=== PATIENT | male | born 1950 | race Caucasian/White ===

== ENCOUNTER 2017-12-22 18:50 | Inpatient (IN) | payer MEDICARE ==
[~2017-12-22] VITALS: Ht 172.7 cm; Wt 85.8 kg
[~2017-12-22 18:50] MED LIST: ACETAMINOPHEN650 MG PO; ASPIR 8181 MG PO; BACLOFEN10 MG PO; BUSPIRONE HCL5 MG PO; CARBAMAZEPINE200 MG PO; DICYCLOMINE HCL10 MG PO; FERROUS SULFATE PO; LASIX40 MG PO; LIDOCAINE; LORAZEPAM1 MG PO; MELOXICAM7.5 MG PO; METOPROLOL TART25 MG PO; METOPROLOL TART50 MG PO; NITROSTAT0.4 MG SL; NORCO 10-325 T1 EACH PO; POTASSIUM CHLO10 ME1 PO; SIMVASTATIN40 MG PO; WARFARIN SODIUM1 MG PO; WARFARIN SODIUM2 MG PO
[2017-12-22] MEDS ORDERED: METOPROLOL TART25 MG PO (19:13)
[2017-12-22] MEDS ORDERED: ASPIRIN325 MG PO (19:13)
[2017-12-22] MEDS ORDERED: ROPINIROLE HCL1 MG PO (19:13)
[2017-12-22] MEDS ORDERED: CARBAMAZEPINE200 MG PO (19:13)
[2017-12-22 19:15] LABS: BASOPHILS % 0.1 % (0.0-1.0); EOSINOPHILS # (AUTO) 0.2 (0.0-0.4); EOSINOPHILS % 1.3 % (0.0-6.0); HEMATOCRIT 37.3 % (38.2-49.6); HEMOGLOBIN 12.6 g/dL (14.0-18.0); LYMPHOCYTES # (AUTO) 0.4 (1.0-3.2); LYMPHOCYTES % 3.2 % (18.0-39.1); MEAN CORPUSCULAR HEMOGLOBIN 31.3 pg (28-32); MEAN CORPUSCULAR HGB CONC 33.8 g/dL (31-35); MEAN CORPUSCULAR VOLUME 92.8 fL (81-99); MONOCYTES # (AUTO) 1.3 (0.2-0.8); NEUTROPHILS # (AUTO) 11.2 (2.1-6.9); NEUTROPHILS % 84.9 % (38.7-80.0); PLATELET COUNT 218 x10e3/uL (140-360); RED BLOOD COUNT 4.02 x10e6/uL (4.3-5.7); RED CELL DISTRIBUTION WIDTH 13.6 % (11.7-14.4)
[2017-12-22 19:22] LABS: INR 1.16; PROTHROMBIN TIME 13.9 seconds (11.9-14.5)
[2017-12-22 19:23] LABS: PARTIAL THROMBOPLASTIN TIME 42.6 seconds (23.8-35.5)
[2017-12-22 19:29] LABS: ALANINE AMINOTRANSFERASE 19 IU/L (0-55); ALBUMIN 3.9 g/dL (3.5-5.0); ALBUMIN/GLOBULIN RATIO 0.9 (0.8-2.0); ALKALINE PHOSPHATASE 118 IU/L (40-150); ANION GAP 17.4 mmol/L (8-16); BLOOD UREA NITROGEN 14 mg/dL (7-26); BUN/CREATININE RATIO 12 (6-25); CARBON DIOXIDE 28 mmol/L (22-29); CHLORIDE 89 mmol/L (98-107); CREATINE KINASE 62 IU/L (30-200); CREATININE, SERUM 1.17 mg/dL (0.72-1.25); EST GLOMERULAR FILTRATION RATE > 60 ML/MIN (60-); GLUCOSE 124 mg/dL (74-118); POTASSIUM 3.4 mmol/L (3.5-5.1); SODIUM 131 mmol/L (136-145)
[2017-12-22 19:29] LABS: ABG HCO3 30 mmol/L (23-28); ABG PCO2 29 mmHg (41-51); ABG PH 7.62 (7.31-7.41); ABG PO2 84 mmHg (80-105)
[2017-12-22 19:49] LABS: THYROID STIMULATING HORMONE 1.022 uIU/mL (0.350-4.940)
--- NOTE | 2017-12-22 19:50 | Diagnostic Imaging Report ---
EXAM: CHEST SINGLE (PORTABLE), AP 1 view INDICATION: Shortness of breath, disoriented COMPARISON: None FINDINGS: LINES/TUBES: None LUNGS: Bilateral interstitial and airspace opacities. PLEURA: No effusions or pneumothorax. HEART AND MEDIASTINUM: Normal for technique. Median sternotomy wires. BONES AND SOFT TISSUES: No acute findings. IMPRESSION: Bilateral interstitial and airspace opacities. Findings suggest pulmonary edema. Multifocal pneumonia can have a similar appearance. Signed by: Dr. Aditi Tomas M.D. on 12/22/2017 7:46 PM
[2017-12-22] MEDS ORDERED: SODIUM CHLORIDE FLUSH 10 ML SYR INJ PRN (20:15)
[2017-12-22 20:16] LABS: PLATELET ESTIMATE ADEQUATE; PLATELET MORPHOLOGY COMMENT NORMAL; RBC MORPHOLOGY COMMENT NORMAL
[2017-12-22] MEDS ORDERED: SIMVASTATIN40 MG PO (20:16)
[2017-12-22] MEDS ORDERED: FUROSEMIDE INJ 10 MG/ML 4 ML VIAL IV ONE (20:30)
--- OUTSIDE RECORDS SUMMARY | 2017-12-22 20:37 | XMS REPORT ---
Author Author [facility] Address Unknown Phone Unavailable Care Team Providers Care Radio Interference Investigator Name Role Phone BHARATH CALDWELL Unavailable Unavailable Problems This patient has no known problems. Allergies, Adverse Reactions, Alerts This patient has no known allergies or adverse reactions. Medications This patient has no known medications. Results Test Description Test Time Test Comments Text Results Atomic Results Result Comments CHEST SINGLE (PORTABLE) [place] [id number] Patient Name: SIDNEY ALLEN JR MR #: [id number] : 1950 Age/Sex: 67/M Req #: [id number] Adm Physician: Ordered by: BHARATH CALDWELL MD Report #: [id number] Location: ER Room/Bed: ___ Procedure: [id number] DX/CHEST SINGLE (PORTABLE) Exam Date: 12/22/17 Exam Time: 1914 REPORT STATUS: Signed EXAM: CHEST SINGLE (PORTABLE), AP 1 view INDICATION: Shortness of breath, disoriented COMPARISON: None FINDINGS: LINES/TUBES: None LUNGS: Bilateral interstitial and airspace opacities. PLEURA: No effusions or pneumothorax. HEART AND MEDIASTINUM: Normal for technique. Median sternotomy wires. BONES AND SOFT TISSUES: No acute findings. IMPRESSION: Bilateral interstitial and airspace opacities. Findings suggest pulmonary edema. Multifocal pneumonia can have a similar appearance. Signed by: Dr. Anay Rodriguez M.D. on 12/22/2017 7:46 PM Dictated By: ANAY RODRIGUEZ MD 43 Transcribed By: ALE on 12/22/171945 COPY TO: BHARATH CALDWELL MD
[2017-12-22 21:48] VITALS: BP 162/87
[2017-12-22 22:43] VITALS: BP 162/87
[2017-12-23] VITALS (7 sets, daily range): BP systolic 112–141; BP diastolic 57–84
[2017-12-23 06:00] LABS: BASOPHILS % 0.2 % (0.0-1.0); EOSINOPHILS # (AUTO) 0.3 (0.0-0.4); EOSINOPHILS % 1.9 % (0.0-6.0); HEMATOCRIT 34.6 % (38.2-49.6); HEMOGLOBIN 11.5 g/dL (14.0-18.0); LYMPHOCYTES # (AUTO) 0.6 (1.0-3.2); LYMPHOCYTES % 4.4 % (18.0-39.1); MEAN CORPUSCULAR HEMOGLOBIN 31.7 pg (28-32); MEAN CORPUSCULAR HGB CONC 33.2 g/dL (31-35); MEAN CORPUSCULAR VOLUME 95.3 fL (81-99); MONOCYTES # (AUTO) 1.6 (0.2-0.8); NEUTROPHILS # (AUTO) 10.9 (2.1-6.9); PLATELET COUNT 214 x10e3/uL (140-360); RED BLOOD COUNT 3.63 x10e6/uL (4.3-5.7); RED CELL DISTRIBUTION WIDTH 13.6 % (11.7-14.4)
[2017-12-23 06:21] LABS: ANION GAP 17.1 mmol/L (8-16); BLOOD UREA NITROGEN 13 mg/dL (7-26); BUN/CREATININE RATIO 14 (6-25); CALCIUM 8.8 mg/dL (8.4-10.2); CARBON DIOXIDE 29 mmol/L (22-29); CHLORIDE 92 mmol/L (98-107); CREATININE, SERUM 0.93 mg/dL (0.72-1.25); EST GLOMERULAR FILTRATION RATE > 60 ML/MIN (60-); GLUCOSE 100 mg/dL (74-118); POTASSIUM 3.1 mmol/L (3.5-5.1); SODIUM 135 mmol/L (136-145)
[2017-12-23 06:32] LABS: CREATINE KINASE MB 1.3 ng/mL (0-5.0)
[2017-12-23] MEDS: LEVOFLOXACIN 500MG/D5W 100ML 100 ML IV SCH (07:30)
[2017-12-23 07:39] LABS: EOSINOPHILS % (MANUAL) 1 % (0-7); LYMPHOCYTES % (MANUAL) 6 % (19-48); MONOCYTES % (MANUAL) 5 % (3.4-9.0); NEUTROPHILS % (MANUAL) 88 % (40-74); PLATELET ESTIMATE ADEQUATE; PLATELET MORPHOLOGY COMMENT NORMAL; RBC MORPHOLOGY COMMENT NORMAL
--- NOTE | 2017-12-23 07:44 | History and Physical ---
A 67-year-old gentleman comes in with acute dyspnea. HISTORY OF PRESENT ILLNESS: This is Mr. Matt Nowak who is a 67-year-old gentleman with a history of hypertension, history of hyperlipidemia, history of CHF who was in his usual state of health until 3-4 hours prior to admission. The patient started to have acute severe dyspnea worsened by exertion. The patient did have some orthopnea too the previous night, and came in and was in congestive heart failure exacerbation. PAST MEDICAL HISTORY: History of hypertension, history of CHF, history of CAD, history of CABG. The patient also has a history of HDL, history of restless leg syndrome, and also history of anxiety. MEDICATIONS 1. Aspirin 325 mg. 2. Buspar 5 mg. 3. Carbamazepine 200 mg. 4. Lasix 40 mg. 5. Metoprolol 25 mg twice a day. 6. Potassium 10 mEq. 7. Propranolol. 8. Simvastatin. SURGICAL HISTORY: History of CABG and also history of valve replacement. The patient also has a history of [place] in the past. FAMILY HISTORY: Positive for diabetes mellitus and positive for CAD in father and sister and palpitations. REVIEW OF SYSTEMS: Negative for chest pain. Positive for shortness of breath. Positive for orthopnea. No PND. No hematochezia. No hematemesis. No diplopia. No blurry vision. No hematuria. No headaches. PHYSICAL EXAMINATION GENERAL: The patient is alert and oriented times 3. A bit anxious. VITAL SIGNS: Temperature is 96.2, pulse 102, blood pressure 162/87. HEENT: Normocephalic and atraumatic. Pupils reactive to light and accommodation. CV: S1 and S2 normal with ejection systolic murmur. CHEST: Positive for crackles in the lung bases. ABDOMEN: Nontender and nondistended. EXTREMITIES: Trace edema. LABORATORY VALUES: INR was 1.16. Hematology: White count was 13,000 with a neutrophil count of 84.9. Chemistries were initial sodium 131, potassium 3.4, creatinine 1.17. ALT, AST and ALK was negative. BNP was 318. TSH was 1.012. Chest x-ray shows pulmonary edema. ASSESSMENT: Congestive heart failure. The patient is on Lasix. Will also check his potassium and replace potassium as needed. Echocardiogram will be ordered. Cardiac consult with Dr. Alarcon has been done. Will continue to monitor the patient. Further recommendations per clinical course. Will also restart home medications. The patient has . Apparently, echocardiogram was done recently. Will go ahead and have Dr. Alarcon look at the previous echocardiogram. Further recommendations per clinical course. Daily weights. Low salt diet. Also, monitor the patient's aortic stenosis. The patient has [id number] congestive heart failure and leukocytosis. Job#: [id number] RI
[2017-12-23] MEDS: BUSPIRONE HCL 5 MG TAB PO SCH ×2 (09:00→17:00)
[2017-12-23] MEDS: METOPROLOL TARTRATE 25 MG TAB PO SCH ×2 (09:00→17:00)
[2017-12-23] MEDS: FUROSEMIDE INJ 10 MG/ML 4 ML VIAL IV SCH ×2 (09:00→17:00)
[2017-12-23] MEDS ORDERED: FUROSEMIDE 40 MG TAB PO SCH (09:00)
[2017-12-23] MEDS: ASPIRIN 325 MG TAB PO SCH (09:00)
[2017-12-23] MEDS: POTASSIUM CHLORIDE 10 MEQ TABCR PO SCH ×2 (09:00→17:00)
[2017-12-23] MEDS: ROPINIROLE HCL 1 MG TAB PO SCH ×2 (09:00→17:00)
[2017-12-23] MEDS ORDERED: SODIUM CHLORIDE 0.9% 250ML 250 ML ONE (09:16)
[2017-12-23] MEDS: CARBAMAZEPINE 200 MG TAB PO SCH ×4 (09:51→21:29)
[2017-12-23 15:03] LABS: CREATINE KINASE MB 1.4 ng/mL (0-5.0)
[2017-12-23] MEDS ORDERED: ONDANSETRON HCL INJ 2 MG/ML VIAL IV PRN (19:30)
[2017-12-23] MEDS: ONDANSETRON HCL 4 MG ORAL DISINTEGRATING TAB PO PRN (19:56)
[2017-12-23] MEDS: SIMVASTATIN 40 MG TAB PO SCH (21:29)
[2017-12-24] VITALS (7 sets, daily range): BP systolic 96–143; BP diastolic 60–81
[2017-12-24] MEDS: CARBAMAZEPINE 200 MG TAB PO SCH ×6 (02:26→22:30)
[2017-12-24 06:24] LABS: BASOPHILS % 0.3 % (0.0-1.0); EOSINOPHILS # (AUTO) 0.3 (0.0-0.4); EOSINOPHILS % 2.1 % (0.0-6.0); HEMATOCRIT 34.9 % (38.2-49.6); HEMOGLOBIN 11.6 g/dL (14.0-18.0); LYMPHOCYTES # (AUTO) 0.8 (1.0-3.2); LYMPHOCYTES % 5.3 % (18.0-39.1); MEAN CORPUSCULAR HEMOGLOBIN 30.9 pg (28-32); MEAN CORPUSCULAR HGB CONC 33.2 g/dL (31-35); MEAN CORPUSCULAR VOLUME 92.8 fL (81-99); MONOCYTES # (AUTO) 1.6 (0.2-0.8); MONOCYTES % 11.3 % (4.4-11.3); NEUTROPHILS # (AUTO) 11.5 (2.1-6.9); NEUTROPHILS % 80.4 % (38.7-80.0); PLATELET COUNT 218 x10e3/uL (140-360); RED BLOOD COUNT 3.76 x10e6/uL (4.3-5.7); RED CELL DISTRIBUTION WIDTH 13.4 % (11.7-14.4)
[2017-12-24 06:45] LABS: ANION GAP 16.1 mmol/L (8-16); BLOOD UREA NITROGEN 13 mg/dL (7-26); BUN/CREATININE RATIO 15 (6-25); CALCIUM 9.6 mg/dL (8.4-10.2); CARBON DIOXIDE 30 mmol/L (22-29); CHLORIDE 89 mmol/L (98-107); CREATININE, SERUM 0.89 mg/dL (0.72-1.25); EST GLOMERULAR FILTRATION RATE > 60 ML/MIN (60-); GLUCOSE 96 mg/dL (74-118); POTASSIUM 3.1 mmol/L (3.5-5.1); SODIUM 132 mmol/L (136-145)
[2017-12-24] MEDS: LEVOFLOXACIN 500MG/D5W 100ML 100 ML IV SCH (07:30)
[2017-12-24 07:57] LABS: EOSINOPHILS % (MANUAL) 3 % (0-7); LYMPHOCYTES % (MANUAL) 3 % (19-48); MONOCYTES % (MANUAL) 12 % (3.4-9.0); MYELOCYTES % (MANUAL) 1 % (0-0); NEUTROPHILS % (MANUAL) 80 % (40-74)
[2017-12-24 07:58] LABS: ANISOCYTOSIS SLIGHT; PLATELET ESTIMATE ADEQUATE; RBC MORPHOLOGY COMMENT NORMAL
[2017-12-24 07:59] LABS: PLATELET MORPHOLOGY COMMENT NORMAL
[2017-12-24] MEDS: POTASSIUM CHLORIDE 10 MEQ TABCR PO SCH ×2 (09:00→17:00)
[2017-12-24] MEDS: ASPIRIN 325 MG TAB PO SCH (09:00)
[2017-12-24] MEDS: BUSPIRONE HCL 5 MG TAB PO SCH ×2 (09:00→17:00)
[2017-12-24] MEDS: METOPROLOL TARTRATE 25 MG TAB PO SCH ×2 (09:00→17:00)
[2017-12-24] MEDS: FUROSEMIDE 40 MG TAB PO SCH ×2 (09:00→17:00)
[2017-12-24] MEDS: ROPINIROLE HCL 1 MG TAB PO SCH ×2 (09:00→17:00)
[2017-12-24] MEDS ORDERED: POTASSIUM CHLORIDE 20 MEQ TAB CR PO ONE (09:25)
[2017-12-24] MEDS: ONDANSETRON HCL 4 MG ORAL DISINTEGRATING TAB PO PRN (18:55)
[2017-12-24] MEDS: SIMVASTATIN 40 MG TAB PO SCH (21:00)
[2017-12-25 00:38] VITALS: BP 108/67
[2017-12-25] MEDS: CARBAMAZEPINE 200 MG TAB PO SCH ×3 (02:30→09:01)
[2017-12-25 04:00] VITALS: BP 129/82
[2017-12-25 08:00] VITALS: BP 139/86
[2017-12-25] MEDS: LEVOFLOXACIN 500MG/D5W 100ML 100 ML IV SCH (08:30)
[2017-12-25] MEDS: ASPIRIN 325 MG TAB PO SCH (09:00)
[2017-12-25] MEDS ORDERED: LISINOPRIL 2.5 MG TAB PO SCH (09:00)
[2017-12-25] MEDS: POTASSIUM CHLORIDE 10 MEQ TABCR PO SCH (09:00)
[2017-12-25] MEDS: BUSPIRONE HCL 5 MG TAB PO SCH (09:00)
[2017-12-25] MEDS: METOPROLOL TARTRATE 25 MG TAB PO SCH (09:01)
[2017-12-25] MEDS: FUROSEMIDE 40 MG TAB PO SCH (09:01)
[2017-12-25] MEDS: ROPINIROLE HCL 1 MG TAB PO SCH (09:01)
[2017-12-25] MEDS ORDERED: LISINOPRIL2.5 MG PO (10:27)
== END 2017-12-25 10:49 | disposition home or self-care (01) | DRG 292 ==
LOC: ER 18:50 → ERHOLD 20:03 → MED/SURG2 21:05
PROVIDERS: ADMIT Internal Medicine; ATTEND Internal Medicine
DX: I11.0 Hypertensive heart disease with heart failure (principal); E87.1 Hypo-osmolality and hyponatremia; E78.5 Hyperlipidemia, unspecified; Z95.1 Presence of aortocoronary bypass graft; Z95.2 Presence of prosthetic heart valve; I25.10 Atherosclerotic heart disease of native coronary artery without angina pectoris; I25.2 Old myocardial infarction; I35.0 Nonrheumatic aortic (valve) stenosis; I50.23 Acute on chronic systolic (congestive) heart failure; E87.6 Hypokalemia; E78.00 Pure hypercholesterolemia, unspecified; Z79.82 Long term (current) use of aspirin; Z79.899 Other long term (current) drug therapy
CPT/HCPCS: 36415; 80048; 85025; 93005; 93306; 99284; J1940; J1956; J7050

== ENCOUNTER → 2018-01-31 | Outpatient (CLI) | payer MEDICARE ==
[~2018-01-31] MED LIST changes: +ASPIRIN325 MG PO; +LISINOPRIL2.5 MG PO; +ROPINIROLE HCL1 MG PO
--- NOTE | 2018-01-31 13:38 | Diagnostic Imaging Report ---
PROCEDURE: Frontal and lateral views of the chest. COMPARISON: Chest radiograph 12/23/1999 INDICATIONS: SOB FINDINGS: Lines/tubes: None. Lungs: The lungs are well inflated. Mild bilateral interstitial and airspace opacities. Pleura: There is no pleural effusion or pneumothorax. Heart and mediastinum: Median sternotomy wires and CABG clips. Aortic calcifications. The heart and the mediastinum are otherwise normal. Bones: No acute bony abnormality. IMPRESSION: Bilateral interstitial and airspace opacities which may suggest interstitial edema. Multifocal pneumonia may have a similar appearance. Dictated by: Carlos Eagle M.D. on 01/31/2018 at 13:43 Electronically approved by: Carlos Eagle M.D. on 01/31/2018 at 13:43
== END ==
LOC: RAD 12:22
PROVIDERS: ATTEND Internal Medicine
DX: R06.02 Shortness of breath (principal)
CPT/HCPCS: 71046

== ENCOUNTER 2018-09-29 11:05 | Observation (INO) | payer MEDICARE ==
[2018-09-26 11:09] LABS: BASOPHILS % 0.2 % (0.0-1.0); EOSINOPHILS # (AUTO) 0.1 (0.0-0.4); EOSINOPHILS % 0.9 % (0.0-6.0); HEMATOCRIT 36.5 % (38.2-49.6); HEMOGLOBIN 12.1 g/dL (14.0-18.0); LYMPHOCYTES # (AUTO) 0.5 (1.0-3.2); LYMPHOCYTES % 4.8 % (18.0-39.1); MEAN CORPUSCULAR HEMOGLOBIN 31.4 pg (28-32); MEAN CORPUSCULAR HGB CONC 33.2 g/dL (31-35); MEAN CORPUSCULAR VOLUME 94.8 fL (81-99); MONOCYTES # (AUTO) 1.1 (0.2-0.8); MONOCYTES % 10.6 % (4.4-11.3); NEUTROPHILS % 82.9 % (38.7-80.0); PLATELET COUNT 165 x10e3/uL (140-360); RED BLOOD COUNT 3.85 x10e6/uL (4.3-5.7); RED CELL DISTRIBUTION WIDTH 13.6 % (11.7-14.4)
[2018-09-26 11:22] LABS: INR 0.92; PROTHROMBIN TIME 13.2 seconds (11.9-14.5)
[2018-09-26 11:30] LABS: ANION GAP 13.1 mmol/L (8-16); CALCIUM 9.4 mg/dL (8.4-10.2); CREATININE, SERUM 1.54 mg/dL (0.72-1.25); POTASSIUM 4.1 mmol/L (3.5-5.1)
--- NOTE | 2018-09-26 17:30 | NUR ---
Dr. Castro notified of elevated BUN and Creatinine. No new orders at this time. Dr. Castro ordered for patient to hold aspirin day of the procedure.
--- NOTE | 2018-09-26 17:35 | NUR ---
Attempted to contact patient via phone number provided. No answer. Message left.
--- NOTE | 2018-09-26 18:00 | NUR ---
Notified Patient's Heidi of Dr. Castro stated to hold aspirin day of surgery. Heidi Pacheco verbalized understanding and asked what time for patient to arrive on saturday09/29/18 day of procedure. Explained to Heidi patient is to arrive at 1130 on Saturday09/29/18. Heidi Pacheco verbalized understanding and had no further questions at this time.
[2018-09-29] VITALS (10 sets, daily range): BP systolic 89–123; BP diastolic 52–77
[~2018-09-29] VITALS: Ht 172.7 cm; Wt 86.0 kg
[~2018-09-29 11:05] MED LIST changes: +FLUTICASONE FUROATE IH; +METOLAZONE5 MG PO; +METOPROLOL SUCC25 MG PO; +ONDANSETRON PO; +TAMSULOSIN HCL0.4 MG PO; +VITAMIN B12 IM; +VITAMIN D35000 UNIT PO
--- OUTSIDE RECORDS SUMMARY | 2018-09-29 11:14 | XMS REPORT | Continuity of Care Document ---
Author Author [facility] Interface Address Unknown Phone Unavailable Problems Problem Status Onset Date Classification Date Reported Comments Source Anemia Active 06/02/2015 Problem 12/25/2017 [facility] CHF Active 03/22/2015 Problem 12/25/2017 [facility] Medications Medication Details Route Status Patient Instructions Ordering Provider Order Date Source Acetaminophen 650 Mg Supp, 650 Mg Oral As Needed Active 12/22/2017 [facility] Aspirin (Aspir 81) 81 Mg Tablet.dr, 81 Mg Oral Daily Active 12/22/2017 [facility] Baclofen 10 Mg Tablet, 10 Mg Oral Three Times A Day Active 12/22/2017 [facility] Carbamazepine 200 Mg Tablet, 200 Mg Oral Three Times A Day Active 12/22/2017 [facility] Dicyclomine Hcl 10 Mg Capsule, 10 Mg Oral Daily Active 12/22/2017 [facility] Hydrocodone Bit/Acetaminophen (Buford 10-325 Tablet) 1 Each Tablet, 1 Tab Oral Every 6 Hours as needed for Pain Active 12/22/2017 [facility] Meloxicam 7.5 Mg Tablet, 15 Mg Oral Daily Active 12/22/2017 [facility] Metoprolol Tartrate 25 Mg Tablet, 12.5 Mg Oral Twice A Day Active 12/22/2017 [facility] Warfarin Sodium 1 Mg Tablet, 1 Mg Oral Daily Active 12/22/2017 [facility] Ferrous Sulfate , 1 Tab Oral Daily Active 07/07/2015 [facility] Lorazepam 1 Mg Tablet, 1 Mg Oral Bedtime as needed for Anxiety Active 07/07/2015 [facility] Nitroglycerin (Nitrostat) 0.4 Mg Tab.subl, 1 Tab Sublingual Every 5 Minutes as needed for Chest Pain Active 07/07/2015 [facility] Simvastatin 40 Mg Tablet, 40 Mg Oral Today At 9:00PM Active 07/07/2015 [facility] Hydrocodone Bit/Acetaminophen (Buford 10-325 Tablet) 1 Each Tablet, 1 Tab Oral Every 6 Hours as needed for Pain Active 06/02/2015 [facility] Lidocaine Hcl (Lidocaine Hcl 2% Abboject) 100 Mg/5 Ml Syr, As Needed Active 06/02/2015 [facility] Metoprolol Tartrate 50 Mg Tablet, 50 Mg Oral Twice A Day Active 03/23/2015 [facility] Warfarin Sodium 2 Mg Tablet, 2 Mg Oral Daily Active 03/23/2015 [facility] Aspirin 325 Mg Tablet Daily Active [facility] Buspirone Hcl 5 Mg Tablet Twice A Day Active [facility] Carbamazepine 200 Mg Tablet Every 4 Hours Active [facility] Furosemide (Lasix) 40 Mg Tablet Twice A Day Active [facility] Lisinopril 2.5 Mg Tablet Daily Active [facility] Metoprolol Tartrate 25 Mg Tablet Twice A Day Active [facility] Potassium Chloride 10 Meq Tab.er.prt Twice A Day Active [facility] Ropinirole Hcl 1 Mg Tablet Twice A Day Active [facility] Simvastatin 40 Mg Tablet Today At 9:00PM Active [facility] Allergies, Adverse Reactions, Alerts Substance Category Reaction Severity Reaction type Status Date Reported Comments Source Immunizations Immunization Date Given Site Status Last Updated Comments Source Results Order Name Results Value Reference Range Date Interpretation Comments Source Automated blood basophil count (count/volume) Automated blood basophil count (count/volume) 0.0 0.0 - 0.1 12/24/2017 [facility] Automated blood basophil count as percentage of total leukocytes Automated blood basophil count as percentage of total leukocytes 0.3 0.0 - 1.0 12/24/2017 [facility] Automated blood eosinophil count Automated blood eosinophil count 0.3 0.0 - 0.4 12/24/2017 [facility] Automated blood eosinophil count as percentage of total leukocytes Automated blood eosinophil count as percentage of total leukocytes 2.1 0.0 - 6.0 12/24/2017 [facility] Automated blood hematocrit (volume fraction) Automated blood hematocrit (volume fraction) 34.9 38.2 - 49.6 12/24/2017 [facility] Automated blood lymphocyte count as percentage ot total leukocytes Automated blood lymphocyte count as percentage ot total leukocytes 5.3 18.0 - 39.1 12/24/2017 [facility] Automated blood monocyte count as percentage of total leukocytes Automated blood monocyte count as percentage of total leukocytes 11.3 4.4 - 11.3 12/24/2017 [facility] Automated blood neutrophil count Automated blood neutrophil count 11.5 2.1 - 6.9 12/24/2017 [facility] Automated blood platelet count (count/volume) Automated blood platelet count (count/volume) 218 140 - 360 12/24/2017 [facility] Automated blood segmented neutrophil count as percentage of total leukocytes Automated blood segmented neutrophil count as percentage of total leukocytes 80.4 38.7 - 80.0 12/24/2017 [facility] Automated erythrocyte mean corpuscular hemoglobin (mass per erythrocyte) Automated erythrocyte mean corpuscular hemoglobin (mass per erythrocyte) 30.9 28 - 32 12/24/2017 [facility] Automated erythrocyte mean corpuscular hemoglobin concentration measurement (mass/volume) Automated erythrocyte mean corpuscular hemoglobin concentration measurement (mass/volume) 33.2 31 - 35 12/24/2017 [facility] Automated erythrocyte mean corpuscular volume Automated erythrocyte mean corpuscular volume 92.8 81 - 99 12/24/2017 [facility] Blood anisocytosis detection by light microscopy Blood anisocytosis detection by light microscopy SLIGHT 12/24/2017 [facility] Blood erythrocytes automated count (number/volume) Blood erythrocytes automated count (number/volume) 3.76 4.3 - 5.7 12/24/2017 [facility] Blood hemoglobin measurement (moles/volume) Blood hemoglobin measurement (moles/volume) 11.6 14.0 - 18.0 12/24/2017 [facility] Blood leukocytes automated count (number/volume) Blood leukocytes automated count (number/volume) 14.32 4.8 - 10.8 12/24/2017 [facility] Blood lymphocytes count (number/volume) Blood lymphocytes count (number/volume) 0.8 1.0 - 3.2 12/24/2017 [facility] Blood lymphocytes variant count (number/volume) Blood lymphocytes variant count (number/volume) 1 12/24/2017 [facility] Blood monocytes automated count (number/volume) Blood monocytes automated count (number/volume) 1.6 0.2 - 0.8 12/24/2017 [facility] Blood platelets count by estimate (number/volume) Blood platelets count by estimate (number/volume) ADEQUATE 12/24/2017 [facility] Estimated glomerular filtration rate (GFR) determination Estimated glomerular filtration rate (GFR) determination null 60 12/24/2017 [facility] Glucose measurement Glucose measurement 96 74 - 118 12/24/2017 [facility] Manual blood eosinophil count as percentage of total leukocytes Manual blood eosinophil count as percentage of total leukocytes 3 0 - 7 12/24/2017 [facility] Manual blood lymphocytes/100 leukocytes Manual blood lymphocytes/100 leukocytes 3 19 - 48 12/24/2017 [facility] Manual blood monocytes/100 leukocytes Manual blood monocytes/100 leukocytes 12 3.4 - 9.0 12/24/2017 [facility] Manual blood myelocytes/100 leukocytes Manual blood myelocytes/100 leukocytes 1 0 - 0 12/24/2017 [facility] Manual blood neutrophils/100 leukocytes Manual blood neutrophils/100 leukocytes 80 40 - 74 12/24/2017 [facility] Platelet morphology Platelet morphology NORMAL 12/24/2017 [facility] RBC morphology RBC morphology NORMAL 12/24/2017 [facility] Serum or plasma anion gap Serum or plasma anion gap 16.1 8 - 16 12/24/2017 [facility] Serum or plasma calcium measurement (mass/volume) Serum or plasma calcium measurement (mass/volume) 9.6 8.4 - 10.2 12/24/2017 [facility] Serum or plasma carbon dioxide, total measurement (moles/volume) Serum or plasma carbon dioxide, total measurement (moles/volume) 30 22 - 29 12/24/2017 [facility] Serum or plasma chloride measurement (moles/volume) Serum or plasma chloride measurement (moles/volume) 89 98 - 107 12/24/2017 [facility] Serum or plasma creatinine measurement (mass/volume) Serum or plasma creatinine measurement (mass/volume) 0.89 0.72 - 1.25 12/24/2017 [facility] Serum or plasma potassium measurement (moles/volume) Serum or plasma potassium measurement (moles/volume) 3.1 3.5 - 5.1 12/24/2017 [facility] Serum or plasma sodium measurement (moles/volume) Serum or plasma sodium measurement (moles/volume) 132 136 - 145 12/24/2017 [facility] Serum or plasma urea nitrogen measurement (mass/volume) Serum or plasma urea nitrogen measurement (mass/volume) 13 7 - 26 12/24/2017 [facility] Serum or plasma urea nitrogen/creatinine mass ratio Serum or plasma urea nitrogen/creatinine mass ratio 15 6 - 25 12/24/2017 [facility] Red Cell Distribution Width 13.4 11.7 - 14.4 12/24/2017 [facility] IM GRANULOCYTES % 0.6 0.0 - 1.0 12/24/2017 [facility] Absolute Immature Granulocyte (auto 0.08 0 - 0.1 12/24/2017 [facility] Differential Total Cells Counted 100 12/24/2017 [facility] Serum or plasma creatine kinase MB measurement (mass/volume) Serum or plasma creatine kinase MB measurement (mass/volume) 1.40 0 - 5.0 12/23/2017 [facility] Serum or plasma creatine kinase measurement (enzymatic activity/volume) Serum or plasma creatine kinase measurement (enzymatic activity/volume) 51 30 - 200 12/23/2017 [facility] Troponin I measurement by highly sensitive enzyme immunoassay Troponin I measurement by highly sensitive enzyme immunoassay 0.044 0 - 0.300 12/23/2017 [facility] Arterial blood base excess by calculation Arterial blood base excess by calculation 8.0 -2 - 3 - 2 12/22/2017 [facility] Arterial blood bicarbonate measurement (moles/volume) Arterial blood bicarbonate measurement (moles/volume) 30 23 - 28 12/22/2017 [facility] Arterial blood oxygen saturation measurement Arterial blood oxygen saturation measurement 98.0 95 - 98 12/22/2017 [facility] Arterial blood pH measurement Arterial blood pH measurement 7.62 7.31 - 7.41 12/22/2017 [facility] Arterial Blood Partial Pressure CO2 29 41 - 51 12/22/2017 [facility] Arterial Blood Partial Pressure O2 84 80 - 105 12/22/2017 [facility] FiO2 28 12/22/2017 [facility] Activated partial thromboplastin time (aPTT) in platelet poor plasma bycoagulation assay Activated partial thromboplastin time (aPTT) in platelet poor plasma bycoagulation assay 42.6 23.8 - 35.5 12/22/2017 [facility] Fibrin D-dimer DDU measurement in platelet poor plasma (mass/volume) Fibrin D-dimer DDU measurement in platelet poor plasma (mass/volume) 0.86 0.00 - 0.45 12/22/2017 [facility] INR in Platelet poor plasma by Coagulation assay INR in Platelet poor plasma by Coagulation assay 1.16 12/22/2017 [facility] Plasma globulin measurement (mass/volume) Plasma globulin measurement (mass/volume) 4.2 2.3 - 3.5 12/22/2017 [facility] Prothrombin time (PT) in platelet poor plasma by coagulation assay Prothrombin time (PT) in platelet poor plasma by coagulation assay 13.9 11.9 - 14.5 12/22/2017 [facility] Serum or plasma alanine aminotransferase measurement (enzymatic activity/volume) Serum or plasma alanine aminotransferase measurement (enzymatic activity/volume) 19 0 - 55 12/22/2017 [facility] Serum or plasma albumin measurement (mass/volume) Serum or plasma albumin measurement (mass/volume) 3.9 3.5 - 5.0 12/22/2017 [facility] Serum or plasma albumin/globulin mass ratio Serum or plasma albumin/globulin mass ratio 0.9 0.8 - 2.0 12/22/2017 [facility] Serum or plasma alkaline phosphatase measurement (enzymatic activity/volume) Serum or plasma alkaline phosphatase measurement (enzymatic activity/volume) 118 40 - 150 12/22/2017 [facility] Serum or plasma protein measurement (mass/volume) Serum or plasma protein measurement (mass/volume) 8.1 6.5 - 8.1 12/22/2017 [facility] Serum or plasma thyrotropin measurement by detection limit <=0.005 miu/l (units/volume) Serum or plasma thyrotropin measurement by detection limit <=0.005 miu/l (units/volume) 1.022 0.350 - 4.940 12/22/2017 [facility] Serum or plasma total bilirubin measurement (mass/volume) Serum or plasma total bilirubin measurement (mass/volume) 1.7 0.2 - 1.2 12/22/2017 [facility] Aspartate Amino Transf (AST/SGOT) 32 5 - 34 12/22/2017 [facility] B-Type Natriuretic Peptide 318.3 0 - 100 12/22/2017 [facility] Vital Signs Vital Sign Value Date Comments Source Encounters Location Location Details Encounter Type Encounter Number Reason For Visit Attending Provider ADM Date DC Date Status Source Discharged Inpatient [id number] ROSEANN CROWE MD 12/22/2017 12/25/2017 [facility] Procedures Procedure Code Date Perfomer Comments Source
[2018-09-29] MEDS ORDERED: FENTANYL CITRATE/PF 100MCG/2 ML INJ ONE (13:35)
[2018-09-29] MEDS ORDERED: MIDAZOLAM HCL 2 MG/2 ML VIAL ONE ×2 (13:35→14:15)
[2018-09-29] MEDS ORDERED: LIDOCAINE HCL 1% LOCAL INJ 20 ML VIAL ONE (13:36)
[2018-09-29] MEDS ORDERED: SODIUM CHLORIDE 0.9% 500ML 500 ML ONE (13:36)
[2018-09-29] MEDS ORDERED: SODIUM CHLORIDE 0.9% 1000ML 2,000 ML ONE (13:36)
[2018-09-29] MEDS ORDERED: BACITRACIN 50,000 UNIT VIAL ONE (13:36)
[2018-09-29] MEDS ORDERED: SODIUM CHLORIDE 0.9% 50ML 50 ML ONE (13:57)
[2018-09-29] MEDS ORDERED: CEFAZOLIN SOD 1 GM VIAL ONE (13:58)
[2018-09-29] MEDS ORDERED: SODIUM BICARBONATE 8.4% SYRING 50 ML ONE (14:08)
--- NOTE | 2018-09-29 15:45 | NUR ---
1545pm Received pt form Automotive Paint Technician. Identifier x2. Vishal Hayden BV ICD placed by Dr Castro for Cardiomyopathy.Tolerate procedure well 100 Fentanyl/4 Versed Iv off at this time, left hand #20 w/o s/s infiltration Left shoulder sling in place and DME form signed by MD and Family placed in unit folder. Resp regular. Sat 100%b on RA. Pacer 1:1 paced rhythm. Abdomen soft and non tender denies necessity to defecate or urinate. Bilateral femoral pulses x4 PD/DP. Left sc dressing dry and intact. Denies CP or SOB bed in low position . brakes locked and side rails up with call light at bedside. ds/rn
--- NOTE | 2018-09-29 16:43 | Diagnostic Imaging Report ---
Examination: Single AP view of the chest. COMPARISON: 01/31/2018 INDICATION: Status post pacer DISCUSSION: Interval placement of a left subclavian approach implantable cardiac device. The body projects over the left chest wall. Leads project over the expected regions of the right atrium, right ventricle, and coronary sinus. No pneumothorax. Stable enlargement of the cardiac silhouette with prominence of the pulmonary interstitium. Multiple median sternotomy wires and mediastinal clips. No acute osseous abnormality. IMPRESSION: Interval placement of a left subclavian approach implantable cardiac device, positioned as above. No pneumothorax. Signed by: Dr. Ori Frank M.D. on 09/29/2018 4:40 PM
--- NOTE | 2018-09-29 17:45 | NUR ---
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 VS stable, left sc dressing dry and intact with shoulder sling in place. Iv site to let hand intact w/o s/s infiltration no iv infusing.Transported via stretcher with tele Report to tele room and face to face report given as well as phone report. Pt and family explained POC and aware of PRNs if necessary shady/janine
--- NOTE | 2018-09-29 18:00 | NUR ---
received pt to floor aa0x3. pt is in no s.s of distress. pt is s/p pacemaker. pt is on telemetry monitoring running paced in the 80. pt has a dressing to the left upper chest . dressing is dry and intact. sling present. pt has an iv to the left hand admission complete. pt skin is intact. bruise to the right lower groin bruised s/p heart cath done last week. will continue to care for pt at this time side railsx2, bedwheels locked, call light is within easy reach, instructed to call for assistance if needed
--- NOTE | 2018-09-29 18:24 | NUR ---
1800pm assisted to bed with stretcher and RN Escorted. Left sc remain intact with dressing dry and POC reinforced with staff and family .Call light at bedside .Face to face report completed with Nurse ELIZABETH Wallace. Bed lock in place and in low position. Requested BS nurse to followup with dinner tray n beef wanted and cardiac diet. Iv intact w/o fluids running. No signs of infiltration to hand iv site. 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 POC to dc in am if agreeable with . shady/rn
[2018-09-29] MEDS ORDERED: MORPHINE SULFATE INJ 4 MG/ML INJ 1ML IV PRN (18:45)
[2018-09-29] MEDS ORDERED: ONDANSETRON HCL INJ 2MG/ML 2ML 2 MG/ML VIAL IV PRN (18:45)
--- NOTE | 2018-09-29 18:45 | NUR ---
jeremiah gomez for home medication renewal. awaiting for call back
--- NOTE | 2018-09-29 19:15 | NUR ---
Report received and walking rounds complete. Pt resting at bedside and in no apparent distress. Pt has tele and left arm sling with pressure dressing s/p pacemaker placement.
--- NOTE | 2018-09-29 19:37 | NUR ---
Dr. Castro called again re:restarting pt home meds. Awaiting return call.
[2018-09-29] MEDS ORDERED: ZOLPIDEM TARTRATE 5 MG TAB PO SCH (21:00)
--- NOTE | 2018-09-29 21:05 | NUR ---
Pt awaited call from MD to restart home meds but didn't want to wait any longer and pt has own supply for meds and took his own Tegretol rx. Will notify MD when call returned.
[2018-09-29] MEDS ORDERED: HYDROCODONE/APAP 10MG-325MG TAB PO PRN (21:30)
[2018-09-29] MEDS ORDERED: ACETAMINOPHEN 325 MG TAB PO PRN (21:30)
--- NOTE | 2018-09-29 21:37 | NUR ---
Dr. Castro returned call; MD carter for restart of all pt home meds. Also pt c/o headache. gave orders for Tyelnol 650 mg q 6h prn.
[2018-09-29] MEDS ORDERED: SIMVASTATIN 40 MG TAB PO SCH (22:00)
[2018-09-29] MEDS ORDERED: ROPINIROLE HCL 1 MG TAB PO SCH (22:00)
[2018-09-30] VITALS: BP 102/64
--- NOTE | 2018-09-30 00:31 | Operative Report ---
DATE OF PROCEDURE: 09/29/2018 SURGEON: Merissa Castro MD PREPROCEDURAL DIAGNOSES: 1. Ischemic heart disease with ejection fraction of 30-35%. 2. Acute on chronic systolic and diastolic congestive heart failure, NYHA functional class III. 3. Left bundle branch block with QRS duration of 136 milliseconds. 4. Hypertension. 5. Chronic renal insufficiency. POSTPROCEDURAL DIAGNOSES: 1. Ischemic heart disease with ejection fraction of 30-35%. 2. Acute on chronic systolic and diastolic congestive heart failure, NYHA functional class III. 3. Left bundle branch block with QRS duration of 136 milliseconds. 4. Hypertension. 5. Chronic renal insufficiency. PROCEDURE PERFORMED: 1. [place] scientific biventricular ICD implant in the left pectoral region. 2. Coronary sinus venogram. 3. Moderate sedation. PROCEDURE IN DETAIL: Mr. Pacheco was brought to the labor conciliator at [facility] in the fasting and un-sedated state. The left pectoral region was prepped and draped in a sterile manner. The pocket was formed in pectoral region with a combination of electrocautery, blunt, and sharp dissection. Access to the axillary vein was made in the pocket and 3 guidewires placed in the vein with tips in the IVC. A 9 Norwegian sheath was placed over the first guidewire through which a [place] single coil ICD lead, model #0292, serial #[id number] was implanted in the right ventricular apex without complications. Adequate pacing and sensing parameters were observed and the sheath was peeled away and lead secured to the underlying fascia with 0 silk. A 9.5 Norwegian sheath was then placed over the second guidewire through which an LV guiding sheath with an AL2 and 0.35 Wholey wire was used to cannulate the coronary sinus. The LV guiding sheath was then advanced into the coronary sinus without any complications and the CS venogram was performed with a 6-Norwegian balloon tip catheter. An excellent mid lateral branch was visualized. An Acuity Straight quadripolar lead, model #4671, serial #[id number], was implanted into this branch without complications. Adequate pacing and sensing parameters were observed and the sheath was peeled away and lead secured to the underlying fascia with 0 silk. A 6 Norwegian sheath was then placed over the remaining guidewire through which a Ingevity MRI pacing lead, model #7740, serial #[id number], was implanted in the right atrial appendage without complications. Adequate pacing and sensing parameters were observed and the sheath was peeled away. Lead secured to the underlying fascia with 0 silk. Pocket was irrigated with antibiotic- containing normal saline with pulse irrigation and pulse lavage tool. Model #G158, serial #[id number]. The generator leads were then placed in the pocket and secured to the underlying fascia with 0 silk. The pocket was closed in 3 layers with 2-0 Vicryl for the deeper subcutaneous layers and 4-0 Vicryl for the skin. Dermabond was placed for additional skin approximation. The right ventricular lead has R waves of 25 millivolts with threshold of 1 volt, pulse width of 0.5 milliseconds and pacing impedance of 564 ohms. Shock impedance of 77 ohms. The left ventricular lead has a threshold of 0.9 volts, pulse width of 0.5 milliseconds and pacing impedance of 781 ohms. The right atrial lead has P waves of 6.2 millivolts and threshold of 0.8 volts with a pulse width of 0.5 milliseconds and the pacing impedance of 664 ohms. Moderate sedation was administered for the procedure. Total moderate sedation time was 60 minutes. Total Versed dosage was 3 mg and fentanyl dosage was 75 mcg. Start time was 1440 and end time was 1530. The patient tolerated the procedure well. Pulse oximeter and hemodynamic monitoring were performed throughout the procedure. CONCLUSION: 1. Successful implantation of a [place] scientific biventricular ICD in the left pectoral region. 2. Moderate sedation was administered. 3. No complications. MD JAVED An/MAGNUS /[id number] HARIS
--- NOTE | 2018-09-30 07:30 | NUR ---
Walking rounds done. Patient is up ambulating in room without any complaints voiced at this time. POC discussed. Patient instructed to call for assistance as needed and verbalized understanding. Call tillman within reach.
[2018-09-30] MEDS ORDERED: POTASSIUM CHLORIDE 10MEQ EA PO SCH (09:00)
[2018-09-30] MEDS ORDERED: TAMSULOSIN HCL 0.4 MG CAP PO SCH (09:00)
[2018-09-30] MEDS ORDERED: LISINOPRIL 2.5 MG TAB PO SCH (09:00)
[2018-09-30] MEDS ORDERED: ASPIRIN 325 MG TAB PO SCH (09:00)
[2018-09-30] MEDS ORDERED: FUROSEMIDE 20 MG TAB PO SCH (09:00)
[2018-09-30] MEDS ORDERED: METOPROLOL SUCCINATE 25 MG TAB XL PO SCH (09:00)
[2018-09-30] MEDS ORDERED: FUROSEMIDE 40 MG TAB PO SCH (09:00)
[2018-09-30 09:02] VITALS: BP 120/68
[2018-09-30] MEDS ORDERED: CARBAMAZEPINE 200 MG TAB PO SCH ×2 (10:00→22:00)
--- NOTE | 2018-09-30 10:03 | NUR ---
Patient refused AM medication wants to wait until he gets home to take own medications.
--- NOTE | 2018-09-30 10:45 | NUR ---
SOCIAL WORK INITIAL ASSESSMENT Inspector Eyeglass to bedside to discuss plan of care with patient/family. CM/SW role and care transitions discussed. Anticipated discharge plan discussed along with duration of care. CM/SW discussed patients right to make decisions in care. CM/SW work hours given. Patient lives: IN HOUSE WITH FAMILY Admit/Transfer: VIA ED POA/Emergency contact: VISH [phone] Current/Previous Home Health: NONE PCP/Follow-up Care: AMRITA Current/Previous DME: NONE Other Services: NONE Employment Status: RETIRED Areas of Concerns: NONE Referral Needs: NONE Education Needs: NONE IMM/ROD given and signed (if applicable): ROD Goal for discharge: RETURN HOME INDEPENDENTLY CM/SW left business card at the bedside with contact information. Name and number was also written on the patients whiteboard. Patient verbalized understanding of discussion. CM will follow-up with ongoing discharge and transition of care needs.
[2018-09-30] MEDS ORDERED: MINOCYCLINE HCL50 MG PO (11:24)
--- NOTE | 2018-09-30 11:55 | NUR ---
Patient discharge home with written instructions. Both patient and spouse verbalized understanding. IV dc'd, cath intact and small dressing applied with no bleeding noted. Patient wheeled to the front of hospital with all belongings.
[2018-09-30] MEDS ORDERED: SIMVASTATIN 40 MG TAB PO SCH (21:00)
[2018-09-30] MEDS ORDERED: ROPINIROLE HCL 1 MG TAB PO SCH (21:00)
[2018-09-30] MEDS ORDERED: BUSPIRONE HCL 5 MG TAB PO PRN (21:30)
[2018-10-05] MEDS ORDERED: METOLAZONE 5 MG TAB PO SCH (09:00)
== END 2018-09-30 11:55 | disposition home or self-care (01) ==
LOC: CATH LAB 11:05 → CATH LAB V 15:53 → IMCU 17:38
PROVIDERS: ADMIT Internal Medicine Clinical Cardiac Electrophysiology; ATTEND Internal Medicine Clinical Cardiac Electrophysiology
DX: I13.0 Hypertensive heart and chronic kidney disease with heart failure and stage 1 through stage 4 chronic kidney disease, or unspecified chronic kidney disease (principal); I50.22 Chronic systolic (congestive) heart failure; I25.10 Atherosclerotic heart disease of native coronary artery without angina pectoris; I44.7 Left bundle-branch block, unspecified; N18.9 Chronic kidney disease, unspecified; Z95.1 Presence of aortocoronary bypass graft; Z79.82 Long term (current) use of aspirin; Z01.810 Encounter for preprocedural cardiovascular examination; Z01.812 Encounter for preprocedural laboratory examination; Z01.811 Encounter for preprocedural respiratory examination
CPT/HCPCS: 33225; 33249; 36415; 71045; 80048; 85025; 85610; C1769; G0378 ×2; J0690; J2001; J2250; J2270; J2405; J7030; J7040

== ENCOUNTER 2019-09-28 10:05 | Inpatient (IN) | payer MEDICARE ==
[~2019-09-28] VITALS: Ht 172.7 cm; Wt 85.7 kg
[~2019-09-28 10:05] MED LIST changes: +MINOCYCLINE HCL50 MG PO
[2019-09-28] MEDS ORDERED: ASPIRIN 81 MG CHEW TAB PO ONE ×2 (10:15→12:30)
[2019-09-28 11:32] LABS: BASOPHILS % 0.3 % (0.0-1.0); EOSINOPHILS # (AUTO) 0.5 (0.0-0.4); EOSINOPHILS % 3.8 % (0.0-6.0); HEMATOCRIT 38.9 % (38.2-49.6); HEMOGLOBIN 12.6 g/dL (14.0-18.0); LYMPHOCYTES # (AUTO) 0.6 (1.0-3.2); LYMPHOCYTES % 4.4 % (18.0-39.1); MEAN CORPUSCULAR HEMOGLOBIN 30.4 pg (28-32); MEAN CORPUSCULAR HGB CONC 32.4 g/dL (31-35); MONOCYTES # (AUTO) 1.3 (0.2-0.8); MONOCYTES % 9.7 % (4.4-11.3); NEUTROPHILS # (AUTO) 11.1 (2.1-6.9); NEUTROPHILS % 81.4 % (38.7-80.0); PLATELET COUNT 219 x10e3/uL (140-360); RED BLOOD COUNT 4.14 x10e6/uL (4.3-5.7); RED CELL DISTRIBUTION WIDTH 14.8 % (11.7-14.4)
[2019-09-28 11:59] LABS: ALBUMIN 3.9 g/dL (3.5-5.0); ALBUMIN/GLOBULIN RATIO 1.1 (0.8-2.0); ANION GAP 15.7 mmol/L (8-16); CALCIUM 9.8 mg/dL (8.4-10.2); CREATININE, SERUM 1.38 mg/dL (0.72-1.25); POTASSIUM 3.7 mmol/L (3.5-5.1)
--- NOTE | 2019-09-28 12:07 | Diagnostic Imaging Report ---
Chest, PA and lateral. History: Dizziness, shortness of breath. Comparison: 09/29/2018. Pression: The heart is mildly enlarged. Patient is status post median sternotomy. Left subclavian AICD is in place. There is interstitial prominence which may be secondary to a component of edema. Bibasilar atelectasis is present. No focal consolidation. Sizable pleural effusion or pneumothorax. Signed by: Iván Hunter MD on 09/28/2019 12:04 PM
[2019-09-28 12:10] LABS: CREATINE KINASE MB 1.3 ng/mL (0-5.0)
--- NOTE | 2019-09-28 12:13 | Diagnostic Imaging Report ---
EXAMINATION: Head CT HISTORY: Dizzy. COMPARISON: None. TECHNIQUE: Multidetector axial images were obtained without contrast from the foramen magnum to the vertex . The images were reconstructed using brain and bone algorithms. Thin section brain images were reformatted into coronal and sagittal planes. Image quality: Motion/streaking artifact limits the evaluation of the skull base and posterior cranial fossa. Dose modulation, iterative reconstruction, and/or weight based adjustment of the mA/kV was utilized to reduce the radiation dose to as low as reasonably achievable. FINDINGS: Parenchyma: 1. Few scatter white matter hypodensities, most likely nonspecific chronic microvascular changes. Tiny peripheral calcification, likely vascular in nature. 2. No mass or hemorrhage. No CT evidence of acute territorial vascular insult. Extra-axial spaces:No abnormal density. No extra-axial fluid collections Brain volume: Normal for age. Ventricles: No hydrocephalus or displacement. Arteries: No density suggestive of thrombus. Dural sinuses: No abnormal density. Foramen magnum: No mass, Chiari malformation, or basilar invagination. Sella: No obvious mass. Paranasal/mastoid sinuses: Imaged portions unremarkable. Skull/Scalp: No lytic or blastic lesions. No fractures. IMPRESSION: 1. No acute abnormalities. 2. Mild chronic microvascular ischemic changes. Signed by: Dr. Ana Paula Kim M.D. on 09/28/2019 12:10 PM
[2019-09-28 12:17] LABS: BILIRUBIN,URINE NEGATIVE (NEGATIVE); CLARITY,URINE CLEAR (CLEAR); COLOR,URINE YELLOW (YELLOW); KETONES,URINE NEGATIVE (NEGATIVE); LEUKOCYTE ESTERASE ,URINE NEGATIVE (NEGATIVE); NITRITE,URINE NEGATIVE (NEGATIVE); PROTEIN,URINE DIPSTICK NEGATIVE (NEGATIVE); URINE UROBILINOGEN 0.2 mg/dL (0.2 - 1)
[2019-09-28] MEDS ORDERED: SODIUM CHLORIDE FLUSH 10 ML SYR INJ PRN (12:30)
[2019-09-28 12:33] LABS: BACTERIA,URINE FEW /HPF; EPITHELIAL CELLS,URINE FEW /LPF; RBC,URINE 0-5 /HPF (0-5)
[2019-09-28 18:10] LABS: CREATINE KINASE MB 1.2 ng/mL (0-5.0)
[2019-09-28] MEDS ORDERED: PROPRANOLOL HCL10 MG PO (19:38)
[2019-09-28] MEDS ORDERED: BACLOFEN10 MG PO (19:38)
[2019-09-28] MEDS ORDERED: PERCOGESIC 3251 EACH PO (19:40)
[2019-09-28] MEDS ORDERED: VITAMIN D35000 UNI2 PO (19:40)
--- NOTE | 2019-09-28 20:00 | NUR ---
PT IS TRANSFERRED FROM ER AOX3 PT HAS PACEMAKER ,AND TELE .RESPIRATIONS ARE EVEN AND UNLABORED .DENIES PAIN .CALL LIGHT WITH IN REACH .CONTINUE TO MONITOR
[2019-09-28] MEDS: FUROSEMIDE INJ 10 MG/ML 4 ML VIAL IV SCH (21:10)
[2019-09-29 00:01] VITALS: BP 117/77
[2019-09-29 00:16] VITALS: BP 117/77
--- NOTE | 2019-09-29 02:32 | Consultation ---
DATE OF CONSULTATION: 09/28/2019 Cardiology Consultation REQUESTING PHYSICIAN: David Fritz MD. REASON FOR CONSULTATION: Congestive heart failure. HISTORY OF PRESENT ILLNESS: This is a 69-year-old man with history of coronary artery disease, status post bypass; mitral valve replacement; chronic systolic heart failure, status post BiV ICD; hypertension; mild aortic stenosis; who presents with complaints of confusion and shortness of breath. The patient has been short of breath for the last 2 days with orthopnea and PND. indicates they noticed lower extremity edema today. Denied any chest pain or palpitations. In addition, the noted that he was disoriented this morning, having difficulties with word-finding. He was therefore brought to the ER for further evaluation. REVIEW OF SYSTEMS: Negative except as per HPI. PAST MEDICAL HISTORY: 1. Chronic systolic heart failure, status post BiV ICD. 2. Coronary artery disease, status post coronary artery bypass. 3. Mitral valve replacement, bioprosthetic. 4. Hypertension. PAST SURGICAL HISTORY: CABG and mitral valve replacement. ALLERGIES: PLEASE SEE EMR. MEDICATIONS: Please see medication list. SOCIAL HISTORY: Denies tobacco, alcohol, or illicit drugs. FAMILY HISTORY: Pertinent for father with myocardial infarction. PHYSICAL EXAMINATION: VITAL SIGNS: Temperature 97.8 degrees, pulse 83, respiratory rate 14, blood pressure 103/66, oxygen saturation 99%. GENERAL: Elderly man, in no acute distress. Well developed, well nourished. HEENT: Normocephalic and atraumatic. Pupils are equal. No scleral icterus. NECK: Supple. No thyromegaly or cervical lymphadenopathy. No carotid bruits. LUNGS: Clear to auscultation bilaterally. No wheeze or crackles. CARDIOVASCULAR: Normal rate, regular rhythm. Normal S1 and S2, 2/6 systolic murmur is appreciated at the upper sternal borders. ABDOMEN: Soft, nontender. EXTREMITIES: 2+ pitting edema in bilateral lower extremities. NEUROLOGIC: Nonfocal exam. SKIN: Dry and intact. LABORATORY DATA: WBC 13.59, hemoglobin 12.6, hematocrit 38.9, and platelets 219. Sodium 138, potassium 3.7, chloride 96, CO2 of 30, BUN 26, and creatinine 1.38. Troponin 0.027. BNP 405. Chest x-ray, mildly enlarged with interstitial prominence, which may be secondary to a component of edema. EKG, electronic ventricular pacemaker. IMPRESSION: 1. Ersks-us-luymgmv systolic heart failure. 2. Altered mental status. 3. Status post BiV ICD. 4. Coronary artery disease, status post bypass. 5. Mitral valve replacement, bioprosthetic. RECOMMENDATIONS: Agree with IV diuretics. Continue home cardiac medications otherwise. Monitor creatinine and replete electrolytes. Evaluation of altered mental status per Primary Service. Thank you for this consult. We will continue to follow. Minyd Nash MD ABS/MODL /[id number]
[2019-09-29 04:00] VITALS: BP 120/78
[2019-09-29] MEDS ORDERED: BUSPIRONE HCL 5 MG TAB PO PRN (05:15)
[2019-09-29] MEDS ORDERED: HYDROCODONE/APAP 10MG-325MG TAB PO PRN (05:15)
[2019-09-29] MEDS ORDERED: METOLAZONE 5 MG TAB PO SCH (05:15)
[2019-09-29] MEDS ORDERED: PROPRANOLOL HCL 10 MG TAB PO PRN (05:15)
[2019-09-29] MEDS: CARBAMAZEPINE 200 MG TAB PO SCH ×2 (05:38→09:21)
[2019-09-29 05:47] LABS: BASOPHILS % 0.3 % (0.0-1.0); EOSINOPHILS # (AUTO) 0.5 (0.0-0.4); EOSINOPHILS % 3.6 % (0.0-6.0); HEMATOCRIT 40.2 % (38.2-49.6); HEMOGLOBIN 13.4 g/dL (14.0-18.0); LYMPHOCYTES # (AUTO) 0.8 (1.0-3.2); LYMPHOCYTES % 5.3 % (18.0-39.1); MEAN CORPUSCULAR HEMOGLOBIN 30.5 pg (28-32); MEAN CORPUSCULAR HGB CONC 33.3 g/dL (31-35); MEAN CORPUSCULAR VOLUME 91.4 fL (81-99); MONOCYTES # (AUTO) 1.5 (0.2-0.8); NEUTROPHILS # (AUTO) 12.1 (2.1-6.9); NEUTROPHILS % 80.5 % (38.7-80.0); PLATELET COUNT 235 x10e3/uL (140-360); RED CELL DISTRIBUTION WIDTH 14.6 % (11.7-14.4)
--- NOTE | 2019-09-29 06:03 | NUR ---
D/C TELE PT RESTED DURING THE NIGHT .DENIES PAIN .DR CROWE HAS SEEN THE PT .PT MAY D/C TODAY .CALL LIGHT WITH IN REACH /.CONTINUE TO MONITOR
[2019-09-29 06:10] LABS: CREATINE KINASE MB 1.9 ng/mL (0-5.0)
--- NOTE | 2019-09-29 07:06 | NUR ---
BEDSIDE REPORT GIVEN TO THE ONCOMING NURSE
[2019-09-29 08:00] VITALS: BP 96/58
[2019-09-29] MEDS ORDERED: BACLOFEN 10 MG TAB PO SCH (08:00)
[2019-09-29 08:03] VITALS: BP 96/58
[2019-09-29 08:19] LABS: ANION GAP 20.2 mmol/L (8-16); CALCIUM 9.6 mg/dL (8.4-10.2); CREATININE, SERUM 1.28 mg/dL (0.72-1.25); POTASSIUM 3.2 mmol/L (3.5-5.1)
[2019-09-29] MEDS ORDERED: POTASSIUM CHLORIDE 10MEQ EA PO SCH (09:00)
[2019-09-29] MEDS ORDERED: ASPIRIN 325 MG TAB PO SCH (09:00)
[2019-09-29] MEDS ORDERED: METOPROLOL SUCCINATE 25 MG TAB XL PO SCH (09:00)
[2019-09-29] MEDS ORDERED: LISINOPRIL 2.5 MG TAB PO SCH (09:00)
[2019-09-29] MEDS ORDERED: TAMSULOSIN HCL 0.4 MG CAP PO SCH (09:00)
[2019-09-29] MEDS: FUROSEMIDE INJ 10 MG/ML 4 ML VIAL IV SCH (09:25)
--- NOTE | 2019-09-29 11:00 | NUR ---
Pt discharged with home at this time. Pt was given one time dose of potassium 40meq x1 one prior to discharged. 0 s/s of acute distress noted at time of discharge. Pt verbalized understanding of all discharge instructions and follow up appointment.
--- NOTE | 2019-09-29 12:01 | Progress Note ---
DATE: 09/29/2019 Cardiology Progress Note SUBJECTIVE: The patient denies chest pain. Reports his shortness of breath is better. OBJECTIVE: VITAL SIGNS: Temperature 97.8 degrees, pulse 98, respiratory rate 20, blood pressure 96/50, and oxygen saturation 94%. GENERAL: Elderly man, in no acute distress. Awake and alert. LUNGS: Clear to auscultation bilaterally. No wheezes or crackles. CARDIOVASCULAR: Normal rate. Regular rhythm. Normal S1 and S2. A 2/6 systolic murmur is appreciated at the upper sternal border. ABDOMEN: Soft and nontender. EXTREMITIES: Trace edema. CARDIAC MEDICATIONS: Lasix 40 mg IV q.12 hours, lisinopril 2.5 mg p.o. daily, metoprolol succinate 25 mg p.o. daily, aspirin 325 mg p.o. daily, and simvastatin 40 mg p.o. at bedtime. LABORATORY DATA: WBC 15.03, hemoglobin 13.4, hematocrit 40.2, and platelets 235. Sodium 136, potassium 3.2, chloride 97, CO2 22, BUN 27, and creatinine 1.28. IMPRESSION: 1. Nnsbz-bh-iiohxke systolic heart failure. 2. Altered mental status. 3. Status post BiV-ICD. 4. Coronary artery disease, status post bypass. 5. Mitral valve replacement, bioprosthetic. RECOMMENDATIONS: Continue IV diuretics while admitted. Continue current cardiac medications. Monitor and replete electrolytes. The patient has ruled out for myocardial infarction with serial cardiac biomarkers. Evaluation of altered mental status per primary service. Thank you for this consult. We will continue to follow. Mindy Nash MD ABS/MODL /[id number]
[2019-09-29] MEDS ORDERED: ROPINIROLE HCL 1 MG TAB PO SCH (21:00)
[2019-09-29] MEDS ORDERED: SIMVASTATIN 40 MG TAB PO SCH (21:00)
[2019-09-30] MEDS ORDERED: POTASSIUM CHLORIDE 20 MEQ TAB CR PO SCH (09:00)
--- NOTE | 2019-10-03 11:32 | Discharge Summary ---
DISCHARGE DIAGNOSES: Eelzk-ia-rcnzohv systolic heart failure, chronic kidney disease stage 3, coronary artery disease, acute metabolic encephalopathy. HISTORY OF PRESENT ILLNESS AND HOSPITAL COURSE: The patient is a gentleman with history of coronary artery disease, systolic heart failure, who presented with confusion and shortness of breath, where he has a slightly elevated BNP, who was given extra doses of diuretics with significant improvement of his output, which resulted in resolution of his encephalopathy as well as his symptoms of shortness of breath. The patient was very adamant. He wanted to be discharged following morning. Since he is back his baseline and he had followup appointment the following day with me, he was then discharged home with continuation of his home medication and he will see me the following day. He is to continue with his home medicines with no change. Please see hospital chart for full details. MD KARISHMA Darden/MAGNUS /[id number]
== END 2019-09-29 10:56 | disposition home or self-care (01) | DRG 291 ==
LOC: ER 10:05 → ERHOLD 10:12 → MED/SURG3 21:22
PROVIDERS: ADMIT Internal Medicine; ATTEND Internal Medicine
DX: I11.0 Hypertensive heart disease with heart failure (principal); G93.41 Metabolic encephalopathy; N28.9 Disorder of kidney and ureter, unspecified; I50.23 Acute on chronic systolic (congestive) heart failure; Z95.810 Presence of automatic (implantable) cardiac defibrillator; I25.10 Atherosclerotic heart disease of native coronary artery without angina pectoris; I13.0 Hypertensive heart and chronic kidney disease with heart failure and stage 1 through stage 4 chronic kidney disease, or unspecified chronic kidney disease; N18.3 Chronic kidney disease, stage 3 (moderate); D72.829 Elevated white blood cell count, unspecified; Z95.2 Presence of prosthetic heart valve; I35.0 Nonrheumatic aortic (valve) stenosis; Z95.1 Presence of aortocoronary bypass graft
CPT/HCPCS: 36415; 70450; 71046; 80048; 80053; 81001; 82550; 82553; 82948; 83880; 84484; 85025; 93005; 93306; 96374; 99284; J1940

== ENCOUNTER 2020-06-22 14:35 | Inpatient (IN) | payer MEDICARE, OTHER ==
[~2020-06-22] VITALS: Ht 172.7 cm; Wt 81.2 kg
[~2020-06-22 14:35] MED LIST changes: +PERCOGESIC 3251 EACH PO; +PROPRANOLOL HCL10 MG PO; +VITAMIN D35000 UNI2 PO
[2020-06-22] MEDS ORDERED: LACTATED RINGER'S 500 ML IV ONE ×2 (14:45→16:00)
[2020-06-22] MEDS ORDERED: LACTATED RINGER'S 1,000 ML ONE (14:51)
[2020-06-22 14:59] LABS: BASOPHILS # (AUTO) 0.1 (0.0-0.1); BASOPHILS % 0.4 % (0.0-1.0); EOSINOPHILS # (AUTO) 0.5 (0.0-0.4); EOSINOPHILS % 3.6 % (0.0-6.0); HEMATOCRIT 41.5 % (38.2-49.6); HEMOGLOBIN 13.1 g/dL (14.0-18.0); LYMPHOCYTES # (AUTO) 0.6 (1.0-3.2); LYMPHOCYTES % 5.1 % (18.0-39.1); MEAN CORPUSCULAR HEMOGLOBIN 29.8 pg (28-32); MEAN CORPUSCULAR HGB CONC 31.6 g/dL (31-35); MEAN CORPUSCULAR VOLUME 94.5 fL (81-99); MONOCYTES # (AUTO) 1.1 (0.2-0.8); MONOCYTES % 8.8 % (4.4-11.3); NEUTROPHILS # (AUTO) 10.2 (2.1-6.9); NEUTROPHILS % 81.6 % (38.7-80.0); PLATELET COUNT 213 x10e3/uL (140-360); RED BLOOD COUNT 4.39 x10e6/uL (4.3-5.7); RED CELL DISTRIBUTION WIDTH 16.6 % (11.7-14.4)
--- OUTSIDE RECORDS SUMMARY | 2020-06-22 14:59 | XMS REPORT | Continuity of Care Document ---
Author Author [facility] t Organization [facility] Address [address] [place] [address] Phone Unavailable Care Team Providers Care Lead Atg Developer Name Role Phone ROSEANN CROWE MD PCP YADIRA CHOU Attphys Unavailable CYNTHIA CARNES Attphys Unavailable ROSEANN CROWE Attphys Unavailable Yamilka CALDWELL Attphys Unavailable BEBA BRUNER Admphys Unavailable Problems Condition Name Condition Details Condition Category Status Onset Date Resolution Date Last Treatment Date Treating Clinician Comments Source Anemia Anemia Problem Active 2015-06-02 00:00:00 [facility] Congestive heart failure CHF (congestive heart failure) Problem Active 2015-03-22 00:00:00 [facility] Allergies, Adverse Reactions, Alerts This patient has no known allergies or adverse reactions. Medications Ordered Medication Name Filled Medication Name Start Date Stop Da te Current Medication? Ordering Clinician Indication Dosage Frequency Signature (SIG) Comments Components Source Acetaminophen/Diphenhydramine (Percogesic 325-12.5 Mg Tablet) 1 Each Tablet Acetaminophen/Diphenhydramine (Percogesic 325-12.5 Mg Tablet) 1 Each Tablet Yes 1 Bedtime [facility] Aspirin 325 Mg Tablet Aspirin 325 Mg Tablet Yes 325 Daily [facility] Baclofen 10 Mg Tablet Baclofen 10 Mg Tablet Yes 10 Three Times Daily With Meals [facility] Buspirone Hcl 5 Mg Tablet Buspirone Hcl 5 Mg Tablet Yes 5 Three Times A Day as needed for Anxiety [facility] Carbamazepine 200 Mg Tablet Carbamazepine 200 Mg Tablet Yes 200 Every 4 Hours [facility] Cholecalciferol (Vitamin D3) (Vitamin D3) 5,000 Unit C apsule Cholecalciferol (Vitamin D3) (Vitamin D3) 5,000 Unit Capsule Yes 1 Use As Directed [facility] Cholecalciferol (Vitamin D3) (Vitamin D3) 5,000 Unit T ab.rapdis Cholecalciferol (Vitamin D3) (Vitamin D3) 5,000 Unit Tab.rapdis Yes 1 Qweek [facility] Fluticasone Furoate Fluticasone Furoate Yes 2 As Needed as needed for Allergy [facility] Furosemide (Lasix) 40 Mg Tablet Furosemide (Lasix) 40 Mg Tablet Yes 40 Twice A Day [facility] Hydrocodone Bit/Acetaminophen (Vernon 10-325 Tablet) 1 Each Tablet Hydrocodone Bit/Acetaminophen (Vernon 10-325 Tablet) 1 Each Tablet Yes 1 Every 6 Hours as needed for Pain [facility] Lisinopril 2.5 Mg Tablet Lisinopril 2.5 Mg Tablet Yes 2.5 Daily [facility] Metolazone 5 Mg Tablet Metolazone 5 Mg Tablet Yes 5 Use As Directed [facility] Metoprolol Succinate 25 Mg Tab.er.24h Metoprolol Succinate 25 Mg Ta b.er.24h Yes 25 Daily [facility] Ondansetron Ondansetron Yes 4 Every 4 Hours as needed for Nausea [facility] Potassium Chloride 10 Meq Tab.er.prt Potassium Chloride 10 Meq Tab. er.prt Yes 10 Twice A Day [facility] Propranolol Hcl 10 Mg Tablet Propranolol Hcl 10 Mg Tablet Y es 10 Daily as needed for Muscle Spasms [facility] Ropinirole Hcl 1 Mg Tablet Ropinirole Hcl 1 Mg Tablet Yes 1 Bedtime [facility] Simvastatin 40 Mg Tablet Simvastatin 40 Mg Tablet Yes 40 Bedtime [facility] Tamsulosin Hcl 0.4 Mg Cap.er.24h Tamsulosin Hcl 0.4 Mg Cap.er.24h Yes .4 Daily [facility] Vitamin B12 Vitamin B12 Yes Use As Directed [facility] Minocycline Hcl 50 Mg Capsule, 100 Mg Oral Minocycline Hcl 50 Mg Capsule, 100 Mg Oral 2019-09-28 00:00:00 No 100 Twice A Day [facility] Metoprolol Tartrate 25 Mg Tablet, 25 Mg Oral Metoprolo l Tartrate 25 Mg Tablet, 25 Mg Oral 2018-09-26 00:00:00 No 25 Twice A Day [facility] Acetaminophen 650 Mg Supp, 650 Mg Oral Acetaminophen 650 Mg Supp , 650 Mg Oral 2017-12-22 00:00:00 No 650 As Needed [facility] Aspirin (Aspir 81) 81 Mg Tablet., 81 Mg Oral Aspirin (Aspir 81) 81 Mg Tablet., 81 Mg Oral 2017-12-22 00:00:00 No 81 Da sebastian [facility] Baclofen 10 Mg Tablet, 10 Mg Oral Baclofen 10 Mg Tablet, 10 Mg O ral 2017-12-22 00:00:00 No 10 Three Times A Day [facility] Carbamazepine 200 Mg Tablet, 200 Mg Oral Carbamazepine 200 Mg Tablet, 200 Mg Oral 2017-12-22 00:00:00 No 200 Three Times A Day [facility] Dicyclomine Hcl 10 Mg Capsule, 10 Mg Oral Dicyclomine Hcl 10 Mg Capsule, 10 Mg Oral 2017-12-22 00:00:00 No 10 Daily [facility] Hydrocodone Bit/Acetaminophen (Vernon 10-325 Tablet) 1 Each Tablet, 1 Tab Oral Hydrocodone Bit/Acetaminophen (Vernon 10-325 Tablet) 1 Each Tablet, 1 Tab Oral 2017-12-22 00:00:00 No 1 Every 6 Hours as nee ded for Pain [facility] Meloxicam 7.5 Mg Tablet, 15 Mg Oral Meloxicam 7.5 Mg Tablet, 15 Mg Oral 2017-12-22 00:00:00 No 15 Daily [facility] Metoprolol Tartrate 25 Mg Tablet, 12.5 Mg Oral Metopro lol Tartrate 25 Mg Tablet, 12.5 Mg Oral 2017-12-22 00:00:00 No 12.5 Twice A Day [facility] Warfarin Sodium 1 Mg Tablet, 1 Mg Oral Warfarin Sodium 1 Mg Tabl et, 1 Mg Oral 2017-12-22 00:00:00 No 1 Daily [facility] Ferrous Sulfate , 1 Tab Oral Ferrous Sulfate , 1 Tab Oral 2015-07-07 00:00:00 No 1 Daily [facility] Lorazepam 1 Mg Tablet, 1 Mg Oral Lorazepam 1 Mg Tablet, 1 Mg Ora l 2015-07-07 00:00:00 No 1 Bedtime as needed for Anxiety [facility] Nitroglycerin (Nitrostat) 0.4 Mg Tab.subl, 1 Tab Subli ngual Nitroglycerin (Nitrostat) 0.4 Mg Tab.subl, 1 Tab Sublingual 2015-07-07 00:00:00 No 1 Every 5 Minutes as needed for Chest Pain [facility] Simvastatin 40 Mg Tablet, 40 Mg Oral Simvastatin 40 Mg Tablet, 4 0 Mg Oral 2015-07-07 00:00:00 No 40 Today At 9:00PM [facility] Hydrocodone Bit/Acetaminophen (Vernon 10-325 Tablet) 1 Each Tablet, 1 Tab Oral Hydrocodone Bit/Acetaminophen (Vernon 10-325 Tablet) 1 Each Tablet, 1 Tab Oral 2015-06-02 00:00:00 No 1 Every 6 Hours as nee ded for Pain [facility] Lidocaine Hcl (Lidocaine Hcl 2% Abboject) 100 Mg/5 Ml Syr, Lidocaine Hcl (Lidocaine Hcl 2% Abboject) 100 Mg/5 Ml Syr, 2015-06-02 00:00:00 No As Needed [facility] Metoprolol Tartrate 50 Mg Tablet, 50 Mg Oral Metoprolo l Tartrate 50 Mg Tablet, 50 Mg Oral 2015-03-23 00:00:00 No 50 Twice A Day [facility] Warfarin Sodium 2 Mg Tablet, 2 Mg Oral Warfarin Sodium 2 Mg Tabl et, 2 Mg Oral 2015-03-23 00:00:00 No 2 Daily [facility] Procedures Procedure Date / Time Performed Performing Clinician [facility] e X-ray of chest, two views 2019-09-28 00:00:00 YADIRA CHOU CH I [facility] Computed tomography of brain without radiopaque contrast 00:00:00 YADIRA CHOU CHI [facility] Encounters Start Date/Time End Date/Time [facility] Encounter ID Source 2019-09-28 10:12:00 2019-09-29 10:56:00 Discharged Inpatient [address] [facility] [id number] [facility] 2018-09-29 15:53:00 2018-09-30 11:55:00 Discharged Inpatient (obs) [address] [facility] [id number] [facility] 2018-01-31 12:22:00 2018-01-31 12:22:00 Registered Clinic [address] [facility] [id number] [facility] 2017-12-22 20:03:00 2017-12-25 10:49:00 Discharged Inpatient [address] [facility] [id number] [facility] Results Test Description Test Time Test Comments Results Result Comments Source Sodium Level 2019-09-29 08:31:00 Test Item Sodium Level (test code = 2951-2) 136 136-145 [facility] Pimxu2333-16-18 08:31:00* Test Item Value Reference Range Interpretation Comments Potassium Level (test code = 2823-3) 3.2 3.5-5.1 L [facility]loride [id number] 08:31:00* Test Item Value Reference Range Interpretation Comments Chloride Level (test code = 2075-0) 97 98-107 L [facility] AustinCarbon Dioxide [id number] 08:31:00* Test Item Value Reference Range Interpretation Comments Carbon Dioxide Level (test code = 2028-9) 22 22-29 [facility]ion [id number] 08:31:00* Test Item Value Reference Range Interpretation Comments Anion Gap (test code = 03367-2) 20.2 8-16 H [facility] Urea [id number] 08:31:00* Test Item Value Reference Range Interpretation Comments Blood Urea Nitrogen (test code = 3094-0) 27 7-26 H [facility]inine2020-03-03 08:31:00* Test Item Value Reference Range Interpretation Comments Creatinine (test code = 2160-0) 1.28 0.72-1.25 H [facility] AustinBUN/Creatinine Vzqgt6959-50-30 08:31:00* Test Item Value Reference Range Interpretation Comments BUN/Creatinine Ratio (test code = 3097-3) 21 6-25 [facility] Glomerular Filtration Rate 2019-09-29 08:31:00* Test Item Value Reference Range Interpretation Comments Estimat Glomerular Filtration Rate (test code = 248701914) 55 >60 L Ranges were taken from the National Kidney Disease Education Program and the formerly [facility] Kidney Foundation literature.Reference ranges:60 or greater: Tyuiya37-47 ( for 3 consecutive months): Chronic kidney disease 15 or less: Kidney failureHeart Hospital of AustinGlucose Thypa4544-75-30 08:31:00* Test Item Value Reference Range Interpretation Comments Glucose Level (test code = BQF1671) 101 74-118 [facility]cium [id number] 08:31:00* Test Item Value Reference Range Interpretation Comments Calcium Level (test code = 48405-6) 9.6 8.4-10.2 [facility] Austin[facility]ine Svzngp7547-24-75 06:18:00* Test Item Value Reference Range Interpretation Comments Creatine Kinase (test code = 2157-6) 89 30-200 [facility] AustinCreatine Kinase [id number] 06:10:00* Test Item Value Reference Range Interpretation Comments Creatine Kinase MB (test code = 82851-2) 1.90 0-5.0 [facility] AustinTroponin [id number] 06:10:00* Test Item Value Reference Range Interpretation Comments Troponin I (test code = WPX4375) 0.031 0-0.300 [facility] AustinWhite Blood Updtx2830-64-36 05:50:00* Test Item Value Reference Range Interpretation Comments White Blood Count (test code = 6690-2) 15.03 4.8-10.8 H [facility] AustinRed Blood Wqujn5145-76-86 05:50:00* Test Item Value Reference Range Interpretation Comments Red Blood Count (test code = 789-8) 4.40 4.3-5.7 [facility]emoglobin2020-03-03 05:50:00* Test Item Value Reference Range Interpretation Comments Hemoglobin (test code = 71655-6) 13.4 14.0-18.0 L [facility] AustinHematocrit2020-03-03 05:50:00* Test Item Value Reference Range Interpretation Comments Hematocrit (test code = 4544-3) 40.2 38.2-49.6 [facility] AustinMean Corpuscular Fdxtyd8760-10-96 05:50:00* Test Item Value Reference Range Interpretation Comments Mean Corpuscular Volume (test code = 787-2) 91.4 81-99 [facility] AustinMean Corpuscular Vkasucfqoq0078-99-16 05:50:00* Test Item Value Reference Range Interpretation Comments Mean Corpuscular Hemoglobin (test code = 785-6) 30.5 28-32 [facility] AustinMean Corpuscular Hemoglobin Concent 2019-09-29 05:50:00* Test Item Value Reference Range Interpretation Comments Mean Corpuscular Hemoglobin Concent (test code = 786-4) 33.3 31-35 [facility] AustinRed Cell Distribution Fifkh2202-73-33 05:50:00* Test Item Value Reference Range Interpretation Comments Red Cell Distribution Width (test code = 37714-4) 14.6 11.7 -14.4 H [facility] AustinPlatelet Kimjp5089-89-65 05:50:00* Test Item Value Reference Range Interpretation Comments Platelet Count (test code = 777-3) 235 140-360 [facility] AustinNeutrophils (%) (Auto)2019-09-29 05:50:00 * Test Item Value Reference Range Interpretation Comments Neutrophils (%) (Auto) (test code = 36822-0) 80.5 38.7-80.0 H [facility] AustinLymphocytes (%) (Auto)2019-09-29 05:50:00 * Test Item Value Reference Range Interpretation Comments Lymphocytes (%) (Auto) (test code = 736-9) 5.3 18.0-39.1 L [facility] AustinMonocytes (%) (Auto)2019-09-29 05:50:00* Test Item Value Reference Range Interpretation Comments Monocytes (%) (Auto) (test code = 5905-5) 10.0 4.4-11.3 [facility]osinophils (%) (Auto)2019-09-29 05:50:00 * Test Item Value Reference Range Interpretation Comments Eosinophils (%) (Auto) (test code = 713-8) 3.6 0.0-6.0 [facility]Basophils (%) (Auto)2019-09-29 05:50:00* Test Item Value Reference Range Interpretation Comments Basophils (%) (Auto) (test code = 706-2) 0.3 0.0-1.0 [facility] AustinIM GRANULOCYTES %2019-09-29 05:50:00* Test Item Value Reference Range Interpretation Comments IM GRANULOCYTES % (test code = IM GRANULOCYTES %) 0.3 0.0- 1.0 [facility] AustinNeutrophils # (Auto)2019-09-29 05:50:00* Test Item Value Reference Range Interpretation Comments Neutrophils # (Auto) (test code = 751-8) 12.1 2.1-6.9 H [facility] AustinLymphocytes # (Auto)2019-09-29 05:50:00* Test Item Value Reference Range Interpretation Comments Lymphocytes # (Auto) (test code = 23676-9) 0.8 1.0-3.2 L [facility] AustinMonocytes # (Auto)2019-09-29 05:50:00* Test Item Value Reference Range Interpretation Comments Monocytes # (Auto) (test code = 742-7) 1.5 0.2-0.8 H [facility] AustinEosinophils # (Auto)2019-09-29 05:50:00* Test Item Value Reference Range Interpretation Comments Eosinophils # (Auto) (test code = 711-2) 0.5 0.0-0.4 H [facility] AustinBasophils # (Auto)2019-09-29 05:50:00* Test Item Value Reference Range Interpretation Comments Basophils # (Auto) (test code = 704-7) 0.0 0.0-0.1 [facility] AustinAbsolute Immature Granulocyte (auto 2019-09-29 05:50:00* Test Item Value Reference Range Interpretation Comments Absolute Immature Granulocyte (auto (dionicio t code = Absolute Immature Granulocyte (auto) 0.05 0-0.1 [facility] AustinUrine [id number] 12:34:00* Test Item Value Reference Range Interpretation Comments Urine WBC (test code = 5821-4) 6-10 0-5 H [facility] AustinUrine [id number] 12:34:00* Test Item Value Reference Range Interpretation Comments Urine RBC (test code = 09372-4) 0-5 0-5 [facility] AustinUrine Rxajctjm8324-22-64 12:34:00* Test Item Value Reference Range Interpretation Comments Urine Bacteria (test code = 27551-6) FEW NONE [facility] AustinUrine Epithelial Htxmc9696-47-76 12:34:00 * Test Item Value Reference Range Interpretation Comments Urine Epithelial Cells (test code = 78235-8) FEW NONE [facility] AustinUrine Scvng7062-36-66 12:18:00* Test Item Value Reference Range Interpretation Comments Urine Color (test code = 5778-6) YELLOW YELLOW [facility] AustinUrine Ogukzho0214-35-87 12:18:00* Test Item Value Reference Range Interpretation Comments Urine Clarity (test code = 07781-1) CLEAR CLEAR [facility] AustinU[facility] Specific Vtvamlv2785-25-46 12:18:00 * Test Item Value Reference Range Interpretation Comments Urine Specific [place] (test code = 5811-5) 1.010 1.010-1.02 5 [facility] AustinUrine [id number] 12:18:00* Test Item Value Reference Range Interpretation Comments Urine pH (test code = 95192-9) 7.5 5-7 [facility] Austin[facility] Leukocyte Siuwedil9967-72-32 12:18:00* Test Item Value Reference Range Interpretation Comments Urine Leukocyte Esterase (test code = 5799-2) NEGATIVE NEGATIVE [facility] AustinUrine Dxgnfrc1574-41-25 12:18:00* Test Item Value Reference Range Interpretation Comments Urine Nitrite (test code = 11713-7) NEGATIVE NEGATIVE [facility] AustinUrine Tjwgaqu9401-68-68 12:18:00* Test Item Value Reference Range Interpretation Comments Urine Protein (test code = 5804-0) NEGATIVE NEGATIVE [facility] AustinU[facility] Glucose (UA)2019-09-28 12:18:00* Test Item Value Reference Range Interpretation Comments Urine Glucose (UA) (test code = 2349-9) NEGATIVE NEGATIVE [facility] AustinUrine Hpslwvc7991-75-86 12:18:00* Test Item Value Reference Range Interpretation Comments Urine Ketones (test code = 92230-9) NEGATIVE NEGATIVE [facility] AustinUrine Vgafrugfrxyk2222-65-55 12:18:00* Test Item Value Reference Range Interpretation Comments Urine Urobilinogen (test code = 25676-5) 0.2 0.2-1 [facility] AustinUrine Ukfoknnhy3863-77-49 12:18:00* Test Item Value Reference Range Interpretation Comments Urine Bilirubin (test code = 1978-6) NEGATIVE NEGATIVE [facility] AustinUrine Jgigd8829-22-38 12:18:00* Test Item Value Reference Range Interpretation Comments Urine Blood (test code = 14044-1) NEGATIVE NEGATIVE [facility] AustinTotal Xjsloeutf5578-47-53 12:03:00* Test Item Value Reference Range Interpretation Comments Total Bilirubin (test code = 1975-2) 0.9 0.2-1.2 [facility] AustinAspartate Amino Transf (AST/SGOT) 2019-09-28 12:03:00* Test Item Value Reference Range Interpretation Comments Aspartate Amino Transf (AST/SGOT) (test code = Aspartate Amino Transf (AST/SGOT)) 26 5-34 [facility] AustinAlanine Aminotransferase (ALT/SGPT) 2019-09-28 12:03:00* Test Item Value Reference Range Interpretation Comments Alanine Aminotransferase (ALT/SGPT) (test code = 1742-6) 16 0-55 [facility] AustinTotal Wpkavvs6219-20-47 12:03:00* Test Item Value Reference Range Interpretation Comments Total Protein (test code = 2885-2) 7.6 6.5-8.1 [facility] AustinAlbumin2020-03-02 12:03:00* Test Item Value Reference Range Interpretation Comments Albumin (test code = 1751-7) 3.9 3.5-5.0 [facility] AustinGlobulin2020-03-02 12:03:00* Test Item Value Reference Range Interpretation Comments Globulin (test code = 92596-6) 3.7 2.3-3.5 H [facility] AustinAlbumin/Globulin Edcaf0344-06-18 12:03:00 * Test Item Value Reference Range Interpretation Comments Albumin/Globulin Ratio (test code = 1759-0) 1.1 0.8-2.0 [facility] AustinAlkaline Xrgmlijjgeb0434-61-22 12:03:00* Test Item Value Reference Range Interpretation Comments Alkaline Phosphatase (test code = 6768-6) 133 40-150 [facility] AustinB-Type Natriuretic Tepxiho8528-79-26 12:03:00* Test Item Value Reference Range Interpretation Comments B-Type Natriuretic Peptide (test code = 05950-0) 404.7 0-100 H [facility] AustinCT BRAIN [id number] 12:03:00 [facility] [address] [address] Patient Name: SIDNEY ALLEN JR MR #: [id number] : Age/Sex: 69/M Req #: [id number] Adm Physician: Ordered by: YADIRA CHOU DO Report #: [id number] Location: ER Room/Bed: Procedure: 0302-[address]/CT BRAIN WO Exam Date: 09/28/19 Exam Time: 1110 REPORT STATUS: Signed EXAMINATI ON: Head CT HISTORY: Dizzy. COMPARISON: None. TECHNIQUE: Multidetector axial images were obtained without contrast from the foramen magnum to the v ertex . The images were reconstructed using brain and bone algorithms. Thin s ection brain images were reformatted into coronal and sagittal planes. Image quality: Motion/streaking artifact limits the evaluation of the skull base and posterior cranial fossa. Dose modulation, iterative reconstruction, and/or w eight based adjustment of the mA/kV was utilized to reduce the radiation dose to as low as reasonably achievable. FINDINGS: Parenchyma: 1. Few scatter white matter hypodensities, most likely nonspecific chronic m icrovascular changes. Tiny peripheral calcification, likely vascular in nature . 2. No mass or hemorrhage. No CT evidence of acute territorial vascular insu lt. Extra-axial spaces:No abnormal density. No extra-axial flui d collections Brain volume: Normal for age. Ventricles: No hydro cephalus or displacement. Arteries: No density suggestive of thrombus. Dural sinuses: No abnormal density. Foramen magnum: No mass, Chi vanesa malformation, or basilar invagination. Sella: No obvious mass. Paranasal/mastoid sinuses: Imaged portions unremarkable. Skull/Scalp: No lytic or blastic lesions. No fractures. IMPRESSION: 1. No acute abnormalities. 2. Mild chronic microvascular ischemic changes. Signed by: Dr. Rosie Kim M.D. on 09/28/2019 12:10 PM Dictated By: ROSIE KIM MD 1210 Transcribed By: Raphael SANTACRUZ on 09/28/19 1210 COPY TO: YADIRA CHOU DO CHEST 2 VIEWS 2019-09-28 12:02:[address] [address] Patient Name: SIDNEY ALLEN JR MR #: [id number] : 1950 Age/Sex: 69/M Req #: [id number] Adm Physician: Ordered by: YADIRA CHOU DO Report #: [id number] Location: ER Room/Bed: Procedure: 0302-002 5 DX/CHEST 2 VIEWS Exam Date: 09/28/19 Exam Time: 11 45 REPORT STATUS: Signed Chest, PA and lateral. History: Dizziness, shortness of breath. Comparison: . Pression: The heart is mildly enlarged. Patient is status post m edian sternotomy. Left subclavian AICD is in place. There is interstitial prom inence which may be secondary to a component of edema. Bibasilar atelectasis i s present. No focal consolidation. Sizable pleural effusion or pneumothorax. Signed by: Iván Hernadez MD on 09/28/2019 12:04 PM Dictated By: MARLENY HERNADEZ MD 1204 Transcribed By: ALE on 09/28/19 1204 COPY TO: YADIRA CHOU DO CHEST SINGLE (PORTABLE)2018-09-29 16:38:[address] [address] Patient Name: SIDNEY ALLEN JR MR #: [id number] : 1950 Age/Sex: 68/M Req #: [id number] Adm Physician: Ordered by: CYNTHIA CARNES MD Report #: [id number] Location: DIETETIC TECHNICIAN Room/Bed: Procedure: [id number] 78 DX/CHEST SINGLE (PORTABLE) Exam Date: Exam Time: REPORT STATUS: Signed Examinat ion: Single AP view of the chest. COMPARISON: 01/31/2018 INDICATION: Sta tus post pacer DISCUSSION: Interval placement of a left subclavia n approach implantable cardiac device. The body projects over the left chest w all. Leads project over the expected regions of the right atrium, right ventri sly, and coronary sinus. No pneumothorax. Stable enlargement of the cardi ac silhouette with prominence of the pulmonary interstitium. Multiple median s ternotomy wires and mediastinal clips. No acute osseous abnormality. IMPR ESSION: Interval placement of a left subclavian approach implantable cardi ac device, positioned as above. No pneumothorax. Signed by: Dr. Chiquis witt M.D. on 09/29/2018 4:40 PM Dictated By: CHIQUIS SCOTT MD [facility] Signed By: CHIQUIS SCOTT MD on 09/29/18 1640 Transcribed By: ALE on 11/14 1640 COPY TO: CYNTHIA CARNES MD Prothrombin [id number] 11:34:00* Test Item Value Reference Range Interpretation Comments Prothrombin Time (test code = 5902-2) 13.2 11.9-14.5 [facility] AustinProthromb Time International Ratio 2018-09-26 11:34:00* Test Item Value Reference Range Interpretation Comments Prothromb Time International Ratio (test code = 6301-6) 0.92 Oral Anticoagulant Therapy INR Values:1. Low Intensity Therapy 1.5 - 2.02 . Moderate Intensity Therapy 2.0 - 3.03. High Intensity Therapy(1) 2.5 - 3. 54. High Intensity Therapy(2) 3.0 - 4.05. Panic Value INR > 5.0 [facility] Hbhnu7516-12-36 11:34:00* Test Item Value Reference Range Interpretation Comments Sodium Level (test code = 2951-2) 133 136-145 L [facility] AustinPotassium Nfqkt8215-96-90 11:34:00* Test Item Value Reference Range Interpretation Comments Potassium Level (test code = 2823-3) 4.1 3.5-5.1 [facility] AustinChloride Pjavr3056-19-59 11:34:00* Test Item Value Reference Range Interpretation Comments Chloride Level (test code = 2075-0) 92 98-107 L [facility] AustinCarbon Dioxide Tlgnc5507-70-50 11:34:00* Test Item Value Reference Range Interpretation Comments Carbon Dioxide Level (test code = 2028-9) 32 22-29 H [facility] AustinAnion [id number] 11:34:00* Test Item Value Reference Range Interpretation Comments Anion Gap (test code = 34277-6) 13.1 8-16 [facility] AustinBlood Urea Vqybpeky3814-72-95 11:34:00* Test Item Value Reference Range Interpretation Comments Blood Urea Nitrogen (test code = 3094-0) 28 7-26 H [facility] AustinCreatinine2019-03-01 11:34:00* Test Item Value Reference Range Interpretation Comments Creatinine (test code = 2160-0) 1.54 0.72-1.25 H [facility] AustinBUN/Creatinine Lbily3085-30-21 11:34:00* Test Item Value Reference Range Interpretation Comments BUN/Creatinine Ratio (test code = 3097-3) 18 6-25 [facility] AustinEstimat Glomerular Filtration Rate 2018-09-26 11:34:00* Test Item Value Reference Range Interpretation Comments Estimat Glomerular Filtration Rate (test code = 726203280) 45 >60 L Ranges were taken from the National Kidney Disease Education Program and the [facility] literature.Reference ranges:60 or greater: Otbqdi44-62 ( for 3 consecutive months): Chronic kidney disease 15 or less: Kidney failureHeart Hospital of AustinGlucose Utkmk1391-64-65 11:34:00* Test Item Value Reference Range Interpretation Comments Glucose Level (test code = UOM3949) 93 74-118 [facility] AustinCalcium Gjnzz6804-73-03 11:34:00* Test Item Value Reference Range Interpretation Comments Calcium Level (test code = 42464-3) 9.4 8.4-10.2 [facility] AustinWhite Blood Yvdgv4144-18-91 11:12:00* Test Item Value Reference Range Interpretation Comments White Blood Count (test code = 6690-2) 10.79 4.8-10.8 [facility] AustinRed Blood Pjugy0886-61-25 11:12:00* Test Item Value Reference Range Interpretation Comments Red Blood Count (test code = 789-8) 3.85 4.3-5.7 L [facility] AustinHemoglobin2019-03-01 11:12:00* Test Item Value Reference Range Interpretation Comments Hemoglobin (test code = 07415-3) 12.1 14.0-18.0 L [facility] AustinHematocrit2019-03-01 11:12:00* Test Item Value Reference Range Interpretation Comments Hematocrit (test code = 4544-3) 36.5 38.2-49.6 L [facility] AustinMean Corpuscular Kzvcej9888-56-38 11:12:00* Test Item Value Reference Range Interpretation Comments Mean Corpuscular Volume (test code = 787-2) 94.8 81-99 [facility] AustinMean Corpuscular Wefhlzgqtf4845-76-91 11:12:00* Test Item Value Reference Range Interpretation Comments Mean Corpuscular Hemoglobin (test code = 785-6) 31.4 28-32 [facility] AustinMean Corpuscular Hemoglobin Concent 2018-09-26 11:12:00* Test Item Value Reference Range Interpretation Comments Mean Corpuscular Hemoglobin Concent (test code = 786-4) 33.2 31-35 [facility] AustinRed Cell Distribution Ojogz3559-92-42 11:12:00* Test Item Value Reference Range Interpretation Comments Red Cell Distribution Width (test code = 78465-9) 13.6 11.7 -14.4 [facility] AustinPlatelet Syumv5972-35-72 11:12:00* Test Item Value Reference Range Interpretation Comments Platelet Count (test code = 777-3) 165 140-360 [facility] AustinNeutrophils (%) (Auto)2018-09-26 11:12:00 * Test Item Value Reference Range Interpretation Comments Neutrophils (%) (Auto) (test code = 31947-8) 82.9 38.7-80.0 H [facility] AustinLymphocytes (%) (Auto)2018-09-26 11:12:00 * Test Item Value Reference Range Interpretation Comments Lymphocytes (%) (Auto) (test code = 736-9) 4.8 18.0-39.1 L [facility] AustinMonocytes (%) (Auto)2018-09-26 11:12:00* Test Item Value Reference Range Interpretation Comments Monocytes (%) (Auto) (test code = 5905-5) 10.6 4.4-11.3 [facility] AustinEosinophils (%) (Auto)2018-09-26 11:12:00 * Test Item Value Reference Range Interpretation Comments Eosinophils (%) (Auto) (test code = 713-8) 0.9 0.0-6.0 [facility] AustinBasophils (%) (Auto)2018-09-26 11:12:00* Test Item Value Reference Range Interpretation Comments Basophils (%) (Auto) (test code = 706-2) 0.2 0.0-1.0 [facility] AustinIM GRANULOCYTES %2018-09-26 11:12:00* Test Item Value Reference Range Interpretation Comments IM GRANULOCYTES % (test code = IM GRANULOCYTES %) 0.6 0.0- 1.0 [facility] AustinNeutrophils # (Auto)2018-09-26 11:12:00* Test Item Value Reference Range Interpretation Comments Neutrophils # (Auto) (test code = 751-8) 9.0 2.1-6.9 H [facility] AustinLymphocytes # (Auto)2018-09-26 11:12:00* Test Item Value Reference Range Interpretation Comments Lymphocytes # (Auto) (test code = 22978-2) 0.5 1.0-3.2 L [facility] AustinMonocytes # (Auto)2018-09-26 11:12:00* Test Item Value Reference Range Interpretation Comments Monocytes # (Auto) (test code = 742-7) 1.1 0.2-0.8 H [facility] AustinEosinophils # (Auto)2018-09-26 11:12:00* Test Item Value Reference Range Interpretation Comments Eosinophils # (Auto) (test code = 711-2) 0.1 0.0-0.4 [facility] AustinBasophils # (Auto)2018-09-26 11:12:00* Test Item Value Reference Range Interpretation Comments Basophils # (Auto) (test code = 704-7) 0.0 0.0-0.1 [facility] AustinAbsolute Immature Granulocyte (auto 2018-09-26 11:12:00* Test Item Value Reference Range Interpretation Comments Absolute Immature Granulocyte (auto (dionicio t code = Absolute Immature Granulocyte (auto) 0.06 0-0.1 [facility] AustinCHES 2 MZFMT3707-45-98 13:43:00 [place] [address] Patient Name: SIDNEY ALLEN JR MR #: [id number] : 1950 Age/Sex: 67/M Req #: [id number] Adm Physician: Ordered by: ROSEANN CROWE MD Report #: [id number] Location: [facility] Room/Bed: Procedure: [id number] DX/CHEST 2 VIEWS Exam D ate: 01/31/18 Exam Time: 1300 REPORT STATUS: Si gned PROCEDURE: Frontal and lateral views of the chest. COMPARISON: C hest radiograph 12/23/1999 INDICATIONS: SOB FINDINGS: Lines/tubes : None. Lungs: The lungs are well inflated. Mild bilateral interstitial and airspace opacities. Pleura: There is no pleural effusion or pneum othorax. Heart and mediastinum: Median sternotomy wires and CABG clips. A ortic calcifications. The heart and the mediastinum are otherwise normal. Bones: No acute bony abnormality. IMPRESSION: Bilateral interstitial and airspace opacities which may suggest interstitial edema. Multifocal pne umonia may have a similar appearance. Dictated by: Theodore Mccallum on 01/31/2018 at 13:43 Electronically approved by: Carlos Quick M.D. on 01/31/2018 at 13:43 Dictated By: CARLOS QUICK MD Electron ically Signed By: CARLOS QUICK MD on 01/31/18 1343 Transcribed By: COLLEEN on 1343 COPY TO: ROSEANN CROWE MD Differential Total Cells Reomswv5424-37-64 07:59:00* Test Item Value Reference Range Interpretation Comments Differential Total Cells Counted (test code = Differmaty tial Total Cells Counted) 100 [facility] AustinNeutrophils % (Manual)2017-12-24 07:59:00 * Test Item Value Reference Range Interpretation Comments Neutrophils % (Manual) (test code = 90719-9) 80 40-74 H [facility] AustinLymphocytes % (Manual)2017-12-24 07:59:00 * Test Item Value Reference Range Interpretation Comments Lymphocytes % (Manual) (test code = 737-7) 3 19-48 L [facility] AustinMonocytes % (Manual)2017-12-24 07:59:00* Test Item Value Reference Range Interpretation Comments Monocytes % (Manual) (test code = 744-3) 12 3.4-9.0 H [facility] AustinEosinophils % (Manual)2017-12-24 07:59:00 * Test Item Value Reference Range Interpretation Comments Eosinophils % (Manual) (test code = 714-6) 3 0-7 [facility] AustinMyelocytes %2017-12-24 07:59:00* Test Item Value Reference Range Interpretation Comments Myelocytes % (test code = 749-2) 1 0-0 H [facility] AustinReactive Gwvhsbxpein4519-29-46 07:59:00* Test Item Value Reference Range Interpretation Comments Reactive Lymphocytes (test code = 06884-8) 1 [facility] AustinPlatelet Bhzjmwho2355-12-43 07:59:00* Test Item Value Reference Range Interpretation Comments Platelet Estimate (test code = 37195-2) ADEQUATE [facility] AustinPlatelet Morphology Kpcdjah7389-89-84 07:59:00* Test Item Value Reference Range Interpretation Comments Platelet Morphology Comment (test code = 15978-3) NORMAL [facility] AustinAnisocytosis2018-05-29 07:59:00* Test Item Value Reference Range Interpretation Comments Anisocytosis (test code = 702-1) SLIGHT [facility] AustinRed Cell Morphology Vbsuucy9846-55-58 07:59:00* Test Item Value Reference Range Interpretation Comments Red Cell Morphology Comment (test code = 6742-1) NORMAL [facility] AustinDifferential Total Cells Counted 2017-12-24 07:59:00* Test Item Value Reference Range Interpretation Comments Differential Total Cells Counted (test code = Differmaty tial Total Cells Counted) 100 [facility] AustinNeutrophils % (Manual)2017-12-24 07:59:00 * Test Item Value Reference Range Interpretation Comments Neutrophils % (Manual) (test code = 27058-7) 80 40-74 H [facility] AustinLymphocytes % (Manual)2017-12-24 07:59:00 * Test Item Value Reference Range Interpretation Comments Lymphocytes % (Manual) (test code = 737-7) 3 19-48 L [facility] AustinMonocytes % (Manual)2017-12-24 07:59:00* Test Item Value Reference Range Interpretation Comments Monocytes % (Manual) (test code = 744-3) 12 3.4-9.0 H [facility] AustinEosinophils % (Manual)2017-12-24 07:59:00 * Test Item Value Reference Range Interpretation Comments Eosinophils % (Manual) (test code = 714-6) 3 0-7 [facility] AustinMyelocytes %2017-12-24 07:59:00* Test Item Value Reference Range Interpretation Comments Myelocytes % (test code = 749-2) 1 0-0 H [facility] AustinReactive Okvfdoalevu5736-02-90 07:59:00* Test Item Value Reference Range Interpretation Comments Reactive Lymphocytes (test code = 13346-6) 1 [facility] AustinPlatelet Lbnbdaha2644-24-33 07:59:00* Test Item Value Reference Range Interpretation Comments Platelet Estimate (test code = 06852-1) ADEQUATE [facility] AustinPlatelet Morphology Yqtoxyl9593-81-30 07:59:00* Test Item Value Reference Range Interpretation Comments Platelet Morphology Comment (test code = 66893-5) NORMAL [facility] AustinAnisocytosis2018-05-29 07:59:00* Test Item Value Reference Range Interpretation Comments Anisocytosis (test code = 702-1) SLIGHT [facility] AustinRed Cell Morphology Qdybque4554-74-32 07:59:00* Test Item Value Reference Range Interpretation Comments Red Cell Morphology Comment (test code = 6742-1) NORMAL [facility] Oytoy2536-27-98 06:51:00* Test Item Value Reference Range Interpretation Comments Sodium Level (test code = 2951-2) 132 136-145 L [facility] AustinPotassium Ayhzt0321-26-82 06:51:00* Test Item Value Reference Range Interpretation Comments Potassium Level (test code = 2823-3) 3.1 3.5-5.1 L [facility] AustinChloride Tdrii2609-13-12 06:51:00* Test Item Value Reference Range Interpretation Comments Chloride Level (test code = 2075-0) 89 98-107 L [facility] AustinCarbon Dioxide Ceyyw3508-25-65 06:51:00* Test Item Value Reference Range Interpretation Comments Carbon Dioxide Level (test code = 2028-9) 30 22-29 H [facility] AustinAnion Uxb2147-40-64 06:51:00* Test Item Value Reference Range Interpretation Comments Anion Gap (test code = 47054-0) 16.1 8-16 H [facility] AustinBlood Urea Jfckpmiq8602-53-21 06:51:00* Test Item Value Reference Range Interpretation Comments Blood Urea Nitrogen (test code = 3094-0) 13 7-26 [facility] AustinCreatinine2018-05-29 06:51:00* Test Item Value Reference Range Interpretation Comments Creatinine (test code = 2160-0) 0.89 0.72-1.25 [facility] AustinBUN/Creatinine Rieft3954-44-21 06:51:00* Test Item Value Reference Range Interpretation Comments BUN/Creatinine Ratio (test code = 3097-3) 15 6- [facility] AustinEstimat Glomerular Filtration Rate 2017-12-24 06:51:00* Test Item Value Reference Range Interpretation Comments Estimat Glomerular Filtration Rate (test code = 33263-5) 60- >60 Ranges were taken from the National Kidney Disease Education Program and the [facility] literature.Reference ranges:60 or greater: Twnqkq75-36 ( for 3 consecutive months): Chronic kidney disease 15 or less: Kidney failureHeart Hospital of AustinGlucose Vrznw2366-22-23 06:51:00* Test Item Value Reference Range Interpretation Comments Glucose Level (test code = SSF2352) 96 74-118 [facility] AustinCalcium Zmwwc3297-35-43 06:51:00* Test Item Value Reference Range Interpretation Comments Calcium Level (test code = 46085-3) 9.6 8.4-10.2 [facility] AustinWhite Blood Klsja3512-24-92 06:40:00* Test Item Value Reference Range Interpretation Comments White Blood Count (test code = 6690-2) 14.32 4.8-10.8 H [facility] AustinRed Blood Hcrlm1723-95-04 06:40:00* Test Item Value Reference Range Interpretation Comments Red Blood Count (test code = 789-8) 3.76 4.3-5.7 L [facility] AustinHemoglobin2018-05-29 06:40:00* Test Item Value Reference Range Interpretation Comments Hemoglobin (test code = 61986-5) 11.6 14.0-18.0 L [facility] AustinHematocrit2018-05-29 06:40:00* Test Item Value Reference Range Interpretation Comments Hematocrit (test code = 4544-3) 34.9 38.2-49.6 L [facility] AustinMean Corpuscular Svsofm2612-41-51 06:40:00* Test Item Value Reference Range Interpretation Comments Mean Corpuscular Volume (test code = 787-2) 92.8 81-99 [facility] AustinMean Corpuscular Qgkbblvgkm4506-34-76 06:40:00* Test Item Value Reference Range Interpretation Comments Mean Corpuscular Hemoglobin (test code = 785-6) 30.9 28-32 [facility] AustinMean Corpuscular Hemoglobin Concent 2017-12-24 06:40:00* Test Item Value Reference Range Interpretation Comments Mean Corpuscular Hemoglobin Concent (test code = 786-4) 33.2 31-35 [facility] AustinRed Cell Distribution Mvyob7485-97-99 06:40:00* Test Item Value Reference Range Interpretation Comments Red Cell Distribution Width (test code = 00163-5) 13.4 11.7 -14.4 [facility] AustinPlatelet Qfuhz2998-71-91 06:40:00* Test Item Value Reference Range Interpretation Comments Platelet Count (test code = 777-3) 218 140-360 [facility] AustinNeutrophils (%) (Auto)2017-12-24 06:40:00 * Test Item Value Reference Range Interpretation Comments Neutrophils (%) (Auto) (test code = 59856-6) 80.4 38.7-80.0 H [facility] AustinLymphocytes (%) (Auto)2017-12-24 06:40:00 * Test Item Value Reference Range Interpretation Comments Lymphocytes (%) (Auto) (test code = 736-9) 5.3 18.0-39.1 L [facility] AustinMonocytes (%) (Auto)2017-12-24 06:40:00* Test Item Value Reference Range Interpretation Comments Monocytes (%) (Auto) (test code = 5905-5) 11.3 4.4-11.3 [facility] AustinEosinophils (%) (Auto)2017-12-24 06:40:00 * Test Item Value Reference Range Interpretation Comments Eosinophils (%) (Auto) (test code = 713-8) 2.1 0.0-6.0 [facility] AustinBasophils (%) (Auto)2017-12-24 06:40:00* Test Item Value Reference Range Interpretation Comments Basophils (%) (Auto) (test code = 706-2) 0.3 0.0-1.0 [facility] AustinIM GRANULOCYTES %2017-12-24 06:40:00* Test Item Value Reference Range Interpretation Comments IM GRANULOCYTES % (test code = IM GRANULOCYTES %) 0.6 0.0- 1.0 [facility] AustinNeutrophils # (Auto)2017-12-24 06:40:00* Test Item Value Reference Range Interpretation Comments Neutrophils # (Auto) (test code = 751-8) 11.5 2.1-6.9 H [facility] AustinLymphocytes # (Auto)2017-12-24 06:40:00* Test Item Value Reference Range Interpretation Comments Lymphocytes # (Auto) (test code = 43835-6) 0.8 1.0-3.2 L [facility] AustinMonocytes # (Auto)2017-12-24 06:40:00* Test Item Value Reference Range Interpretation Comments Monocytes # (Auto) (test code = 742-7) 1.6 0.2-0.8 H [facility] AustinEosinophils # (Auto)2017-12-24 06:40:00* Test Item Value Reference Range Interpretation Comments Eosinophils # (Auto) (test code = 711-2) 0.3 0.0-0.4 [facility] AustinBasophils # (Auto)2017-12-24 06:40:00* Test Item Value Reference Range Interpretation Comments Basophils # (Auto) (test code = 704-7) 0.0 0.0-0.1 [facility] AustinAbsolute Immature Granulocyte (auto 2017-12-24 06:40:00* Test Item Value Reference Range Interpretation Comments Absolute Immature Granulocyte (auto (dionicio t code = Absolute Immature Granulocyte (auto) 0.08 0-0.1 [facility] AustinCreatine Kinase [id number] 15:04:00* Test Item Value Reference Range Interpretation Comments Creatine Kinase MB (test code = 10041-1) 1.40 0-5.0 [facility] D2054-21-09 15:04:00* Test Item Value Reference Range Interpretation Comments Troponin I (test code = SRD9120) 0.044 0-0.300 [facility] AustinCreatine Kinase UC5106-28-90 15:04:00* Test Item Value Reference Range Interpretation Comments Creatine Kinase MB (test code = 08687-0) 1.40 0-5.0 [place] [id number] 15:04:00* Test Item Value Reference Range Interpretation Comments Troponin I (test code = WZC8271) 0.044 0-0.300 [facility] AustinCreatine Vmawvh7427-62-10 14:57:00* Test Item Value Reference Range Interpretation Comments Creatine Kinase (test code = 2157-6) 51 30-200 [facility] AustinCreatine Fwmmfc3520-94-27 14:57:00* Test Item Value Reference Range Interpretation Comments Creatine Kinase (test code = 2157-6) 51 30-200 [facility] AustinB-Type Natriuretic Mbnkbkl9426-48-22 20:03:00* Test Item Value Reference Range Interpretation Comments B-Type Natriuretic Peptide (test code = 40589-0) 318.3 0-100 H [facility] AustinThyroid Stimulating Hormone (TSH) 2017-12-22 20:03:00* Test Item Value Reference Range Interpretation Comments Thyroid Stimulating Hormone (TSH) (test code = 63273-5) 1.022 0.350-4.940 [facility] AustinB-Type Natriuretic Fujakkf7054-64-46 20:03:00* Test Item Value Reference Range Interpretation Comments B-Type Natriuretic Peptide (test code = 87557-7) 318.3 0-100 H [facility] AustinThyroid Stimulating Hormone (TSH) 2017-12-22 20:03:00* Test Item Value Reference Range Interpretation Comments Thyroid Stimulating Hormone (TSH) (test code = 23602-0) 1.022 0.350-4.940 [facility] Cwbezxuyw6718-22-63 19:33:00* Test Item Value Reference Range Interpretation Comments Total Bilirubin (test code = 1975-2) 1.7 0.2-1.2 H [facility] AustinAspartate Amino Transf (AST/SGOT) 2017-12-22 19:33:00* Test Item Value Reference Range Interpretation Comments Aspartate Amino Transf (AST/SGOT) (test code = Aspartate Amino Transf (AST/SGOT)) 32 5-34 [facility] AustinAlanine Aminotransferase (ALT/SGPT) 2017-12-22 19:33:00* Test Item Value Reference Range Interpretation Comments Alanine Aminotransferase (ALT/SGPT) (test code = 1742-6) 19 0-55 [facility] AustinTotal Minqxlt2672-77-98 19:33:00* Test Item Value Reference Range Interpretation Comments Total Protein (test code = 2885-2) 8.1 6.5-8.1 [facility] AustinAlbumin2018-05-27 19:33:00* Test Item Value Reference Range Interpretation Comments Albumin (test code = 1751-7) 3.9 3.5-5.0 [facility] AustinGlobulin2018-05-27 19:33:00* Test Item Value Reference Range Interpretation Comments Globulin (test code = 29501-5) 4.2 2.3-3.5 H [facility] AustinAlbumin/Globulin Snxpk0925-64-25 19:33:00 * Test Item Value Reference Range Interpretation Comments Albumin/Globulin Ratio (test code = 1759-0) 0.9 0.8-2.0 [facility] AustinAlkaline Yjwxnfabgks8977-24-85 19:33:00* Test Item Value Reference Range Interpretation Comments Alkaline Phosphatase (test code = 6768-6) 118 40-150 [facility] AustinTotal Fdvyjwwtp8905-04-94 19:33:00* Test Item Value Reference Range Interpretation Comments Total Bilirubin (test code = 1975-2) 1.7 0.2-1.2 H [facility] AustinAspartate Amino Transf (AST/SGOT) 2017-12-22 19:33:00* Test Item Value Reference Range Interpretation Comments Aspartate Amino Transf (AST/SGOT) (test code = Aspartate Amino Transf (AST/SGOT)) 32 5-34 [facility] AustinAlanine Aminotransferase (ALT/SGPT) 2017-12-22 19:33:00* Test Item Value Reference Range Interpretation Comments Alanine Aminotransferase (ALT/SGPT) (test code = 1742-6) 19 0-55 [facility] AustinT[facility] Xzvkqii4983-57-41 19:33:00* Test Item Value Reference Range Interpretation Comments Total Protein (test code = 2885-2) 8.1 6.5-8.1 [facility] AustinAlbumin2018-05-27 19:33:00* Test Item Value Reference Range Interpretation Comments Albumin (test code = 1751-7) 3.9 3.5-5.0 [facility] AustinGlobulin2018-05-27 19:33:00* Test Item Value Reference Range Interpretation Comments Globulin (test code = 10933-4) 4.2 2.3-3.5 H [facility] AustinAlbumin/Globulin Wukyp0593-86-37 19:33:00 * Test Item Value Reference Range Interpretation Comments Albumin/Globulin Ratio (test code = 1759-0) 0.9 0.8-2.0 [facility] AustinAlkaline Rwgaoylblax7097-38-09 19:33:00* Test Item Value Reference Range Interpretation Comments Alkaline Phosphatase (test code = 6768-6) 118 40-150 [facility] AustinArterial Blood [id number] 19:30:00* Test Item Value Reference Range Interpretation Comments Arterial Blood pH (test code = 2744-1) 7.62 7.31-7.41 H [facility] AustinArterial Blood Partial Pressure CO2 2017-12-22 19:30:00* Test Item Value Reference Range Interpretation Comments Arterial Blood Partial Pressure CO2 (test code = 2018-) 29 41-51 L [facility] AustinArterial Blood Partial Pressure O2 2017-12-22 19:30:00* Test Item Value Reference Range Interpretation Comments Arterial Blood Partial Pressure O2 (test code = 2019-02) 84 80-105 [facility] AustinArterial Blood LIB73930-40-55 19:30:00* Test Item Value Reference Range Interpretation Comments Arterial Blood HCO3 (test code = 1960-4) 30 23-28 [facility]ial Blood Base Eujirs1262-24-81 19:30:00* Test Item Value Reference Range Interpretation Comments Arterial Blood Base Excess (test code = 1925-7) 8.0 -2-3 H [facility] AustinArterial Blood Oxygen Saturation 2017-12-22 19:30:00* Test Item Value Reference Range Interpretation Comments Arterial Blood Oxygen Saturation (test code = 2708-6) 98.0 95-98 [facility] AustinFiO22018-05-27 19:30:00* Test Item Value Reference Range Interpretation Comments FiO2 (test code = FiO2) 28 [place] 2LHeart Hospital of AustinArterial Blood qM9057-87-72 19:30:00 * Test Item Value Reference Range Interpretation Comments Arterial Blood pH (test code = 2744-1) 7.62 7.31-7.41 H [facility] AustinArterial Blood Partial Pressure CO2 2017-12-22 19:30:00* Test Item Value Reference Range Interpretation Comments Arterial Blood Partial Pressure CO2 (test code = 2019-02) 29 41-51 L [facility] AustinArterial Blood Partial Pressure O2 2017-12-22 19:30:00* Test Item Value Reference Range Interpretation Comments Arterial Blood Partial Pressure O2 (test code = 2019-02) 84 80-105 [facility] AustinArterial Blood DWP67424-81-71 19:30:00* Test Item Value Reference Range Interpretation Comments Arterial Blood HCO3 (test code = 1960-4) 30 23-28 H [facility] AustinArterial Blood Base Wgcfuo4009-09-33 19:30:00* Test Item Value Reference Range Interpretation Comments Arterial Blood Base Excess (test code = 1925-7) 8.0 -2-3 H [facility] AustinArterial Blood Oxygen Saturation 2017-12-22 19:30:00* Test Item Value Reference Range Interpretation Comments Arterial Blood Oxygen Saturation (test code = 2708-6) 98.0 95-98 [facility] AustinFiO22018-05-27 19:30:00* Test Item Value Reference Range Interpretation Comments FiO2 (test code = FiO2) 28 [place] 2LHeart Hospital of AustinD-Dimer Quantitative (PE/DVT) 2017-12-22 19:27:00* Test Item Value Reference Range Interpretation Comments D-Dimer Quantitative (PE/DVT) (test code = 85115-1) 0.86 0. 00-0.45 H [facility] AustinD-Dimer Quantitative (PE/DVT)2017-12-22 19:27:00* Test Item Value Reference Range Interpretation Comments D-Dimer Quantitative (PE/DVT) (test code = 81060-4) 0.86 0. 00-0.45 H [facility] AustinProthrombin Irek5313-56-38 19:23:00* Test Item Value Reference Range Interpretation Comments Prothrombin Time (test code = 5902-2) 13.9 11.9-14.5 [facility] AustinProthromb Time International Ratio 2017-12-22 19:23:00* Test Item Value Reference Range Interpretation Comments Prothromb Time International Ratio (test code = 6301-6) 1.16 Oral Anticoagulant Therapy INR Values:1. Low Intensity Therapy 1.5 - 2.02 . Moderate Intensity Therapy 2.0 - 3.03. High Intensity Therapy(1) 2.5 - 3. 54. High Intensity Therapy(2) 3.0 - 4.05. Panic Value INR > 5.0 [facility] AustinActivated Partial Thromboplast Time 2017-12-22 19:23:00* Test Item Value Reference Range Interpretation Comments Activated Partial Thromboplast Time (test code = 97372-6) 42.6 23.8-35.5 [facility] 2017-12-22 19:23:00* Test Item Value Reference Range Interpretation Comments Activated Partial Thromboplast Time (test code = 90627-7) 42.6 23.8-35.5 [facility] [address] [address] Patient Name: SIDNEY ALLEN JR MR #: [id number] : 1950 Age/Sex: 67/M Req #: [id number] Adm Physician: Ordered by: BHARATH CALDWELL MD Report #: [id number] Location: ER Room/Bed: Procedure: [id number] DX/CHEST SINGLE (TRAVIS BLE) Exam Date: 12/22/17 Exam Time: 1914 T STATUS: Signed EXAM: CHEST SINGLE (PORTABLE), AP 1 view INDICATION: Short ness of breath, disoriented COMPARISON: None FINDINGS: LINES/TUBES: Non e LUNGS: Bilateral interstitial and airspace opacities. PLEURA: No ef fusions or pneumothorax. HEART AND MEDIASTINUM: Normal for technique. Media n sternotomy wires. BONES AND SOFT TISSUES: No acute findings. IMPRES YESY: Bilateral interstitial and airspace opacities. Findings suggest pulmonar y edema. Multifocal pneumonia can have a similar appearance. Signed by: Dr. Anay Tomas M.D. on 12/22/2017 7:46 PM Dictated By: ANAY TOMAS MD 45 Transcr ibed By: ALE on 12/22/171945 COPY TO: BHARATH CALDWELL MD
[2020-06-22] MEDS ORDERED: LACTATED RINGER'S 500 ML INJ ONE ×2 (15:00→16:00)
--- NOTE | 2020-06-22 15:01 | Emergency Department Note ---
History of Present Illnes History of Present Illness Chief Complaint: General Medicine Complaints History of Present Illness This is a 70 year old male Chief Complaint Comment PT FROM MD'S OFFICE WITH C/O HYPOTENSION. PER MD OFFICE, PT RECENTLY HAD BP MEDS CHANGED BY MICROWAVE ENGINEER. PER PT, BP WAS 60 SYSTOLIC AT HOME AND MD'S OFFICE REPORTS BP OF 60 WELL. Historian: Patient Arrival Mode: Car Glass Bead Maker Required: No Onset (how long ago): unknown Location: Generalized Quality: light headedness Radiation: Reports non-radiation Severity: moderate Onset quality: unable to specify Duration (how long): hour(s) Timing of current episode: constant Progression: worsening Chronicity: new Context: Denies recent illness, Denies recent surgery Relieving factors: none Exacerbating factors: none Associated symptoms: Reports denies other symptoms Treatments prior to arrival: none Past Medical/Family History Physician Review I have reviewed the patient's past medical and family history. Any updates have been documented here. Past Medical History Recent Fever: No Clinical Suspicion of Infectio: No New/Unexplained Change in Ment: No Past Medical History: Hypertension, CHF, Anxiety Other Medical History: TRIGEMINAL NEURALGIA HIGH CHOLESTEROL Past Surgical History: CABG Other Surgery: VALVE REPLACEMENT BONE MARROW BIOPSY Other Last Tetanus: UNK Review of Systems Review of Systems Constitutional: Reports as per HPI EENTM: Reports no symptoms Cardiovascular: Reports no symptoms Respiratory: Reports no symptoms Gastrointestinal: Reports no symptoms Genitourinary: Reports no symptoms Musculoskeletal: Reports no symptoms Integumentary: Reports no symptoms Neurological: Reports no symptoms Psychological: Reports no symptoms Endocrine: Reports no symptoms Hematological/Lymphatic: Reports no symptoms Physical Exam Related Data Allergies: Coded Allergies: No Known Allergies (Unverified , 04/16/15) Triage Vital Signs Vital Signs Date Time Temp Pulse Resp B/P (MAP) Pulse Ox O2 Delivery O2 Flow Rate FiO2 06/22/20 14:47 97.9 88 16 93/63 100 Room Air Vital signs reviewed: Yes Physical Exam CONSTITUTIONAL Constitutional: Present well-developed, Present well-nourished HENT HENT: Present normocephalic, Present atraumatic, Present oropharynx clear/moist, Present nose normal HENT L/R: Present left ext ear normal, Present right ext ear normal EYES Eyes: Reports PERRL, Reports conjunctivae normal NECK Neck: Present ROM normal PULMONARY Pulmonary: Present effort normal, Present breath sounds normal CARDIOVASCULAR Cardiovascular: Present regular rhythm, Present heart sounds normal, Present capillary refill normal, Present normal rate GASTROINTESTINAL Abdominal: Present soft, Present nontender, Present bowel sounds normal GENITOURINARY Genitourinary: Present exam deferred SKIN Skin: Present warm, Present dry MUSCULOSKELETAL Musculoskeletal: Present ROM normal NEUROLOGICAL Neurological: Present alert, Present oriented x 3, Present no gross motor or sensory deficits PSYCHOLOGICAL Psychological: Present mood/affect normal, Present judgement normal Results Laboratory Laboratory Laboratory Tests Test 06/22/20 14:43 Lab results reviewed: Yes Imaging Imaging results reviewed: Yes Diagnostics Tests Diagnostic test(s) reviewed: Yes Procedures 12 Lead ECG Interpretation ECG Interpretation : Glass Bead Maker: Interpreted by ED physician Date: Jun 22, 2020 Rhythm: paced Rate: normal Conduction: left bundle branch block ST segments normal: Yes T waves normal: Yes Clinical Impression: abnormal ECG Assessment & Plan Medical Decision Making MDM 70 y.o M presents for hypotension sent from clinic. Recently had BP meds changed but unsure as to which ones. He is urinating in bed at night as well. No other symptoms/pain. Exam shows BP 90/62. Given 500cc crystalloid. Will admit to Dr. Fritz for hypotension likely secondary to cardiac etiology or dehydration. Patient refused further fluids Reassessment Reassessment time: 15:00 Reassessment Given 500cc LR mi moderate increase in BP Assessment & Plan Final Impression: (1) Hypotension Depart Disposition: ADMITTED Last Vital Signs Date Time Temp Pulse Resp B/P (MAP) Pulse Ox O2 Delivery O2 Flow Rate FiO2 06/22/20 14:47 97.9 88 16 93/63 100 Room Air Home Meds Reported Medications Trazodone Hcl (TRAZODONE HCL) 50 Mg Tablet, 50 MG PO HS PRN for INSOMNIA, TAB 06/22/20 [place]-3 Fatty Acids/Fish Oil (FISH OIL 1,000 MG CAPSULE) 1 Each Capsule, DAILY 06/22/20 Montelukast Sodium (SINGULAIR) 10 Mg Tablet, 10 MG PO DAILY, #30 TAB 06/22/20 Allopurinol (ALLOPURINOL) 300 Mg Tablet, 300 MG PO DAILY, #30 TAB 06/22/20 Sacubitril/Valsartan (Entresto 24 mg-26 mg Tablet) 1 Each Tablet, 1 TAB PO BID 06/22/20 Cholecalciferol (Vitamin D3) (Vitamin D3) 5,000 Unit Tab.rapdis, 1 TAB PO QWEEK 09/28/19 Propranolol Hcl (PROPRANOLOL HCL) 10 Mg Tablet, 10 MG PO DAILY PRN for MUSCLE SPASMS, TAB 09/28/19 Metoprolol Succinate (METOPROLOL SUCCINATE) 25 Mg Tab.er.24h, 25 MG PO BID 09/26/18 Metolazone (METOLAZONE) 5 Mg Tablet, 5 MG PO UD, #30 TAB PATIENT TAKES ONE TABLET ONCE A WEEK 09/26/18 [Fluticasone Furoate] No Conflict Check, 2 INH IH PRN PRN for ALLERGY 09/26/18 [Vitamin B12] No Conflict Check, IM UD PATIENT TAKES INJECTION ONCE A WEEK 09/26/18 Hydrocodone Bit/Acetaminophen (NORCO 10-325 TABLET) 1 Each Tablet, 1 TAB PO Q6H PRN for PAIN 09/26/18 Simvastatin (SIMVASTATIN) 40 Mg Tablet, 40 MG PO HS, #30 TAB 12/22/17 Ropinirole Hcl (ROPINIROLE HCL) 1 Mg Tablet, 2 TAB PO HS, #30 TAB MAY REPEAT AT MN X1 NEEDED 12/22/17 Carbamazepine (CARBAMAZEPINE) 200 Mg Tablet, 200 MG PO Q4HR, #30 TAB 12/22/17 Aspirin (ASPIRIN) 325 Mg Tablet, 325 MG PO DAILY, #30 TAB 12/22/17 Furosemide (LASIX) 40 Mg Tablet, 40 MG PO BID, #30 TAB 03/22/15 Buspirone Hcl (BUSPIRONE HCL) 5 Mg Tablet, 5 MG PO BID PRN for ANXIETY, #60 TAB 03/22/15 Potassium Chloride (POTASSIUM CHLORIDE) 10 Meq Tab.er.prt, 10 MEQ PO BID, TAB 03/22/15 Discontinued Reported Medications Acetaminophen/Diphenhydramine (PERCOGESIC 325-12.5 MG TABLET) 1 Each Tablet, 1 TAB PO HS 09/28/19 Baclofen (BACLOFEN) 10 Mg Tablet, 10 MG PO TIDWM, #90 TAB 09/28/19 Tamsulosin Hcl (TAMSULOSIN HCL) 0.4 Mg Cap.er.24h, 0.4 MG PO DAILY 09/26/18 [Ondansetron] No Conflict Check, 4 MG PO Q4H PRN for NAUSEA 09/26/18 Cholecalciferol (Vitamin D3) (VITAMIN D3) 5,000 Unit Capsule, 1 CAP PO UD 09/26/18 Lisinopril (LISINOPRIL) 2.5 Mg Tablet, 2.5 MG PO DAILY, #30 TAB 12/25/17 Medications in the ED Lactated Ringer's 500 ml @ 0 mls/hr Q0M ONCE IV ; Start 06/22/20 at 14:45; Stop 06/22/20 at 14:48; Status DC Lactated Ringer's 1,000 ml @ ud STK-MED ONCE .ROUTE ; Start 06/22/20 at 14:51; Stop 06/22/20 at 14:44; Status DC Lactated Ringer's 500 ml @ 0 mls/hr Q0M ONCE INJ ; Start 06/22/20 at 15:00; Stop 06/22/20 at 15:01 DIMITRIOS ZHANG MD Jun 22, 2020 15:00
[2020-06-22 15:14] LABS: ALBUMIN 3.9 g/dL (3.5-5.0); ALBUMIN/GLOBULIN RATIO 0.9 (0.8-2.0); ANION GAP 19.5 mmol/L (8-16); CALCIUM 9.3 mg/dL (8.4-10.2); CREATININE, SERUM 2.79 mg/dL (0.72-1.25); POTASSIUM 4.5 mmol/L (3.5-5.1)
--- NOTE | 2020-06-22 15:21 | Diagnostic Imaging Report ---
EXAMINATION: CHEST SINGLE (PORTABLE) INDICATION: Chest pain COMPARISON: Chest radiograph of 09/28/2019 FINDINGS: LINES/TUBES:EKG leads overlie the chest. Left chest AICD. LUNGS:The lungs are moderately inflated. Mildly increased bilateral lower lung predominant interstitial opacities. PLEURA:No pleural effusion or pneumothorax. MEDIASTINUM:The cardiomediastinal silhouette appears normal in size and shape. Atherosclerotic calcifications of the thoracic aorta. BONES/SOFT TISSUES:No acute osseous injury. Sternotomy wires in place. ABDOMEN:No free air under the diaphragm. IMPRESSION: Mildly increased bilateral lower lung predominant interstitial opacities, not significantly changed from 09/28/2019. Signed by: Leonardo Sandoval MD on 06/22/2020 3:18 PM
[2020-06-22] MEDS ORDERED: ENTRESTO 24 MG1 EACH PO (15:28)
[2020-06-22 15:35] LABS: BILIRUBIN,URINE NEGATIVE (NEGATIVE); CLARITY,URINE SL CLOUDY (CLEAR); COLOR,URINE AMBER (YELLOW); KETONES,URINE NEGATIVE (NEGATIVE); LEUKOCYTE ESTERASE ,URINE NEGATIVE (NEGATIVE); NITRITE,URINE NEGATIVE (NEGATIVE); PROTEIN,URINE DIPSTICK NEGATIVE (NEGATIVE); URINE UROBILINOGEN 2 mg/dL (0.2 - 1)
[2020-06-22] MEDS ORDERED: FISH OIL 1,0001 EAC2 (15:35)
[2020-06-22] MEDS ORDERED: SINGULAIR10 MG PO (15:35)
[2020-06-22] MEDS ORDERED: ALLOPURINOL300 MG PO (15:35)
[2020-06-22] MEDS ORDERED: TRAZODONE HCL50 MG PO (15:39)
[2020-06-22 15:47] LABS: BACTERIA,URINE MANY /HPF; EPITHELIAL CELLS,URINE RARE /LPF
--- OUTSIDE RECORDS SUMMARY | 2020-06-22 15:54 | XMS REPORT | Continuity of Care Document ---
Author Author [facility] t Organization [facility] Address [address] [place] [address] Phone Unavailable Care Team Providers Care Body Press Operator Name Role Phone ROSEANN CROWE MD PCP Aureliano Chapa Attphys Unavailable YADIRA CHOU Attphys Unavailable CYNTHIA CARNES Attphys Unavailable ROSEANN CROWE Attphys Unavailable Yamilka CALDWELL Attphys Unavailable BEBA BRUNER Admphys Unavailable Problems Condition Name Condition Details Condition Category Status Onset Date Resolution Date Last Treatment Date Treating Clinician Comments Source Anemia Anemia Problem Active 2015-06-02 00:00:00 [facility] Congestive heart failure CHF (congestive heart failure) Problem Active 2015-03-22 00:00:00 [facility] Allergies, Adverse Reactions, Alerts This patient has no known allergies or adverse reactions. Medications Ordered Medication Name Filled Medication Name Start Date Stop Da te Current Medication? Ordering Clinician Indication Dosage Frequency Signature (SIG) Comments Components Source Acetaminophen/Diphenhydramine (Percogesic 325-12.5 Mg Tablet) 1 Each Tablet Acetaminophen/Diphenhydramine (Percogesic 325-12.5 Mg Tablet) 1 Each Tablet Yes 1 Bedtime [facility] Aspirin 325 Mg Tablet Aspirin 325 Mg Tablet Yes 325 Daily [facility] Baclofen 10 Mg Tablet Baclofen 10 Mg Tablet Yes 10 Three Times Daily With Meals [facility] Buspirone Hcl 5 Mg Tablet Buspirone Hcl 5 Mg Tablet Yes 5 Three Times A Day as needed for Anxiety [facility] Carbamazepine 200 Mg Tablet Carbamazepine 200 Mg Tablet Yes 200 Every 4 Hours [facility] Cholecalciferol (Vitamin D3) (Vitamin D3) 5,000 Unit C apsule Cholecalciferol (Vitamin D3) (Vitamin D3) 5,000 Unit Capsule Yes 1 Use As Directed [facility] Cholecalciferol (Vitamin D3) (Vitamin D3) 5,000 Unit T ab.rapdis Cholecalciferol (Vitamin D3) (Vitamin D3) 5,000 Unit Tab.rapdis Yes 1 Qweek [facility] Fluticasone Furoate Fluticasone Furoate Yes 2 As Needed as needed for Allergy [facility] Furosemide (Lasix) 40 Mg Tablet Furosemide (Lasix) 40 Mg Tablet Yes 40 Twice A Day [facility] Hydrocodone Bit/Acetaminophen ([place] 10-325 Tablet) 1 Each Tablet Hydrocodone Bit/Acetaminophen ([place] 10-325 Tablet) 1 Each Tablet Yes 1 Every 6 Hours as needed for Pain [facility] Lisinopril 2.5 Mg Tablet Lisinopril 2.5 Mg Tablet Yes 2.5 Daily [facility] Metolazone 5 Mg Tablet Metolazone 5 Mg Tablet Yes 5 Use As Directed [facility] Metoprolol Succinate 25 Mg Tab.er.24h Metoprolol Succinate 25 Mg Ta b.er.24h Yes 25 Daily [facility] Ondansetron Ondansetron Yes 4 Every 4 Hours as needed for Nausea [facility] Potassium Chloride 10 Meq Tab.er.prt Potassium Chloride 10 Meq Tab. er.prt Yes 10 Twice A Day [facility] Propranolol Hcl 10 Mg Tablet Propranolol Hcl 10 Mg Tablet Y es 10 Daily as needed for Muscle Spasms [facility] Ropinirole Hcl 1 Mg Tablet Ropinirole Hcl 1 Mg Tablet Yes 1 Bedtime [facility] Simvastatin 40 Mg Tablet Simvastatin 40 Mg Tablet Yes 40 Bedtime [facility] Tamsulosin Hcl 0.4 Mg Cap.er.24h Tamsulosin Hcl 0.4 Mg Cap.er.24h Yes .4 Daily [facility] Vitamin B12 Vitamin B12 Yes Use As Directed [facility] Minocycline Hcl 50 Mg Capsule, 100 Mg Oral Minocycline Hcl 50 Mg Capsule, 100 Mg Oral 2019-09-28 00:00:00 No 100 Twice A Day [facility] Metoprolol Tartrate 25 Mg Tablet, 25 Mg Oral Metoprolo l Tartrate 25 Mg Tablet, 25 Mg Oral 2018-09-26 00:00:00 No 25 Twice A Day [facility] Acetaminophen 650 Mg Supp, 650 Mg Oral Acetaminophen 650 Mg Supp , 650 Mg Oral 2017-12-22 00:00:00 No 650 As Needed [facility] Aspirin (Aspir 81) 81 Mg Tablet., 81 Mg Oral Aspirin (Aspir 81) 81 Mg Tablet., 81 Mg Oral 2017-12-22 00:00:00 No 81 Da sebastian [facility] Baclofen 10 Mg Tablet, 10 Mg Oral Baclofen 10 Mg Tablet, 10 Mg O ral 2017-12-22 00:00:00 No 10 Three Times A Day [facility] Carbamazepine 200 Mg Tablet, 200 Mg Oral Carbamazepine 200 Mg Tablet, 200 Mg Oral 2017-12-22 00:00:00 No 200 Three Times A Day [facility] Dicyclomine Hcl 10 Mg Capsule, 10 Mg Oral Dicyclomine Hcl 10 Mg Capsule, 10 Mg Oral 2017-12-22 00:00:00 No 10 Daily [facility] Hydrocodone Bit/Acetaminophen ([place] 10-325 Tablet) 1 Each Tablet, 1 Tab Oral Hydrocodone Bit/Acetaminophen ([place] 10-325 Tablet) 1 Each Tablet, 1 Tab Oral 2017-12-22 00:00:00 No 1 Every 6 Hours as nee ded for Pain [facility] Meloxicam 7.5 Mg Tablet, 15 Mg Oral Meloxicam 7.5 Mg Tablet, 15 Mg Oral 2017-12-22 00:00:00 No 15 Daily [facility] Metoprolol Tartrate 25 Mg Tablet, 12.5 Mg Oral Metopro lol Tartrate 25 Mg Tablet, 12.5 Mg Oral 2017-12-22 00:00:00 No 12.5 Twice A Day [facility] Warfarin Sodium 1 Mg Tablet, 1 Mg Oral Warfarin Sodium 1 Mg Tabl et, 1 Mg Oral 2017-12-22 00:00:00 No 1 Daily [facility] Ferrous Sulfate , 1 Tab Oral Ferrous Sulfate , 1 Tab Oral 2015-07-07 00:00:00 No 1 Daily [facility] Lorazepam 1 Mg Tablet, 1 Mg Oral Lorazepam 1 Mg Tablet, 1 Mg Ora l 2015-07-07 00:00:00 No 1 Bedtime as needed for Anxiety [facility] Nitroglycerin (Nitrostat) 0.4 Mg Tab.subl, 1 Tab Subli ngual Nitroglycerin (Nitrostat) 0.4 Mg Tab.subl, 1 Tab Sublingual 2015-07-07 00:00:00 No 1 Every 5 Minutes as needed for Chest Pain [facility] Simvastatin 40 Mg Tablet, 40 Mg Oral Simvastatin 40 Mg Tablet, 4 0 Mg Oral 2015-07-07 00:00:00 No 40 Today At 9:00PM [facility] Hydrocodone Bit/Acetaminophen ([place] 10-325 Tablet) 1 Each Tablet, 1 Tab Oral Hydrocodone Bit/Acetaminophen ([place] 10-325 Tablet) 1 Each Tablet, 1 Tab Oral 2015-06-02 00:00:00 No 1 Every 6 Hours as nee ded for Pain [facility] Lidocaine Hcl (Lidocaine Hcl 2% Abboject) 100 Mg/5 Ml Syr, Lidocaine Hcl (Lidocaine Hcl 2% Abboject) 100 Mg/5 Ml Syr, 2015-06-02 00:00:00 No As Needed [facility] Metoprolol Tartrate 50 Mg Tablet, 50 Mg Oral Metoprolo l Tartrate 50 Mg Tablet, 50 Mg Oral 2015-03-23 00:00:00 No 50 Twice A Day [facility] Warfarin Sodium 2 Mg Tablet, 2 Mg Oral Warfarin Sodium 2 Mg Tabl et, 2 Mg Oral 2015-03-23 00:00:00 No 2 Daily [facility] Procedures Procedure Date / Time Performed Performing Clinician [facility] e X-ray of chest, two views 2019-09-28 00:00:00 YADIRA CHOU CH I [facility] Computed tomography of brain without radiopaque contrast 00:00:[address] [facility] Encounters Start Date/Time End Date/Time Encounter [facility] ID Source 2019-09-28 10:12:00 2019-09-29 10:56:00 Discharged Inpatient 1 YADIRA CHOU [facility] [id number] [facility] 2018-09-29 15:53:00 2018-09-30 11:55:00 Discharged Inpatient (obs) 3 CYNTHIA CARNES [facility] [id number] [facility] 2018-01-31 12:22:00 2018-01-31 12:22:00 Registered Clinic 3 ROSEANN CROWE [facility] [id number] [facility] 2017-12-22 20:03:00 2017-12-25 10:49:00 Discharged Inpatient 1 BHARATH CALDWELL [facility] [id number] [facility] Results Test Description Test Time Test Comments Results Result Comments Source CHEST SINGLE (PORTABLE) 2020-06-22 15:16:00 [facility] : 1950 Sex: [place] [address] Patient Name: SIDNEY ALLEN JR MR #: [id number] : 1950 Age/Sex: 70/M Req #: [id number] Adm Physician: Ordered by: Dimitrios Chapa MD Report #: [id number] Location: ER Room/Bed: Procedure: [id number] DX/CHEST SINGLE (PORTABLE) Exam Date: 06/22/20 Exam Time: 1456 REPORT STATUS: Signed EXAMINATION: CHEST SINGLE (PORT ABLE) INDICATION: Chest pain COMPARISON: Chest radiograph of 09/28/2019 FINDINGS: LINES/TUBES:EKG leads overlie the chest. Left chest AICD. LUNGS:The lungs are moderately inflated. Mildly increased bilateral lower lung predominant interstitial opacities. PLEURA:No pleural effusion or pneumothorax. MEDIASTINUM:The cardiomediastinal silhouette appears normal in size and shape. Atherosclerotic calcifications of the thoracic aorta. BONES/SOFT TISSUES:No acute osseous injury. Sternotomy wires in place. ABDOMEN:No free air under the diaphragm. IMPRESSION: Mildly increased bilateral lower lung predominant interstitial opacities, not significantly changed from 09/28/2019. Signed by: Pradip Yee MD on 06/22/2020 3:18 PM Dictated By: PRADIP YEE MD 17 Transcribed By: ALE on 06/22/201517 COPY TO: DIMITRIOS CHAPA MD Sodium Level 2019-09-29 08:31:00 Test Item Sodium Level (test code = 2951-2) 136 136-145 [facility]Pot[facility] Bwpyc2775-62-12 08:31:00* Test Item Value Reference Range Interpretation Comments Potassium Level (test code = 2823-3) 3.2 3.5-5.1 L [facility] CenterChloride Okhge4157-32-01 08:31:00* Test Item Value Reference Range Interpretation Comments Chloride Level (test code = 2075-0) 97 98-107 L [facility] CenterCarbon Dioxide Mbizf6704-91-43 08:31:00* Test Item Value Reference Range Interpretation Comments Carbon Dioxide Level (test code = 2028-9) 22 22-29 [facility] CenterAnion [id number] 08:31:00* Test Item Value Reference Range Interpretation Comments Anion Gap (test code = 50210-3) 20.2 8-16 H [facility] CenterBlood Urea Sybsjakz4180-46-68 08:31:00* Test Item Value Reference Range Interpretation Comments Blood Urea Nitrogen (test code = 3094-0) 27 7-26 H [facility] CenterCreatinine2020-03-03 08:31:00* Test Item Value Reference Range Interpretation Comments Creatinine (test code = 2160-0) 1.28 0.72-1.25 H [facility] CenterBUN/Creatinine Pkhpz2890-13-81 08:31:00* Test Item Value Reference Range Interpretation Comments BUN/Creatinine Ratio (test code = 3097-3) 21 6-25 [facility] CenterEstimat Glomerular Filtration Rate 2019-09-29 08:31:00* Test Item Value Reference Range Interpretation Comments Estimat Glomerular Filtration Rate (test code = 874108790) 55 >60 L Ranges were taken from the National Kidney Disease Education Program and the [facility] literature.Reference ranges:60 or greater: Bhzujd78-56 ( for 3 consecutive months): Chronic kidney disease 15 or less: Kidney failureBig Bend Regional Medical CenterGlucose Riaxl5058-41-01 08:31:00* Test Item Value Reference Range Interpretation Comments Glucose Level (test code = EZN2698) 101 74-118 [facility] CenterCalcium Roise4921-99-40 08:31:00* Test Item Value Reference Range Interpretation Comments Calcium Level (test code = 52653-0) 9.6 8.4-10.2 [facility] CenterCreatine Igjvvm0348-37-93 06:18:00* Test Item Value Reference Range Interpretation Comments Creatine Kinase (test code = 2157-6) 89 30-200 [facility] CenterCreatine Kinase XF0725-11-31 06:10:00* Test Item Value Reference Range Interpretation Comments Creatine Kinase MB (test code = 54845-8) 1.90 0-5.0 [facility] CenterTroponin [id number] 06:10:00* Test Item Value Reference Range Interpretation Comments Troponin I (test code = PEM1982) 0.031 0-0.300 [facility] CenterWhite Blood Zgoqn8762-52-88 05:50:00* Test Item Value Reference Range Interpretation Comments White Blood Count (test code = 6690-2) 15.03 4.8-10.8 H [facility] CenterRed Blood Gzafp2475-16-26 05:50:00* Test Item Value Reference Range Interpretation Comments Red Blood Count (test code = 789-8) 4.40 4.3-5.7 [facility] CenterHemoglobin2020-03-03 05:50:00* Test Item Value Reference Range Interpretation Comments Hemoglobin (test code = 65697-9) 13.4 14.0-18.0 L [facility] CenterHematocrit2020-03-03 05:50:00* Test Item Value Reference Range Interpretation Comments Hematocrit (test code = 4544-3) 40.2 38.2-49.6 [facility] CenterMean Corpuscular Xczgfd7847-29-15 05:50:00* Test Item Value Reference Range Interpretation Comments Mean Corpuscular Volume (test code = 787-2) 91.4 81-99 [facility] CenterMean Corpuscular Gofsempspc6269-85-81 05:50:00* Test Item Value Reference Range Interpretation Comments Mean Corpuscular Hemoglobin (test code = 785-6) 30.5 28-32 [facility] CenterMean Corpuscular Hemoglobin Concent 2019-09-29 05:50:00* Test Item Value Reference Range Interpretation Comments Mean Corpuscular Hemoglobin Concent (test code = 786-4) 33.3 31-35 [facility] CenterRed Cell Distribution Thctc7892-62-06 05:50:00* Test Item Value Reference Range Interpretation Comments Red Cell Distribution Width (test code = 79571-2) 14.6 11.7 -14.4 H [facility] CenterPlatelet Blyvg9489-35-49 05:50:00* Test Item Value Reference Range Interpretation Comments Platelet Count (test code = 777-3) 235 140-360 [facility] CenterNeutrophils (%) (Auto)2019-09-29 05:50:00 * Test Item Value Reference Range Interpretation Comments Neutrophils (%) (Auto) (test code = 58860-9) 80.5 38.7-80.0 H [facility] CenterLymphocytes (%) (Auto)2019-09-29 05:50:00 * Test Item Value Reference Range Interpretation Comments Lymphocytes (%) (Auto) (test code = 736-9) 5.3 18.0-39.1 L [facility] CenterMonocytes (%) (Auto)2019-09-29 05:50:00* Test Item Value Reference Range Interpretation Comments Monocytes (%) (Auto) (test code = 5905-5) 10.0 4.4-11.3 [facility] CenterEosinophils (%) (Auto)2019-09-29 05:50:00 * Test Item Value Reference Range Interpretation Comments Eosinophils (%) (Auto) (test code = 713-8) 3.6 0.0-6.0 [facility] CenterBasophils (%) (Auto)2019-09-29 05:50:00* Test Item Value Reference Range Interpretation Comments Basophils (%) (Auto) (test code = 706-2) 0.3 0.0-1.0 [facility] CenterIM GRANULOCYTES %2019-09-29 05:50:00* Test Item Value Reference Range Interpretation Comments IM GRANULOCYTES % (test code = IM GRANULOCYTES %) 0.3 0.0- 1.0 [facility] CenterNeutrophils # (Auto)2019-09-29 05:50:00* Test Item Value Reference Range Interpretation Comments Neutrophils # (Auto) (test code = 751-8) 12.1 2.1-6.9 H [facility] CenterLymphocytes # (Auto)2019-09-29 05:50:00* Test Item Value Reference Range Interpretation Comments Lymphocytes # (Auto) (test code = 20833-2) 0.8 1.0-3.2 L [facility] CenterMonocytes # (Auto)2019-09-29 05:50:00* Test Item Value Reference Range Interpretation Comments Monocytes # (Auto) (test code = 742-7) 1.5 0.2-0.8 H [facility] CenterEosinophils # (Auto)2019-09-29 05:50:00* Test Item Value Reference Range Interpretation Comments Eosinophils # (Auto) (test code = 711-2) 0.5 0.0-0.4 H [facility] CenterBasophils # (Auto)2019-09-29 05:50:00* Test Item Value Reference Range Interpretation Comments Basophils # (Auto) (test code = 704-7) 0.0 0.0-0.1 [facility] CenterAbsolute Immature Granulocyte (auto 2019-09-29 05:50:00* Test Item Value Reference Range Interpretation Comments Absolute Immature Granulocyte (auto (dionicio t code = Absolute Immature Granulocyte (auto) 0.05 0-0.1 [facility] CenterUrine [id number] 12:34:00* Test Item Value Reference Range Interpretation Comments Urine WBC (test code = 5821-4) 6-10 0-5 H [facility] CenterUrine PDA5503-37-27 12:34:00* Test Item Value Reference Range Interpretation Comments Urine RBC (test code = 81557-4) 0-5 0-5 [facility] CenterUrine Uqtgslzm4253-91-32 12:34:00* Test Item Value Reference Range Interpretation Comments Urine Bacteria (test code = 75916-9) FEW NONE [facility] CenterUrine Epithelial Orubd1167-12-36 12:34:00 * Test Item Value Reference Range Interpretation Comments Urine Epithelial Cells (test code = 60366-5) FEW NONE [facility] CenterUrine Hjejl9654-19-08 12:18:00* Test Item Value Reference Range Interpretation Comments Urine Color (test code = 5778-6) YELLOW YELLOW [facility] CenterUrine Psvvqzl9967-07-65 12:18:00* Test Item Value Reference Range Interpretation Comments Urine Clarity (test code = 07860-1) CLEAR CLEAR [facility] Specific Penwswk9099-53-34 12:18:00 * Test Item Value Reference Range Interpretation Comments Urine Specific [place] (test code = 5811-5) 1.010 1.010-1.02 5 [facility] CenterUrine [id number] 12:18:00* Test Item Value Reference Range Interpretation Comments Urine pH (test code = 75062-1) 7.5 5-7 [facility] Leukocyte Igbkfpzy7480-61-40 12:18:00* Test Item Value Reference Range Interpretation Comments Urine Leukocyte Esterase (test code = 5799-2) NEGATIVE NEGATIVE [facility] Pagnrem0806-16-69 12:18:00* Test Item Value Reference Range Interpretation Comments Urine Nitrite (test code = 96820-1) NEGATIVE NEGATIVE [facility] Bzwbjzb5565-53-79 12:18:00* Test Item Value Reference Range Interpretation Comments Urine Protein (test code = 5804-0) NEGATIVE NEGATIVE [facility] Glucose (UA)2019-09-28 12:18:00* Test Item Value Reference Range Interpretation Comments Urine Glucose (UA) (test code = 2349-9) NEGATIVE NEGATIVE [facility] Kvvizil4530-71-34 12:18:00* Test Item Value Reference Range Interpretation Comments Urine Ketones (test code = 82387-5) NEGATIVE NEGATIVE [facility] Mptyshzqkvns3416-11-92 12:18:00* Test Item Value Reference Range Interpretation Comments Urine Urobilinogen (test code = 33280-7) 0.2 0.2-1 [facility] Qcbcvjrbf1490-55-88 12:18:00* Test Item Value Reference Range Interpretation Comments Urine Bilirubin (test code = 1978-6) NEGATIVE NEGATIVE [facility] Igmts4735-78-73 12:18:00* Test Item Value Reference Range Interpretation Comments Urine Blood (test code = 79338-4) NEGATIVE NEGATIVE [facility] CenterTotal Hwgwtsqhb8783-44-74 12:03:00* Test Item Value Reference Range Interpretation Comments Total Bilirubin (test code = 1975-2) 0.9 0.2-1.2 [facility] CenterAspartate Amino Transf (AST/SGOT) 2019-09-28 12:03:00* Test Item Value Reference Range Interpretation Comments Aspartate Amino Transf (AST/SGOT) (test code = Aspartate Amino Transf (AST/SGOT)) 26 5-34 [facility] CenterAlanine Aminotransferase (ALT/SGPT) 2019-09-28 12:03:00* Test Item Value Reference Range Interpretation Comments Alanine Aminotransferase (ALT/SGPT) (test code = 1742-6) 16 0-55 [facility] CenterTotal Oeifcxp5319-92-97 12:03:00* Test Item Value Reference Range Interpretation Comments Total Protein (test code = 2885-2) 7.6 6.5-8.1 [facility] CenterAlbumin2020-03-02 12:03:00* Test Item Value Reference Range Interpretation Comments Albumin (test code = 1751-7) 3.9 3.5-5.0 [facility] CenterGlobulin2020-03-02 12:03:00* Test Item Value Reference Range Interpretation Comments Globulin (test code = 10040-6) 3.7 2.3-3.5 H [facility] CenterAlbumin/Globulin Hzpvx2394-92-86 12:03:00 * Test Item Value Reference Range Interpretation Comments Albumin/Globulin Ratio (test code = 1759-0) 1.1 0.8-2.0 [facility] CenterAlkaline Dcxwuphwdfm9518-65-33 12:03:00* Test Item Value Reference Range Interpretation Comments Alkaline Phosphatase (test code = 6768-6) 133 40-150 [facility] CenterB-Type Natriuretic Ubievmg1097-17-05 12:03:00* Test Item Value Reference Range Interpretation Comments B-Type Natriuretic Peptide (test code = 03099-6) 404.7 0-100 H [facility] CenterCT BRAIN OU1158-93-92 12:03:00 [facility] [address] [place] [address] Patient Name: SIDNEY ALLEN JR MR #: [id number] : Age/Sex: 69/M Req #: [id number] Adm Physician: Ordered by: YADIRA CHOU DO Report #: [id number] Location: ER Room/Bed: Procedure: [id number]/CT [...] CHOU DO CHEST 2 VIEWS 2019-09-28 12:02:00 [place] [address] Patient Name: SIDNEY ALLEN JR MR #: [id number] : 1950 Age/Sex: 69/M Req #: [id number] Adm Physician: Ordered by: YADIRA CHOU DO Report #: [id number] Location: ER Room/Bed: Procedure: [id number] 5 DX/CHEST [...] YADIRA CHOU DO CHEST SINGLE (PORTABLE)2018-09-29 16:38:00 [facility] [address] [place] [address] Patient Name: SIDNEY ALLEN JR MR #: [id number] : 1950 Age/Sex: 68/M Req #: [id number] Adm Physician: Ordered by: CYNTHIA CARNES MD Report #: [id number] Location: [facility] [employer] [facility] Room/Bed: Procedure: 78 DX/CHEST SINGLE (PORTABLE) Exam Date: Exam [...] 4:40 PM Dictated By: CHIQUIS SCOTT MD Electronica lly Signed By: CHIQUIS SCOTT MD on 09/29/18 1640 Transcribed By: ALE on 11/14 1640 COPY TO: CYNTHIA CARNES MD Prothrombin Hsnk9900-47-90 11:34:00* Test Item Value Reference Range Interpretation Comments Prothrombin Time (test code = 5902-2) 13.2 11.9-14.5 [facility] CenterProthromb Time International Ratio 2018-09-26 11:34:00* Test Item Value Reference Range Interpretation Comments Prothromb Time International Ratio (test code = 6301-6) 0.92 Oral Anticoagulant Therapy INR Values:1. Low Intensity Therapy 1.5 - 2.02 . Moderate Intensity Therapy 2.0 - 3.03. High Intensity Therapy(1) 2.5 - 3. 54. High Intensity Therapy(2) 3.0 - 4.05. Panic Value INR > 5.0 [facility] Xejet8657-55-34 11:34:00* Test Item Value Reference Range Interpretation Comments Sodium Level (test code = 2951-2) 133 136-145 L [facility] CenterPotassium Xyxrr6641-52-35 11:34:00* Test Item Value Reference Range Interpretation Comments Potassium Level (test code = 2823-3) 4.1 3.5-5.1 [facility] CenterChloride Zdnxz6562-77-44 11:34:00* Test Item Value Reference Range Interpretation Comments Chloride Level (test code = 2075-0) 92 98-107 L [facility] CenterCarbon Dioxide Ygakr5783-93-67 11:34:00* Test Item Value Reference Range Interpretation Comments Carbon Dioxide Level (test code = 2028-9) 32 22-29 H [facility] CenterAnion Gvp8411-21-07 11:34:00* Test Item Value Reference Range Interpretation Comments Anion Gap (test code = 54989-0) 13.1 8-16 [facility] CenterBlood Urea Mgbbvbpt3465-30-98 11:34:00* Test Item Value Reference Range Interpretation Comments Blood Urea Nitrogen (test code = 3094-0) 28 7-26 H [facility] CenterCreatinine2019-03-01 11:34:00* Test Item Value Reference Range Interpretation Comments Creatinine (test code = 2160-0) 1.54 0.72-1.25 H [facility] CenterBUN/Creatinine Qqofb9885-31-06 11:34:00* Test Item Value Reference Range Interpretation Comments BUN/Creatinine Ratio (test code = 3097-3) 18 6-25 [facility] CenterEstimat Glomerular Filtration Rate 2018-09-26 11:34:00* Test Item Value Reference Range Interpretation Comments Estimat Glomerular Filtration Rate (test code = 233385371) 45 >60 L Ranges were taken from the National Kidney Disease Education Program and the [facility] Kidney Foundation literature.Reference ranges:60 or greater: Ccckzm55-91 ( for 3 consecutive months): Chronic kidney disease 15 or less: Kidney failureBig Bend [facility] Dlpji4226-03-55 11:34:00* Test Item Value Reference Range Interpretation Comments Glucose Level (test code = HUQ9732) 93 74-118 [facility] CenterCalcium Rikmu6146-17-57 11:34:00* Test Item Value Reference Range Interpretation Comments Calcium Level (test code = 04402-1) 9.4 8.4-10.2 [facility] CenterWhite Blood Imkzu2670-42-48 11:12:00* Test Item Value Reference Range Interpretation Comments White Blood Count (test code = 6690-2) 10.79 4.8-10.8 [facility] CenterRed Blood Rficc3867-59-08 11:12:00* Test Item Value Reference Range Interpretation Comments Red Blood Count (test code = 789-8) 3.85 4.3-5.7 L [facility] CenterHemoglobin2019-03-01 11:12:00* Test Item Value Reference Range Interpretation Comments Hemoglobin (test code = 31422-9) 12.1 14.0-18.0 L [facility] CenterHematocrit2019-03-01 11:12:00* Test Item Value Reference Range Interpretation Comments Hematocrit (test code = 4544-3) 36.5 38.2-49.6 L [facility] CenterMean Corpuscular Rwtzaf0700-96-37 11:12:00* Test Item Value Reference Range Interpretation Comments Mean Corpuscular Volume (test code = 787-2) 94.8 81-99 [facility] CenterMean Corpuscular Yirvctszag4150-29-76 11:12:00* Test Item Value Reference Range Interpretation Comments Mean Corpuscular Hemoglobin (test code = 785-6) 31.4 28-32 [facility] CenterMean Corpuscular Hemoglobin Concent 2018-09-26 11:12:00* Test Item Value Reference Range Interpretation Comments Mean Corpuscular Hemoglobin Concent (test code = 786-4) 33.2 31-35 [facility] CenterRed Cell Distribution Lswdu1811-49-47 11:12:00* Test Item Value Reference Range Interpretation Comments Red Cell Distribution Width (test code = 54061-3) 13.6 11.7 -14.4 [facility] CenterPlatelet Ytkzo8307-84-78 11:12:00* Test Item Value Reference Range Interpretation Comments Platelet Count (test code = 777-3) 165 140-360 [facility] CenterNeutrophils (%) (Auto)2018-09-26 11:12:00 * Test Item Value Reference Range Interpretation Comments Neutrophils (%) (Auto) (test code = 10057-8) 82.9 38.7-80.0 H [facility] CenterLymphocytes (%) (Auto)2018-09-26 11:12:00 * Test Item Value Reference Range Interpretation Comments Lymphocytes (%) (Auto) (test code = 736-9) 4.8 18.0-39.1 L [facility] CenterMonocytes (%) (Auto)2018-09-26 11:12:00* Test Item Value Reference Range Interpretation Comments Monocytes (%) (Auto) (test code = 5905-5) 10.6 4.4-11.3 [facility] CenterEosinophils (%) (Auto)2018-09-26 11:12:00 * Test Item Value Reference Range Interpretation Comments Eosinophils (%) (Auto) (test code = 713-8) 0.9 0.0-6.0 [facility] CenterBasophils (%) (Auto)2018-09-26 11:12:00* Test Item Value Reference Range Interpretation Comments Basophils (%) (Auto) (test code = 706-2) 0.2 0.0-1.0 [facility] CenterIM GRANULOCYTES %2018-09-26 11:12:00* Test Item Value Reference Range Interpretation Comments IM GRANULOCYTES % (test code = IM GRANULOCYTES %) 0.6 0.0- 1.0 [facility] CenterNeutrophils # (Auto)2018-09-26 11:12:00* Test Item Value Reference Range Interpretation Comments Neutrophils # (Auto) (test code = 751-8) 9.0 2.1-6.9 H [facility] CenterLymphocytes # (Auto)2018-09-26 11:12:00* Test Item Value Reference Range Interpretation Comments Lymphocytes # (Auto) (test code = 76081-5) 0.5 1.0-3.2 L [facility] CenterMonocytes # (Auto)2018-09-26 11:12:00* Test Item Value Reference Range Interpretation Comments Monocytes # (Auto) (test code = 742-7) 1.1 0.2-0.8 H [facility] CenterEosinophils # (Auto)2018-09-26 11:12:00* Test Item Value Reference Range Interpretation Comments Eosinophils # (Auto) (test code = 711-2) 0.1 0.0-0.4 [facility] CenterBasophils # (Auto)2018-09-26 11:12:00* Test Item Value Reference Range Interpretation Comments Basophils # (Auto) (test code = 704-7) 0.0 0.0-0.1 [facility] CenterAbsolute Immature Granulocyte (auto 2018-09-26 11:12:00* Test Item Value Reference Range Interpretation Comments Absolute Immature Granulocyte (auto (dionicio t code = Absolute Immature Granulocyte (auto) 0.06 0-0.1 [facility] CenterCHEST 2 WVPSP2514-05-06 13:43:00 [place] [address] Patient Name: SIDNEY ALLEN JR MR #: [id number] : 1950 Age/Sex: 67/M Req #: [id number] Adm Physician: Ordered by: ROSEANN CROWE MD Report #: [id number] Location: [facility] Room/Bed: Procedure: [id number] DX/CHEST 2 VIEWS Exam D ate: 01/31/18 [...] TO: ROSEANN CROWE MD Differential Total Cells Okvtdyv1281-07-11 07:59:00* Test Item Value Reference Range Interpretation Comments Differential Total Cells Counted (test code = Differen tial Total Cells Counted) 100 [facility] CenterNeutrophils % (Manual)2017-12-24 07:59:00 * Test Item Value Reference Range Interpretation Comments Neutrophils % (Manual) (test code = 93355-1) 80 40-74 H [facility] CenterLymphocytes % (Manual)2017-12-24 07:59:00 * Test Item Value Reference Range Interpretation Comments Lymphocytes % (Manual) (test code = 737-7) 3 19-48 L [facility] CenterMonocytes % (Manual)2017-12-24 07:59:00* Test Item Value Reference Range Interpretation Comments Monocytes % (Manual) (test code = 744-3) 12 3.4-9.0 H [facility] CenterEosinophils % (Manual)2017-12-24 07:59:00 * Test Item Value Reference Range Interpretation Comments Eosinophils % (Manual) (test code = 714-6) 3 0-7 [facility] CenterMyelocytes %2017-12-24 07:59:00* Test Item Value Reference Range Interpretation Comments Myelocytes % (test code = 749-2) 1 0-0 H [facility] CenterReactive Cmkqjboiqpt5204-08-48 07:59:00* Test Item Value Reference Range Interpretation Comments Reactive Lymphocytes (test code = 98820-8) 1 [facility] CenterPlatelet Llorezyl5286-77-86 07:59:00* Test Item Value Reference Range Interpretation Comments Platelet Estimate (test code = 22304-6) ADEQUATE [facility] CenterPlatelet Morphology Kkejhjl8157-70-96 07:59:00* Test Item Value Reference Range Interpretation Comments Platelet Morphology Comment (test code = 88520-5) NORMAL [facility] CenterAnisocytosis2018-05-29 07:59:00* Test Item Value Reference Range Interpretation Comments Anisocytosis (test code = 702-1) SLIGHT [facility] CenterRed Cell Morphology Thwtqem0214-58-62 07:59:00* Test Item Value Reference Range Interpretation Comments Red Cell Morphology Comment (test code = 6742-1) NORMAL [facility] CenterDifferential Total Cells Counted 2017-12-24 07:59:00* Test Item Value Reference Range Interpretation Comments Differential Total Cells Counted (test code = Differmaty tial Total Cells Counted) 100 [facility] CenterNeutrophils % (Manual)2017-12-24 07:59:00 * Test Item Value Reference Range Interpretation Comments Neutrophils % (Manual) (test code = 87725-9) 80 40-74 H [facility] CenterLymphocytes % (Manual)2017-12-24 07:59:00 * Test Item Value Reference Range Interpretation Comments Lymphocytes % (Manual) (test code = 737-7) 3 19-48 L [facility] CenterMonocytes % (Manual)2017-12-24 07:59:00* Test Item Value Reference Range Interpretation Comments Monocytes % (Manual) (test code = 744-3) 12 3.4-9.0 H [facility] CenterEosinophils % (Manual)2017-12-24 07:59:00 * Test Item Value Reference Range Interpretation Comments Eosinophils % (Manual) (test code = 714-6) 3 0-7 [facility] CenterMyelocytes %2017-12-24 07:59:00* Test Item Value Reference Range Interpretation Comments Myelocytes % (test code = 749-2) 1 0-0 H [facility] CenterReactive Qndomeqsgkz2976-77-02 07:59:00* Test Item Value Reference Range Interpretation Comments Reactive Lymphocytes (test code = 20852-7) 1 [facility] CenterPlatelet Vmglabwd6810-99-45 07:59:00* Test Item Value Reference Range Interpretation Comments Platelet Estimate (test code = 08162-0) ADEQUATE [facility] CenterPlatelet Morphology Xdnlvbx7405-07-96 07:59:00* Test Item Value Reference Range Interpretation Comments Platelet Morphology Comment (test code = 09074-0) NORMAL [facility] CenterAnisocytosis2018-05-29 07:59:00* Test Item Value Reference Range Interpretation Comments Anisocytosis (test code = 702-1) SLIGHT [facility] CenterRed Cell Morphology Frxbsvl1034-71-94 07:59:00* Test Item Value Reference Range Interpretation Comments Red Cell Morphology Comment (test code = 6742-1) [facility]AL [facility] Zeqvk8936-56-15 06:51:00* Test Item Value Reference Range Interpretation Comments Sodium Level (test code = 2951-2) 132 136-145 L [facility] CenterPotassium Dfmyq7204-88-63 06:51:00* Test Item Value Reference Range Interpretation Comments Potassium Level (test code = 2823-3) 3.1 3.5-5.1 L [facility] CenterChloride Waxqd4312-71-41 06:51:00* Test Item Value Reference Range Interpretation Comments Chloride Level (test code = 2075-0) 89 98-107 L [facility] CenterCarbon Dioxide Ahbyd4864-92-67 06:51:00* Test Item Value Reference Range Interpretation Comments Carbon Dioxide Level (test code = 2028-9) 30 22-29 H [facility] CenterAnion Rsv2278-83-66 06:51:00* Test Item Value Reference Range Interpretation Comments Anion Gap (test code = 57012-2) 16.1 8-16 H [facility] CenterBlood Urea Aazmtfsa4902-05-45 06:51:00* Test Item Value Reference Range Interpretation Comments Blood Urea Nitrogen (test code = 3094-0) 13 7-26 [facility] CenterCreatinine2018-05-29 06:51:00* Test Item Value Reference Range Interpretation Comments Creatinine (test code = 2160-0) 0.89 0.72-1.25 [facility] CenterBUN/Creatinine Jdfhu0985-51-46 06:51:00* Test Item Value Reference Range Interpretation Comments BUN/Creatinine Ratio (test code = 3097-3) 15 6-25 [facility] CenterEstimat Glomerular Filtration Rate 2017-12-24 06:51:00* Test Item Value Reference Range Interpretation Comments Estimat Glomerular Filtration Rate (test code = 24141-5) 60- >60 Ranges were taken from the National Kidney Disease Education Program and the [facility] Foundation literature.Reference ranges:60 or greater: Pkpfzk39-40 ( for 3 consecutive months): Chronic kidney disease 15 or less: Kidney failureBig [facility] Medical CenterGlucose Enixn0623-26-62 06:51:00* Test Item Value Reference Range Interpretation Comments Glucose Level (test code = VIN2646) 96 74-118 [facility] CenterCalcium Wukub9566-86-99 06:51:00* Test Item Value Reference Range Interpretation Comments Calcium Level (test code = 03339-5) 9.6 8.4-10.2 [facility] CenterWhite Blood Umsox0937-35-93 06:40:00* Test Item Value Reference Range Interpretation Comments White Blood Count (test code = 6690-2) 14.32 4.8-10.8 H [facility] CenterRed Blood Vhfmu0744-15-82 06:40:00* Test Item Value Reference Range Interpretation Comments Red Blood Count (test code = 789-8) 3.76 4.3-5.7 L [facility] CenterHemoglobin2018-05-29 06:40:00* Test Item Value Reference Range Interpretation Comments Hemoglobin (test code = 98464-5) 11.6 14.0-18.0 L [facility] CenterHematocrit2018-05-29 06:40:00* Test Item Value Reference Range Interpretation Comments Hematocrit (test code = 4544-3) 34.9 38.2-49.6 L [facility] CenterMean Corpuscular Zounvz2786-79-15 06:40:00* Test Item Value Reference Range Interpretation Comments Mean Corpuscular Volume (test code = 787-2) 92.8 81-99 [facility] CenterMean Corpuscular Vobaffhchc4678-74-45 06:40:00* Test Item Value Reference Range Interpretation Comments Mean Corpuscular Hemoglobin (test code = 785-6) 30.9 28-32 [facility] CenterMean Corpuscular Hemoglobin Concent 2017-12-24 06:40:00* Test Item Value Reference Range Interpretation Comments Mean Corpuscular Hemoglobin Concent (test code = 786-4) 33.2 31-35 [facility] CenterRed Cell Distribution Gjegf4840-73-05 06:40:00* Test Item Value Reference Range Interpretation Comments Red Cell Distribution Width (test code = 66931-9) 13.4 11.7 -14.4 [facility] CenterPlatelet Ehpex9553-14-19 06:40:00* Test Item Value Reference Range Interpretation Comments Platelet Count (test code = 777-3) 218 140-360 [facility] CenterNeutrophils (%) (Auto)2017-12-24 06:40:00 * Test Item Value Reference Range Interpretation Comments Neutrophils (%) (Auto) (test code = 99498-3) 80.4 38.7-80.0 H [facility] CenterLymphocytes (%) (Auto)2017-12-24 06:40:00 * Test Item Value Reference Range Interpretation Comments Lymphocytes (%) (Auto) (test code = 736-9) 5.3 18.0-39.1 L [facility] CenterMonocytes (%) (Auto)2017-12-24 06:40:00* Test Item Value Reference Range Interpretation Comments Monocytes (%) (Auto) (test code = 5905-5) 11.3 4.4-11.3 [facility] CenterEosinophils (%) (Auto)2017-12-24 06:40:00 * Test Item Value Reference Range Interpretation Comments Eosinophils (%) (Auto) (test code = 713-8) 2.1 0.0-6.0 [facility] CenterBasophils (%) (Auto)2017-12-24 06:40:00* Test Item Value Reference Range Interpretation Comments Basophils (%) (Auto) (test code = 706-2) 0.3 0.0-1.0 [facility] CenterIM GRANULOCYTES %2017-12-24 06:40:00* Test Item Value Reference Range Interpretation Comments IM GRANULOCYTES % (test code = IM GRANULOCYTES %) 0.6 0.0- 1.0 [facility] CenterNeutrophils # (Auto)2017-12-24 06:40:00* Test Item Value Reference Range Interpretation Comments Neutrophils # (Auto) (test code = 751-8) 11.5 2.1-6.9 H [facility] CenterLymphocytes # (Auto)2017-12-24 06:40:00* Test Item Value Reference Range Interpretation Comments Lymphocytes # (Auto) (test code = 14316-5) 0.8 1.0-3.2 L [facility] CenterMonocytes # (Auto)2017-12-24 06:40:00* Test Item Value Reference Range Interpretation Comments Monocytes # (Auto) (test code = 742-7) 1.6 0.2-0.8 H [facility] CenterEosinophils # (Auto)2017-12-24 06:40:00* Test Item Value Reference Range Interpretation Comments Eosinophils # (Auto) (test code = 711-2) 0.3 0.0-0.4 [facility] CenterBasophils # (Auto)2017-12-24 06:40:00* Test Item Value Reference Range Interpretation Comments Basophils # (Auto) (test code = 704-7) 0.0 0.0-0.1 [facility] CenterAbsolute Immature Granulocyte (auto 2017-12-24 06:40:00* Test Item Value Reference Range Interpretation Comments Absolute Immature Granulocyte (auto (dionicio t code = Absolute Immature Granulocyte (auto) 0.08 0-0.1 [facility] CenterCreatine Kinase XP4705-11-07 15:04:00* Test Item Value Reference Range Interpretation Comments Creatine Kinase MB (test code = 29399-3) 1.40 0-5.0 [facility] CenterTroponin X5504-44-01 15:04:00* Test Item Value Reference Range Interpretation Comments Troponin I (test code = CDH1289) 0.044 0-0.300 [facility] CenterCreatine Kinase QO3801-00-38 15:04:00* Test Item Value Reference Range Interpretation Comments Creatine Kinase MB (test code = 52806-5) 1.40 0-5.0 [facility] CenterTroponin L0070-01-84 15:04:00* Test Item Value Reference Range Interpretation Comments Troponin I (test code = KXB1140) 0.044 0-0.300 [facility] CenterCreatine Cjoccd7206-12-55 14:57:00* Test Item Value Reference Range Interpretation Comments Creatine Kinase (test code = 2157-6) 51 30-200 [facility] CenterCreatine Kbkiji5218-09-67 14:57:00* Test Item Value Reference Range Interpretation Comments Creatine Kinase (test code = 2157-6) 51 30-200 [facility] CenterB-Type Natriuretic Utmiwds0284-33-81 20:03:00* Test Item Value Reference Range Interpretation Comments B-Type Natriuretic Peptide (test code = 37410-6) 318.3 0-100 H [facility] CenterThyroid Stimulating Hormone (TSH) 2017-12-22 20:03:00* Test Item Value Reference Range Interpretation Comments Thyroid Stimulating Hormone (TSH) (test code = 66621-2) 1.022 0.350-4.940 [facility] CenterB-Type Natriuretic Rqknksy1755-30-13 20:03:00* Test Item Value Reference Range Interpretation Comments B-Type Natriuretic Peptide (test code = 25317-6) 318.3 0-100 H [facility] CenterThyroid Stimulating Hormone (TSH) 2017-12-22 20:03:00* Test Item Value Reference Range Interpretation Comments Thyroid Stimulating Hormone (TSH) (test code = 66893-1) 1.022 0.350-4.940 [facility] CenterTotal Ubcalovlc1042-99-56 19:33:00* Test Item Value Reference Range Interpretation Comments Total Bilirubin (test code = 1975-2) 1.7 0.2-1.2 H [facility] CenterAspartate Amino Transf (AST/SGOT) 2017-12-22 19:33:00* Test Item Value Reference Range Interpretation Comments Aspartate Amino Transf (AST/SGOT) (test code = Aspartate Amino Transf (AST/SGOT)) 32 5-34 [facility] CenterAlanine Aminotransferase (ALT/SGPT) 2017-12-22 19:33:00* Test Item Value Reference Range Interpretation Comments Alanine Aminotransferase (ALT/SGPT) (test code = 1742-6) 19 0-55 [facility] CenterTotal Muripea0218-93-67 19:33:00* Test Item Value Reference Range Interpretation Comments Total Protein (test code = 2885-2) 8.1 6.5-8.1 [facility] CenterAlbumin2018-05-27 19:33:00* Test Item Value Reference Range Interpretation Comments Albumin (test code = 1751-7) 3.9 3.5-5.0 [facility] CenterGlobulin2018-05-27 19:33:00* Test Item Value Reference Range Interpretation Comments Globulin (test code = 41294-5) 4.2 2.3-3.5 H [facility] CenterAlbumin/Globulin Gnjwd3836-16-36 19:33:00 * Test Item Value Reference Range Interpretation Comments Albumin/Globulin Ratio (test code = 1759-0) 0.9 0.8-2.0 [facility] CenterAlkaline Ntdboylunus5540-65-72 19:33:00* Test Item Value Reference Range Interpretation Comments Alkaline Phosphatase (test code = 6768-6) 118 40-150 [facility] CenterTotal Vwprxhwed7042-30-76 19:33:00* Test Item Value Reference Range Interpretation Comments Total Bilirubin (test code = 1975-2) 1.7 0.2-1.2 H [facility] CenterAspartate Amino Transf (AST/SGOT) 2017-12-22 19:33:00* Test Item Value Reference Range Interpretation Comments Aspartate Amino Transf (AST/SGOT) (test code = Aspartate Amino Transf (AST/SGOT)) 32 5-34 [facility] CenterAlanine Aminotransferase (ALT/SGPT) 2017-12-22 19:33:00* Test Item Value Reference Range Interpretation Comments Alanine Aminotransferase (ALT/SGPT) (test code = 1742-6) 19 0-55 [facility] CenterTotal Ohbfdok5455-75-79 19:33:00* Test Item Value Reference Range Interpretation Comments Total Protein (test code = 2885-2) 8.1 6.5-8.1 [facility] CenterAlbumin2018-05-27 19:33:00* Test Item Value Reference Range Interpretation Comments Albumin (test code = 1751-7) 3.9 3.5-5.0 [facility] CenterGlobulin2018-05-27 19:33:00* Test Item Value Reference Range Interpretation Comments Globulin (test code = 59963-5) 4.2 2.3-3.5 H [facility] CenterAlbumin/Globulin Ksoas2598-72-14 19:33:00 * Test Item Value Reference Range Interpretation Comments Albumin/Globulin Ratio (test code = 1759-0) 0.9 0.8-2.0 [facility] CenterAlkaline Ibahefosfpd7383-81-82 19:33:00* Test Item Value Reference Range Interpretation Comments Alkaline Phosphatase (test code = 6768-6) 118 40-150 [facility] CenterArterial Blood rV8615-54-89 19:30:00* Test Item Value Reference Range Interpretation Comments Arterial Blood pH (test code = 2744-1) 7.62 7.31-7.41 H [facility] CenterArterial Blood Partial Pressure CO2 2017-12-22 19:30:00* Test Item Value Reference Range Interpretation Comments Arterial Blood Partial Pressure CO2 (test code = 2018-8) 29 41-51 L [facility] CenterArterial Blood Partial Pressure O2 2017-12-22 19:30:00* Test Item Value Reference Range Interpretation Comments Arterial Blood Partial Pressure O2 (test code = 2019-8) 84 80-105 [facility] CenterArterial Blood WUJ66195-24-45 19:30:00* Test Item Value Reference Range Interpretation Comments Arterial Blood HCO3 (test code = 1960-4) 30 23-28 H [facility] CenterArterial Blood Base Iigtux1992-28-83 19:30:00* Test Item Value Reference Range Interpretation Comments Arterial Blood Base Excess (test code = 1925-7) 8.0 -2-3 H [facility] CenterArterial Blood Oxygen Saturation 2017-12-22 19:30:00* Test Item Value Reference Range Interpretation Comments Arterial Blood Oxygen Saturation (test code = 2708-6) 98.0 95-98 [facility] CenterFiO22018-05-27 19:30:00* Test Item Value Reference Range Interpretation Comments FiO2 (test code = FiO2) 28 [place] 2LBig [facility] CenterArterial Blood tZ1972-62-95 19:30:00 * Test Item Value Reference Range Interpretation Comments Arterial Blood pH (test code = 2744-1) 7.62 7.31-7.41 H [facility] CenterArterial Blood Partial Pressure CO2 2017-12-22 19:30:00* Test Item Value Reference Range Interpretation Comments Arterial Blood Partial Pressure CO2 (test code = 2018-) 29 41-51 L [facility] CenterArterial Blood Partial Pressure O2 2017-12-22 19:30:00* Test Item Value Reference Range Interpretation Comments Arterial Blood Partial Pressure O2 (test code = 2019-02) 84 80-105 [facility] CenterArterial Blood ZNW32645-61-82 19:30:00* Test Item Value Reference Range Interpretation Comments Arterial Blood HCO3 (test code = 1960-4) 30 23-28 H [facility] CenterArterial Blood Base Cfgrzk3147-53-22 19:30:00* Test Item Value Reference Range Interpretation Comments Arterial Blood Base Excess (test code = 1925-7) 8.0 -2-3 H [facility] CenterArterial Blood Oxygen Saturation 2017-12-22 19:30:00* Test Item Value Reference Range Interpretation Comments Arterial Blood Oxygen Saturation (test code = 2708-6) 98.0 95-98 [facility] CenterFiO22018-05-27 19:30:00* Test Item Value Reference Range Interpretation Comments FiO2 (test code = FiO2) 28 [place] 2LBig [facility] Medical CenterD-Dimer Quantitative (PE/DVT) 2017-12-22 19:27:00* Test Item Value Reference Range Interpretation Comments D-Dimer Quantitative (PE/DVT) (test code = 98186-6) 0.86 0. 00-0.45 H [facility] CenterD-Dimer Quantitative (PE/DVT)2017-12-22 19:27:00* Test Item Value Reference Range Interpretation Comments D-Dimer Quantitative (PE/DVT) (test code = 28320-0) 0.86 0. 00-0.45 H [facility] CenterProthrombin Szns2356-81-75 19:23:00* Test Item Value Reference Range Interpretation Comments Prothrombin Time (test code = 5902-2) 13.9 11.9-14.5 [facility] CenterProthromb Time International Ratio 2017-12-22 19:23:00* Test Item Value Reference Range Interpretation Comments Prothromb Time International Ratio (test code = 6301-6) 1.16 Oral Anticoagulant Therapy INR Values:1. Low Intensity Therapy 1.5 - 2.02 . Moderate Intensity Therapy 2.0 - 3.03. High Intensity Therapy(1) 2.5 - 3. 54. High Intensity Therapy(2) 3.0 - 4.05. Panic Value INR > 5.0 [facility] CenterActivated Partial Thromboplast Time 2017-12-22 19:23:00* Test Item Value Reference Range Interpretation Comments Activated Partial Thromboplast Time (test code = 39323-4) 42.6 23.8-35.5 H [facility] CenterActivated Partial Thromboplast Time 2017-12-22 19:23:00* Test Item Value Reference Range Interpretation Comments Activated Partial Thromboplast Time (test code = 39507-1) 42.6 23.8-35.5 H [facility] CenterCHEST SINGLE ([facility]ABLE) [facility] [address] [place] [address] Patient Name: SIDNEY ALLEN JR MR #: [id number] : 1950 Age/Sex: 67/M Req #: [id number] Adm Physician: Ordered by: BHARATH CALDWELL MD Report #: [id number] Location: ER Room/Bed: Procedure: [id number] DX/CHEST SINGLE (TRAVIS BLE) Exam Date: 12/22/17 [...]
--- NOTE | 2020-06-22 16:58 | NUR ---
Pt arrived on the floor via stretcher and in no apparent distress. Pt ambulated from stretcher to bed with steady gate. Bed in its lowest position. Pt denies pain 0/10.
[2020-06-22 17:22] VITALS: BP 91/76
[2020-06-22 17:23] VITALS: BP 95/70
--- NOTE | 2020-06-22 19:00 | NUR ---
Report given to on coming nurse. Pt lying in bed semi-fowlers position and no apparent distress. Bed in its lowest position, call light within reach. Pt denies pain 0/10.
--- NOTE | 2020-06-22 19:00 | NUR ---
RECEIVED BEDSIDE SHIFT REPORT FROM PREVIOUS NURSE. CALL LIGHT WITHIN REACH. PATIENT IN BED
[2020-06-22 19:50] VITALS: BP 72/56
[2020-06-22 20:00] VITALS: BP 72/56
[2020-06-23] VITALS: BP 73/60
[2020-06-23 04:00] VITALS: BP 88/55
[2020-06-23 05:25] LABS: BASOPHILS % 0.3 % (0.0-1.0); EOSINOPHILS # (AUTO) 0.5 (0.0-0.4); EOSINOPHILS % 4.1 % (0.0-6.0); HEMATOCRIT 36.3 % (38.2-49.6); HEMOGLOBIN 11.8 g/dL (14.0-18.0); LYMPHOCYTES # (AUTO) 0.5 (1.0-3.2); LYMPHOCYTES % 3.9 % (18.0-39.1); MEAN CORPUSCULAR HEMOGLOBIN 30.4 pg (28-32); MEAN CORPUSCULAR HGB CONC 32.5 g/dL (31-35); MEAN CORPUSCULAR VOLUME 93.6 fL (81-99); MONOCYTES % 8.1 % (4.4-11.3); NEUTROPHILS # (AUTO) 9.9 (2.1-6.9); NEUTROPHILS % 83.3 % (38.7-80.0); PLATELET COUNT 183 x10e3/uL (140-360); RED BLOOD COUNT 3.88 x10e6/uL (4.3-5.7); RED CELL DISTRIBUTION WIDTH 16.1 % (11.7-14.4)
[2020-06-23 06:02] LABS: CALCIUM 8.4 mg/dL (8.4-10.2); CREATININE, SERUM 1.95 mg/dL (0.72-1.25)
--- NOTE | 2020-06-23 07:00 | NUR ---
RECEIVED BEDSIDE SHIFT REPORT FROM OFF GOING NIGHT NURSE. PATIENT SITTING UP IN CHAIR. RESPIRATIONS EVEN AND NONLABORED. PATIENT ABLE TO VOICE NEEDS. PATIENT IN STABLE CONDITION, NO S/S OF DISTRESS NOTED. NO COMPLAINTS OF PAIN VOICED. TELEMETRY APPLIED. CALL LIGHT WITHIN REACH, NON SKID SOCKS APPLIED.
[2020-06-23] MEDS ORDERED: HYDROCODONE/APAP 10MG-325MG TAB PO PRN (07:15)
[2020-06-23] MEDS ORDERED: TRAZODONE HCL 50 MG TAB PO PRN (07:15)
[2020-06-23] MEDS ORDERED: BUSPIRONE HCL 5 MG TAB PO PRN (07:15)
[2020-06-23] MEDS ORDERED: PROPRANOLOL HCL 10 MG TAB PO PRN (07:15)
--- NOTE | 2020-06-23 07:31 | NUR ---
GAVE BEDSIDE SHIFT TO ONCOMING NURSE. CALL LIGHT WITHIN REACH. PATIENT IN BED. HOURLY ROUNDING PERFORMED.
--- NOTE | 2020-06-23 08:10 | History and Physical ---
A 70-year-old male who came in with hypertension. HISTORY OF PRESENT ILLNESS: Mr. Nowak with a history of coronary artery disease, congestive heart failure, hypertension, hyperlipidemia, was in his usual state of health until apparently, the patient had a change in blood pressure medication and ever since, the patient has had decrease in blood pressure. He was seen in the office yesterday by the nurse practitioner. The patient was found to have blood pressure in the 90s over 50s and was sent to the ER, was admitted for fluid resuscitation and also for dehydration and hypertension. PAST MEDICAL HISTORY: History of gouty arthritis, history of chronic congestive heart failure, history of allergies, history of coronary artery disease, history of hyperlipidemia, history of nasal allergies, and B12 deficiencies. MEDICATIONS: Medications he takes at home allopurinol 300 mg, aspirin 325, BuSpar 5 mg for anxiety, cholecalciferol once a day, furosemide 40 mg b.i.d., hydrocodone 10/325 q.6 hours as needed, metolazone 5 mg daily, metoprolol ER 25 mg twice a day, potassium chloride 10 mEq twice daily, 2 tablets nighttime, Entresto , simvastatin 40, trazodone 50, and fluticasone two inhalations as needed. ALLERGIES: NO DRUG ALLERGIES. PAST SURGICAL HISTORY: History of pacemaker placement, also history of CABG. REVIEW OF SYSTEMS: Negative for chest pain. Positive for some shortness of breath and some wheezing. No nausea, vomiting, or diarrhea. No constipation. No rectal bleeding. No hematochezia. No hematemesis. No fever. Positive for feeling weak and fatigued secondary to low blood pressure. LABORATORY DATA: The patient's white count is 12,000, hemoglobin 13.1, neutrophil count of 81.6. White count today is 11.91 and neutrophil count is 83.3. Chemistry shows sodium 137, potassium of 4.5, BUN of 64, creatinine of 2.79, glucose has been 141. Chest x-ray not done. Serology, coronavirus is pending. ASSESSMENT AND PLAN: Mr. Matt Nowak is with, 1. COVID deemed PUI. 2. Leukocytosis with left shift. Chest x-ray will be warranted. 3. Consult with Cardiology will be done. We will DC his Lasix in the evening. 4. Hypertension. 5. Coronary artery disease. 6. Hyperlipidemia. We will continue the same medication. Continue Entresto for his congestive heart failure. Further recommendation per clinical course. We will continue to monitor the patient and will be kept in the hospital for telemonitoring depending on x-rays. MD MIRYAM Alba/MODL /[id number]
[2020-06-23 08:26] VITALS: BP 95/67
[2020-06-23] MEDS ORDERED: METOPROLOL SUCCINATE 25 MG TAB XL PO SCH (09:00)
[2020-06-23] MEDS ORDERED: POTASSIUM CHLORIDE 10MEQ EA PO SCH (09:00)
[2020-06-23] MEDS ORDERED: ASPIRIN 325 MG TAB PO SCH (09:00)
[2020-06-23] MEDS ORDERED: ALLOPURINOL 300 MG TAB PO SCH (09:00)
[2020-06-23] MEDS ORDERED: MONTELUKAST SODIUM 10 MG TAB PO SCH (09:00)
--- NOTE | 2020-06-23 09:03 | Diagnostic Imaging Report ---
EXAMINATION: CHEST 2 VIEWS INDICATION: ^WHEEZING ^[id number] ^[id number] COMPARISON: Multiple prior chest x-ray examinations most recent dated 06/22/20 FINDINGS: PA and lateral views TUBES and LINES: AICD is intact. Sternotomy wires are present. . LUNGS/PLEURA: Lungs are well inflated. There are increased bilateral patchy opacities could represent multifocal pneumonia or pulmonary edema.. There is no pleural effusion or pneumothorax. HEART AND MEDIASTINUM: The cardiomediastinal silhouette is obscured by adjacent opacities. BONES AND SOFT TISSUES: No acute osseous lesion. Soft tissues are unremarkable. UPPER ABDOMEN: No free air under the diaphragm. IMPRESSION: Increased bilateral patchy opacities could represent worsening multifocal pneumonia or pulmonary edema.. Signed by: Burton De Oliveira MD on 06/23/2020 9:00 AM
[2020-06-23 09:24] VITALS: BP 95/67
[2020-06-23] MEDS ORDERED: CARBAMAZEPINE 200 MG TAB PO SCH (10:00)
[2020-06-23 11:22] LABS: EOSINOPHILS % (MANUAL) 4 % (0-7); LYMPHOCYTES % (MANUAL) 4 % (19-48); MONOCYTES % (MANUAL) 10 % (3.4-9.0); NEUTROPHILS % (MANUAL) 81 % (40-74); PLATELET ESTIMATE ADEQUATE; RBC MORPHOLOGY COMMENT NORMAL
[2020-06-23 11:23] LABS: ANISOCYTOSIS SLIGHT; PLATELET MORPHOLOGY COMMENT NORMAL
--- NOTE | 2020-06-23 13:55 | NUR ---
PATIENT DISCHARGED HOME. PATIENT OFF THE UNIT @ 1351 ACCOMPANIED TO THE LOBBY BY PCT. PATIENT IN STABLE CONDITION, NO S/S DISTRESS NOTED. NO PAIN VOICED. IV REMOVED WITH TIP INTACT. ALL PERSONAL ITEMS TAKEN WITH THE PATIENT. DISCHARGE TEACHING AND INSTRUCTION GIVEN TO THE PATIENT. PATIENT VERBALIZED UNDERSTANDING. DISCHARGE PAPERWORK GIVEN TO THE PATIENT.
--- NOTE | 2020-06-23 18:36 | Consultation ---
DATE OF CONSULTATION: 06/23/2020 Cardiology Consultation REASON FOR CONSULT: Hypotension, history of CAD and CHF. CHIEF COMPLAINT: Low blood pressure, feeling unwell. HISTORY OF PRESENT ILLNESS: The patient is a 70-year-old man with history of chronic systolic CHF, status post ICD placement; history of CAD, status post PCI in the past. He says his blood pressure has been running low at home for the past several days. His blood pressure medications were cut down, but because he was feeling unwell and his blood pressure was in the 90s, he went to see his primary care doctor. He was sent to hospital for further evaluation and workup, noted to have acute kidney injury on CKD on presentation and noted to be hypotensive. Blood pressure medications were stopped except for his low-dose metoprolol and this morning his blood pressure is much better. He feels much better. Given there is Thanksgiving, the patient is insisting that he wants to go home if at all possible. Denies any chest pain or shortness of breath at this time. No dizziness, orthopnea, or PND. No lower extremity edema or any other complaints. REVIEW OF SYSTEMS: As per HPI, otherwise negative. OUTPATIENT MEDICATIONS: Reviewed. ALLERGIES: REVIEWED. PAST MEDICAL HISTORY: As per HPI. FAMILY HISTORY: Noncontributory. SOCIAL HISTORY: Does not smoke, drink, or abuse drugs. OBJECTIVE: VITAL SIGNS: Temperature afebrile, blood pressure 135/75, saturating 95% on room air. GENERAL: Well developed, well nourished, in no acute distress. CARDIOVASCULAR: Regular rate and rhythm. No murmurs, rubs, or gallops. LUNGS: Decreased breath sounds at the bases. ABDOMEN: Soft, nontender, nondistended. NEUROLOGIC: Intact. Alert and oriented to person, place, and time. Normal affect. EXTREMITIES: Warm, well perfused. No lower extremity edema. INPATIENT MEDICATIONS: Reviewed. LABORATORY DATA: Reviewed. Creatinine has improved since admission with some IV fluids and stopping his blood pressure medicines. TELEMETRY DATA: Reviewed personally by me, shows ventricularly paced rhythm. ASSESSMENT: 1. Coronary artery disease. 2. Chronic systolic congestive heart failure. 3. Hypotension. 4. Acute kidney injury on chronic kidney disease. PLAN: The patient is doing much better from a cardiovascular standpoint. Blood pressure is stable. No longer orthostatic or tachycardic. The patient is insisting on going home. He is okay to go home from cardiovascular standpoint. Hold all blood pressure medicines except for metoprolol succinate 25 mg daily. Continue aspirin and statin. The patient will follow up with either his primary care doctor or our office on Saturday for lab check. Thank you for this consult. We will continue to follow. MD GIL Gill/[facility] /[id number]
[2020-06-23] MEDS ORDERED: ROPINIROLE HCL 1 MG TAB PO SCH (21:00)
[2020-06-23] MEDS ORDERED: SIMVASTATIN 40 MG TAB PO SCH (21:00)
== END 2020-06-23 13:51 | disposition home or self-care (01) | DRG 292 ==
LOC: ER 14:56 → ERHOLD 15:50 → MED/SURG 16:55
PROVIDERS: ADMIT Internal Medicine; ATTEND Internal Medicine
DX: I13.0 Hypertensive heart and chronic kidney disease with heart failure and stage 1 through stage 4 chronic kidney disease, or unspecified chronic kidney disease (principal); I50.22 Chronic systolic (congestive) heart failure; N17.9 Acute kidney failure, unspecified; I25.10 Atherosclerotic heart disease of native coronary artery without angina pectoris; E78.5 Hyperlipidemia, unspecified; N18.9 Chronic kidney disease, unspecified; Z20.828 Contact with and (suspected) exposure to other viral communicable diseases; Z95.0 Presence of cardiac pacemaker
CPT/HCPCS: 36415; 71045; 71046; 80048; 80053; 81001; 83605; 83880; 84484; 85025; 93005; 99284; J7120; J7121; U0002

== ENCOUNTER 2020-08-11 21:39 | Inpatient (IN) | payer MEDICARE, OTHER ==
[~2020-08-11] VITALS: Ht 172.7 cm; Wt 79.5 kg
[~2020-08-11 21:39] MED LIST changes: +ALLOPURINOL300 MG PO; +ENTRESTO 24 MG1 EACH PO; +FISH OIL 1,0001 EAC2; +SINGULAIR10 MG PO; +TRAZODONE HCL50 MG PO
[2020-08-11 22:58] LABS: BASOPHILS # (AUTO) 0.1 (0.0-0.1); BASOPHILS % 0.3 % (0.0-1.0); EOSINOPHILS # (AUTO) 0.2 (0.0-0.4); EOSINOPHILS % 1.3 % (0.0-6.0); HEMATOCRIT 32.2 % (38.2-49.6); HEMOGLOBIN 10.3 g/dL (14.0-18.0); LYMPHOCYTES # (AUTO) 0.7 (1.0-3.2); LYMPHOCYTES % 3.6 % (18.0-39.1); MEAN CORPUSCULAR HEMOGLOBIN 30.1 pg (28-32); MEAN CORPUSCULAR VOLUME 94.2 fL (81-99); MONOCYTES % 5.4 % (4.4-11.3); NEUTROPHILS # (AUTO) 16.2 (2.1-6.9); NEUTROPHILS % 88.6 % (38.7-80.0); PLATELET COUNT 256 x10e3/uL (140-360); RED BLOOD COUNT 3.42 x10e6/uL (4.3-5.7); RED CELL DISTRIBUTION WIDTH 18.6 % (11.7-14.4)
[2020-08-11 23:08] LABS: INR 1.05; PROTHROMBIN TIME 14.4 seconds (11.9-14.5)
[2020-08-11 23:18] LABS: ALBUMIN 3.7 g/dL (3.5-5.0); ANION GAP 19.2 mmol/L (8-16); CALCIUM 9.4 mg/dL (8.4-10.2); CREATININE, SERUM 1.65 mg/dL (0.72-1.25); POTASSIUM 4.2 mmol/L (3.5-5.1)
[2020-08-11 23:20] LABS: CREATINE KINASE MB 2.6 ng/mL (0-5.0)
[2020-08-12] VITALS (8 sets, daily range): BP systolic 99–129; BP diastolic 68–78
[2020-08-12] MEDS ORDERED: ASPIRIN 81 MG CHEW TAB PO ONE (02:00)
[2020-08-12] MEDS ORDERED: KETOROLAC TROMETHAMINE 30 MG/ML VIAL IV STA (02:02)
[2020-08-12] MEDS ORDERED: TRAZODONE HCL 50 MG TAB PO PRN (04:00)
[2020-08-12] MEDS ORDERED: METOLAZONE 5 MG TAB PO SCH (04:00)
[2020-08-12] MEDS ORDERED: PROPRANOLOL HCL 10 MG TAB PO PRN (04:00)
[2020-08-12] MEDS ORDERED: BUSPIRONE HCL 5 MG TAB PO PRN (04:00)
[2020-08-12] MEDS ORDERED: K DUR10 MEQ PO (04:07)
[2020-08-12] MEDS ORDERED: PRAMIPEXOLE D0.25 MG PO ×2 (04:13)
[2020-08-12] MEDS ORDERED: ONDANSETRON HCL4 MG PO (04:28)
[2020-08-12] MEDS ORDERED: TRAZODONE HCL50 MG PO (04:29)
[2020-08-12] MEDS ORDERED: MIDODRINE HCL2.5 MG PO (04:35)
[2020-08-12] MEDS ORDERED: BRILINTA90 MG PO (04:35)
[2020-08-12] MEDS ORDERED: MELATONIN3 MG PO (04:35)
[2020-08-12] MEDS ORDERED: MIDODRINE 2.5 MG TAB PO PRN (04:45)
[2020-08-12] MEDS: MORPHINE SULFATE INJ 2 MG/ML SYR IV PRN ×3 (04:52→20:42)
[2020-08-12] MEDS: ONDANSETRON HCL INJ 2MG/ML 2ML 2 MG/ML VIAL IV PRN ×2 (04:52→20:42)
[2020-08-12] MEDS ORDERED: CARBAMAZEPINE 200 MG TAB PO SCH (06:00)
[2020-08-12] MEDS ORDERED: SODIUM CHLORIDE 0.9% 250ML 250 ML ONE (06:00)
[2020-08-12] MEDS: CEFTRIAXONE SOD 1 GM/NS 50 ML 50 ML IV SCH (06:01)
[2020-08-12] MEDS: FUROSEMIDE INJ 10 MG/ML 2 ML VIAL IV SCH ×2 (06:01→17:05)
[2020-08-12 08:11] LABS: CREATINE KINASE MB 2.7 ng/mL (0-5.0)
[2020-08-12] MEDS: POTASSIUM CHLORIDE 10MEQ EA PO SCH ×2 (08:56→16:43)
[2020-08-12] MEDS: BUSPIRONE HCL 5 MG TAB PO SCH ×2 (08:57→16:41)
[2020-08-12] MEDS: TICAGRELOR 90 MG TABLET PO SCH (08:57)
[2020-08-12] MEDS: MONTELUKAST SODIUM 10 MG TAB PO SCH (08:57)
[2020-08-12] MEDS: ALLOPURINOL 300 MG TAB PO SCH (08:58)
[2020-08-12] MEDS: CARBAMAZEPINE 200 MG TAB PO SCH ×3 (08:58→20:23)
[2020-08-12] MEDS ORDERED: METOPROLOL SUCCINATE 25 MG TAB XL PO SCH (09:00)
[2020-08-12] MEDS ORDERED: ASPIRIN 325 MG TAB PO SCH (09:00)
[2020-08-12] MEDS: HYDROCODONE/APAP 10MG-325MG TAB PO PRN ×3 (09:30→23:18)
[2020-08-12] MEDS: ACETAMINOPHEN 325 MG TAB PO PRN (12:54)
[2020-08-12 15:23] LABS: CREATINE KINASE MB 2.6 ng/mL (0-5.0)
[2020-08-12] MEDS: PRAMIPEXOLE DIHYDROCHLORIDE 0.25 MG TAB PO SCH (16:41)
[2020-08-12] MEDS: METOPROLOL TARTRATE 25 MG TAB PO SCH (18:00)
[2020-08-12] MEDS: SIMVASTATIN 40 MG TAB PO SCH (20:23)
[2020-08-12] MEDS ORDERED: ROPINIROLE HCL 1 MG TAB PO SCH (21:00)
[2020-08-12] MEDS: ALPRAZOLAM 0.25 MG TAB PO PRN (23:18)
[2020-08-13] VITALS (14 sets, daily range): BP systolic 100–128; BP diastolic 62–89
[2020-08-13] MEDS: HYDROMORPHONE 1MG/1ML INJ IV PRN ×3 (01:15→10:10)
[2020-08-13] MEDS: ONDANSETRON HCL INJ 2MG/ML 2ML 2 MG/ML VIAL IV PRN ×3 (01:15→21:56)
[2020-08-13] MEDS: CEFTRIAXONE SOD 1 GM/NS 50 ML 50 ML IV SCH (06:33)
[2020-08-13] MEDS: FUROSEMIDE INJ 10 MG/ML 2 ML VIAL IV SCH ×2 (06:33→18:17)
[2020-08-13 06:57] LABS: BASOPHILS # (AUTO) 0.1 (0.0-0.1); BASOPHILS % 0.4 % (0.0-1.0); EOSINOPHILS # (AUTO) 0.1 (0.0-0.4); HEMATOCRIT 33.7 % (38.2-49.6); HEMOGLOBIN 10.6 g/dL (14.0-18.0); LYMPHOCYTES # (AUTO) 0.5 (1.0-3.2); LYMPHOCYTES % 3.5 % (18.0-39.1); MEAN CORPUSCULAR HEMOGLOBIN 30.5 pg (28-32); MEAN CORPUSCULAR HGB CONC 31.5 g/dL (31-35); MEAN CORPUSCULAR VOLUME 97.1 fL (81-99); MONOCYTES # (AUTO) 0.8 (0.2-0.8); MONOCYTES % 5.9 % (4.4-11.3); NEUTROPHILS # (AUTO) 12.1 (2.1-6.9); NEUTROPHILS % 88.6 % (38.7-80.0); PLATELET COUNT 187 x10e3/uL (140-360); RED BLOOD COUNT 3.47 x10e6/uL (4.3-5.7)
[2020-08-13 07:18] LABS: ALBUMIN 3.6 g/dL (3.5-5.0); ANION GAP 16.1 mmol/L (8-16); CALCIUM 9.3 mg/dL (8.4-10.2); CREATININE, SERUM 1.34 mg/dL (0.72-1.25); POTASSIUM 4.1 mmol/L (3.5-5.1)
[2020-08-13] MEDS: HYDROCODONE/APAP 10MG-325MG TAB PO PRN ×2 (07:25→23:48)
[2020-08-13] MEDS: AZITHROMYCIN 500MG/NS 250 ML 250 ML IV SCH (08:30)
[2020-08-13] MEDS: ALLOPURINOL 300 MG TAB PO SCH (08:43)
[2020-08-13] MEDS: MONTELUKAST SODIUM 10 MG TAB PO SCH (08:43)
[2020-08-13] MEDS: METOPROLOL TARTRATE 25 MG TAB PO SCH ×2 (08:43→16:38)
[2020-08-13] MEDS: CARBAMAZEPINE 200 MG TAB PO SCH ×3 (08:43→21:48)
[2020-08-13] MEDS: BUSPIRONE HCL 5 MG TAB PO SCH ×2 (08:43→16:37)
[2020-08-13] MEDS: TICAGRELOR 90 MG TABLET PO SCH (08:43)
[2020-08-13] MEDS: POTASSIUM CHLORIDE 10MEQ EA PO SCH ×2 (08:43→16:38)
[2020-08-13] MEDS: NEOMYCIN/POLYMYX/BACITR OINT 0.9 GM PKT TOP SCH (10:10)
[2020-08-13] MEDS ORDERED: LORAZEPAM INJ 2 MG/ML VIAL IV ONE (12:00)
[2020-08-13] MEDS ORDERED: MIDAZOLAM HCL 2 MG/2 ML VIAL ONE (13:21)
[2020-08-13] MEDS ORDERED: ETOMIDATE 2 MG/ML 10 ML INJ IV ONE (13:21)
[2020-08-13] MEDS ORDERED: SUCCINYLCHOLINE CHLORIDE 20 MG/ML 10ML VIAL ONE (13:21)
[2020-08-13] MEDS ORDERED: FUROSEMIDE INJ 10 MG/ML 2 ML VIAL IV ONE (14:00)
[2020-08-13] MEDS: MORPHINE SULFATE INJ 4 MG/ML INJ 1ML IV PRN ×2 (16:14→21:56)
[2020-08-13] MEDS: PRAMIPEXOLE DIHYDROCHLORIDE 0.25 MG TAB PO SCH ×2 (16:38)
[2020-08-13] MEDS: SIMVASTATIN 40 MG TAB PO SCH (21:48)
[2020-08-14] VITALS (7 sets, daily range): BP systolic 85–130; BP diastolic 65–107
[2020-08-14] MEDS: ALPRAZOLAM 0.25 MG TAB PO PRN ×4 (01:30→19:33)
[2020-08-14] MEDS: ONDANSETRON HCL INJ 2MG/ML 2ML 2 MG/ML VIAL IV PRN ×2 (02:07→17:36)
[2020-08-14] MEDS: MORPHINE SULFATE INJ 4 MG/ML INJ 1ML IV PRN ×2 (02:07→17:36)
[2020-08-14] MEDS ORDERED: SODIUM CHLORIDE 0.9% 250ML 250 ML ONE (05:40)
[2020-08-14] MEDS: CEFTRIAXONE SOD 1 GM/NS 50 ML 50 ML IV SCH (05:42)
[2020-08-14] MEDS: FUROSEMIDE INJ 10 MG/ML 2 ML VIAL IV SCH ×2 (06:00→16:41)
[2020-08-14] MEDS: HYDROCODONE/APAP 10MG-325MG TAB PO PRN ×3 (08:47→19:33)
[2020-08-14] MEDS: TICAGRELOR 90 MG TABLET PO SCH (08:59)
[2020-08-14] MEDS: MONTELUKAST SODIUM 10 MG TAB PO SCH (08:59)
[2020-08-14] MEDS: ALLOPURINOL 300 MG TAB PO SCH (08:59)
[2020-08-14] MEDS: BUSPIRONE HCL 5 MG TAB PO SCH ×2 (08:59→16:33)
[2020-08-14] MEDS: CARBAMAZEPINE 200 MG TAB PO SCH ×3 (09:00→19:22)
[2020-08-14] MEDS: METOPROLOL TARTRATE 25 MG TAB PO SCH ×2 (09:00→16:41)
[2020-08-14] MEDS: AZITHROMYCIN 500MG/NS 250 ML 250 ML IV SCH (09:10)
[2020-08-14] MEDS: POTASSIUM CHLORIDE 10MEQ EA PO SCH ×2 (09:10→16:40)
[2020-08-14 09:12] LABS: BASOPHILS % 0.1 % (0.0-1.0); EOSINOPHILS # (AUTO) 0.1 (0.0-0.4); EOSINOPHILS % 0.7 % (0.0-6.0); HEMATOCRIT 30.8 % (38.2-49.6); HEMOGLOBIN 9.8 g/dL (14.0-18.0); LYMPHOCYTES # (AUTO) 0.5 (1.0-3.2); MEAN CORPUSCULAR HEMOGLOBIN 30.4 pg (28-32); MEAN CORPUSCULAR HGB CONC 31.8 g/dL (31-35); MEAN CORPUSCULAR VOLUME 95.7 fL (81-99); MONOCYTES # (AUTO) 1.1 (0.2-0.8); MONOCYTES % 7.2 % (4.4-11.3); NEUTROPHILS # (AUTO) 13.4 (2.1-6.9); NEUTROPHILS % 88.3 % (38.7-80.0); PLATELET COUNT 186 x10e3/uL (140-360); RED BLOOD COUNT 3.22 x10e6/uL (4.3-5.7); RED CELL DISTRIBUTION WIDTH 18.9 % (11.7-14.4)
[2020-08-14 09:35] LABS: ALBUMIN 3.2 g/dL (3.5-5.0); ANION GAP 16.7 mmol/L (8-16); CALCIUM 8.5 mg/dL (8.4-10.2); CREATININE, SERUM 1.24 mg/dL (0.72-1.25); POTASSIUM 3.7 mmol/L (3.5-5.1)
[2020-08-14] MEDS: FUROSEMIDE 20 MG TAB PO SCH (10:23)
[2020-08-14] MEDS: NEOMYCIN/POLYMYX/BACITR OINT 0.9 GM PKT TOP SCH (10:23)
[2020-08-14] MEDS: PRAMIPEXOLE DIHYDROCHLORIDE 0.25 MG TAB PO SCH ×2 (16:41)
[2020-08-14] MEDS ORDERED: ROPINIROLE HCL 0.25 MG TAB PO SCH (17:00)
[2020-08-14] MEDS: SIMVASTATIN 40 MG TAB PO SCH (19:23)
[2020-08-14] MEDS: TRAZODONE HCL 50 MG TAB PO PRN (19:32)
[2020-08-15] MEDS: PRAMIPEXOLE DIHYDROCHLORIDE 0.25 MG TAB PO SCH
[2020-08-15] MEDS: MORPHINE SULFATE INJ 4 MG/ML INJ 1ML IV PRN ×5 (00:40→18:05)
[2020-08-15] MEDS: ONDANSETRON HCL INJ 2MG/ML 2ML 2 MG/ML VIAL IV PRN ×5 (00:40→18:05)
[2020-08-15] MEDS: ALPRAZOLAM 0.25 MG TAB PO PRN ×3 (02:16→16:10)
[2020-08-15 03:55] VITALS: BP 127/74
[2020-08-15 05:12] LABS: BASOPHILS % 0.2 % (0.0-1.0); EOSINOPHILS % 0.2 % (0.0-6.0); HEMATOCRIT 31.5 % (38.2-49.6); HEMOGLOBIN 10.1 g/dL (14.0-18.0); LYMPHOCYTES # (AUTO) 0.4 (1.0-3.2); MEAN CORPUSCULAR HEMOGLOBIN 30.9 pg (28-32); MEAN CORPUSCULAR HGB CONC 32.1 g/dL (31-35); MEAN CORPUSCULAR VOLUME 96.3 fL (81-99); MONOCYTES # (AUTO) 1.4 (0.2-0.8); MONOCYTES % 7.8 % (4.4-11.3); NEUTROPHILS # (AUTO) 16.1 (2.1-6.9); NEUTROPHILS % 89.2 % (38.7-80.0); PLATELET COUNT 201 x10e3/uL (140-360); RED BLOOD COUNT 3.27 x10e6/uL (4.3-5.7); RED CELL DISTRIBUTION WIDTH 19.2 % (11.7-14.4)
[2020-08-15] MEDS: CEFTRIAXONE SOD 1 GM/NS 50 ML 50 ML IV SCH (05:14)
[2020-08-15 05:33] LABS: ANION GAP 20.1 mmol/L (8-16); CALCIUM 8.7 mg/dL (8.4-10.2); CREATININE, SERUM 1.54 mg/dL (0.72-1.25); POTASSIUM 4.1 mmol/L (3.5-5.1)
[2020-08-15] MEDS: FUROSEMIDE INJ 10 MG/ML 2 ML VIAL IV SCH ×2 (05:50→16:25)
[2020-08-15] MEDS: AZITHROMYCIN 500MG/NS 250 ML 250 ML IV SCH (07:45)
[2020-08-15 07:53] VITALS: BP 102/69
[2020-08-15 08:17] VITALS: BP 102/69
[2020-08-15] MEDS: CARBAMAZEPINE 200 MG TAB PO SCH ×3 (09:00→21:00)
[2020-08-15] MEDS: FUROSEMIDE 20 MG TAB PO SCH (09:00)
[2020-08-15] MEDS: BUSPIRONE HCL 5 MG TAB PO SCH ×2 (09:00→16:24)
[2020-08-15] MEDS: TICAGRELOR 90 MG TABLET PO SCH (09:00)
[2020-08-15] MEDS: ALLOPURINOL 300 MG TAB PO SCH (09:00)
[2020-08-15] MEDS: MONTELUKAST SODIUM 10 MG TAB PO SCH (09:00)
[2020-08-15] MEDS: NEOMYCIN/POLYMYX/BACITR OINT 0.9 GM PKT TOP SCH (09:00)
[2020-08-15] MEDS: LIDOCAINE 4% PATCH TP SCH (09:00)
[2020-08-15] MEDS: POTASSIUM CHLORIDE 10MEQ EA PO SCH ×2 (09:00→16:24)
[2020-08-15] MEDS: METOPROLOL TARTRATE 25 MG TAB PO SCH ×2 (09:00→16:25)
[2020-08-15] MEDS: HYDROCODONE/APAP 10MG-325MG TAB PO PRN ×2 (10:30→16:09)
[2020-08-15 12:00] VITALS: BP 126/78
[2020-08-15 19:50] VITALS: BP 89/35
[2020-08-15 21:00] VITALS: BP 89/35
[2020-08-15] MEDS: SIMVASTATIN 40 MG TAB PO SCH (21:00)
[2020-08-16] VITALS (8 sets, daily range): BP systolic 90–123; BP diastolic 55–95
[2020-08-16] MEDS: HYDROCODONE/APAP 10MG-325MG TAB PO PRN (04:00)
[2020-08-16] MEDS: ALPRAZOLAM 0.25 MG TAB PO PRN ×2 (04:00→12:57)
[2020-08-16] MEDS: CEFTRIAXONE SOD 1 GM/NS 50 ML 50 ML IV SCH (04:30)
[2020-08-16 05:25] LABS: BASOPHILS % 0.1 % (0.0-1.0); EOSINOPHILS # (AUTO) 0.1 (0.0-0.4); EOSINOPHILS % 0.2 % (0.0-6.0); HEMATOCRIT 31.7 % (38.2-49.6); HEMOGLOBIN 10.4 g/dL (14.0-18.0); LYMPHOCYTES # (AUTO) 0.4 (1.0-3.2); LYMPHOCYTES % 1.7 % (18.0-39.1); MEAN CORPUSCULAR HEMOGLOBIN 31.5 pg (28-32); MEAN CORPUSCULAR HGB CONC 32.8 g/dL (31-35); MEAN CORPUSCULAR VOLUME 96.1 fL (81-99); MONOCYTES # (AUTO) 1.6 (0.2-0.8); MONOCYTES % 7.1 % (4.4-11.3); NEUTROPHILS # (AUTO) 19.7 (2.1-6.9); NEUTROPHILS % 90.1 % (38.7-80.0); PLATELET COUNT 228 x10e3/uL (140-360); RED CELL DISTRIBUTION WIDTH 19.8 % (11.7-14.4)
[2020-08-16 05:48] LABS: ALBUMIN 3.4 g/dL (3.5-5.0); ALBUMIN/GLOBULIN RATIO 1.1 (0.8-2.0); ANION GAP 20.8 mmol/L (8-16); CALCIUM 9.2 mg/dL (8.4-10.2); CREATININE, SERUM 2.19 mg/dL (0.72-1.25); MAGNESIUM 2.2 MG/DL (1.3-2.1); POTASSIUM 4.8 mmol/L (3.5-5.1)
[2020-08-16] MEDS: AZITHROMYCIN 500MG/NS 250 ML 250 ML IV SCH (07:45)
[2020-08-16] MEDS: LIDOCAINE 4% PATCH TP SCH (09:00)
[2020-08-16] MEDS: FUROSEMIDE 20 MG TAB PO SCH (09:00)
[2020-08-16] MEDS: METOPROLOL TARTRATE 25 MG TAB PO SCH ×2 (09:00→17:00)
[2020-08-16] MEDS: POTASSIUM CHLORIDE 10MEQ EA PO SCH ×2 (09:00→17:00)
[2020-08-16] MEDS: TICAGRELOR 90 MG TABLET PO SCH (09:00)
[2020-08-16] MEDS: MONTELUKAST SODIUM 10 MG TAB PO SCH (09:00)
[2020-08-16] MEDS: BUSPIRONE HCL 5 MG TAB PO SCH ×2 (09:00→17:00)
[2020-08-16] MEDS: CARBAMAZEPINE 200 MG TAB PO SCH ×3 (09:00→20:26)
[2020-08-16] MEDS: ALLOPURINOL 300 MG TAB PO SCH (13:55)
[2020-08-16] MEDS: NEOMYCIN/POLYMYX/BACITR OINT 0.9 GM PKT TOP SCH (13:57)
[2020-08-16] MEDS ORDERED: ALPRAZOLAM 0.25 MG TAB PO PRN (19:15)
[2020-08-16] MEDS: SIMVASTATIN 40 MG TAB PO SCH (20:26)
[2020-08-16] MEDS: RISPERIDONE 0.5 MG TAB PO PRN (20:26)
[2020-08-16] MEDS: TRAZODONE HCL 50 MG TAB PO PRN (20:26)
[2020-08-17] VITALS (8 sets, daily range): BP systolic 102–114; BP diastolic 61–80
[2020-08-17] MEDS: CEFTRIAXONE SOD 1 GM/NS 50 ML 50 ML IV SCH ×2 (04:53→20:42)
[2020-08-17 05:21] LABS: BASOPHILS # (AUTO) 0.1 (0.0-0.1); BASOPHILS % 0.3 % (0.0-1.0); EOSINOPHILS # (AUTO) 0.1 (0.0-0.4); EOSINOPHILS % 0.5 % (0.0-6.0); HEMATOCRIT 31.5 % (38.2-49.6); HEMOGLOBIN 10.2 g/dL (14.0-18.0); LYMPHOCYTES # (AUTO) 0.3 (1.0-3.2); LYMPHOCYTES % 1.7 % (18.0-39.1); MEAN CORPUSCULAR HEMOGLOBIN 30.4 pg (28-32); MEAN CORPUSCULAR HGB CONC 32.4 g/dL (31-35); MONOCYTES # (AUTO) 1.2 (0.2-0.8); MONOCYTES % 6.1 % (4.4-11.3); NEUTROPHILS # (AUTO) 18.2 (2.1-6.9); NEUTROPHILS % 90.8 % (38.7-80.0); PLATELET COUNT 192 x10e3/uL (140-360); RED BLOOD COUNT 3.35 x10e6/uL (4.3-5.7); RED CELL DISTRIBUTION WIDTH 20.7 % (11.7-14.4)
[2020-08-17 05:48] LABS: ALBUMIN 3.2 g/dL (3.5-5.0); CALCIUM 8.4 mg/dL (8.4-10.2); CREATININE, SERUM 1.76 mg/dL (0.72-1.25); MAGNESIUM 2.1 MG/DL (1.3-2.1)
[2020-08-17] MEDS: FUROSEMIDE 20 MG TAB PO SCH (07:27)
[2020-08-17] MEDS: POTASSIUM CHLORIDE 10MEQ EA PO SCH (07:27)
[2020-08-17] MEDS: METOPROLOL TARTRATE 25 MG TAB PO SCH ×2 (07:29→18:28)
[2020-08-17] MEDS: CARBAMAZEPINE 200 MG TAB PO SCH (07:29)
[2020-08-17] MEDS: MONTELUKAST SODIUM 10 MG TAB PO SCH (07:29)
[2020-08-17] MEDS: ALLOPURINOL 300 MG TAB PO SCH (07:30)
[2020-08-17] MEDS: TICAGRELOR 90 MG TABLET PO SCH (07:33)
[2020-08-17] MEDS: BUSPIRONE HCL 5 MG TAB PO SCH ×2 (07:33→17:00)
[2020-08-17] MEDS: LIDOCAINE 4% PATCH TP SCH (09:00)
[2020-08-17] MEDS: AZITHROMYCIN 500MG/NS 250 ML 250 ML IV SCH (09:00)
[2020-08-17] MEDS: NEOMYCIN/POLYMYX/BACITR OINT 0.9 GM PKT TOP SCH (11:17)
[2020-08-17 15:07] LABS: AMYLASE 77 U/L (25-125); LIPASE 46 U/L (8-78)
[2020-08-17] MEDS ORDERED: VANCOMYCIN 1GM/NS 250 ML 250 ML IV ONE (17:00)
[2020-08-17] MEDS: ONDANSETRON HCL INJ 2MG/ML 2ML 2 MG/ML VIAL IV PRN (17:52)
[2020-08-17 17:59] LABS: INR 1.39
[2020-08-17] MEDS: DEXTROSE 5%/0.45% SOD CHL 1,000 ML IV SCH (18:29)
[2020-08-18] VITALS (8 sets, daily range): BP systolic 19–111; BP diastolic 53–91
[2020-08-18 05:01] LABS: BASOPHILS % 0.1 % (0.0-1.0); EOSINOPHILS # (AUTO) 0.2 (0.0-0.4); HEMATOCRIT 32.1 % (38.2-49.6); HEMOGLOBIN 10.2 g/dL (14.0-18.0); LYMPHOCYTES # (AUTO) 0.3 (1.0-3.2); LYMPHOCYTES % 1.9 % (18.0-39.1); MEAN CORPUSCULAR HEMOGLOBIN 31.1 pg (28-32); MEAN CORPUSCULAR HGB CONC 31.8 g/dL (31-35); MEAN CORPUSCULAR VOLUME 97.9 fL (81-99); MONOCYTES # (AUTO) 1.2 (0.2-0.8); MONOCYTES % 7.5 % (4.4-11.3); NEUTROPHILS # (AUTO) 14.7 (2.1-6.9); PLATELET COUNT 203 x10e3/uL (140-360); RED BLOOD COUNT 3.28 x10e6/uL (4.3-5.7)
[2020-08-18 05:24] LABS: ALBUMIN 2.9 g/dL (3.5-5.0); ALBUMIN/GLOBULIN RATIO 0.9 (0.8-2.0); ANION GAP 17.7 mmol/L (8-16); CALCIUM 8.5 mg/dL (8.4-10.2); CREATININE, SERUM 1.29 mg/dL (0.72-1.25); POTASSIUM 3.7 mmol/L (3.5-5.1)
[2020-08-18] MEDS: DEXTROSE 5%/0.45% SOD CHL 1,000 ML IV SCH (09:15)
[2020-08-18] MEDS: TICAGRELOR 90 MG TABLET PO SCH (09:22)
[2020-08-18] MEDS: BUSPIRONE HCL 5 MG TAB PO SCH ×2 (09:22→16:57)
[2020-08-18] MEDS: RIVASTIGMINE PATCH 4.6MG/24 HOURS PATCH TD SCH (09:22)
[2020-08-18] MEDS: METOPROLOL TARTRATE 25 MG TAB PO SCH ×2 (09:22→16:58)
[2020-08-18] MEDS: NEOMYCIN/POLYMYX/BACITR OINT 0.9 GM PKT TOP SCH (09:23)
[2020-08-18] MEDS: LIDOCAINE 4% PATCH TP SCH (09:23)
[2020-08-18] MEDS: ALPRAZOLAM 0.25 MG TAB PO PRN (10:57)
[2020-08-18] MEDS: HYDROCODONE/APAP 10MG-325MG TAB PO PRN ×2 (13:40→19:50)
[2020-08-18 15:24] LABS: CLARITY,URINE CLEAR (CLEAR); COLOR,URINE YELLOW (YELLOW)
[2020-08-18 15:25] LABS: KETONES,URINE NEGATIVE (NEGATIVE); LEUKOCYTE ESTERASE ,URINE TRACE (NEGATIVE); NITRITE,URINE NEGATIVE (NEGATIVE); PROTEIN,URINE DIPSTICK NEGATIVE (NEGATIVE)
[2020-08-18 15:28] LABS: BACTERIA,URINE FEW /HPF; RBC,URINE 0-5 /HPF (0-5); WBC,URINE (MAN) 0-5 /HPF (0-5)
[2020-08-18 15:29] LABS: EPITHELIAL CELLS,URINE RARE /LPF
[2020-08-18] MEDS ORDERED: DEXTROSE 5% 1,000 ML IV ONE (16:15)
[2020-08-18] MEDS: MORPHINE SULFATE INJ 4 MG/ML INJ 1ML IV PRN (17:00)
[2020-08-18] MEDS: CEFTRIAXONE SOD 1 GM/NS 50 ML 50 ML IV SCH (18:07)
[2020-08-18] MEDS: LORAZEPAM INJ 2 MG/ML VIAL IV PRN (21:40)
[2020-08-19] VITALS (7 sets, daily range): BP systolic 105–145; BP diastolic 57–95
[2020-08-19] MEDS: MORPHINE SULFATE INJ 4 MG/ML INJ 1ML IV PRN ×3 (00:50→21:38)
[2020-08-19] MEDS: LORAZEPAM INJ 2 MG/ML VIAL IV PRN ×2 (04:24→12:34)
[2020-08-19 05:23] LABS: BASOPHILS % 0.2 % (0.0-1.0); EOSINOPHILS # (AUTO) 0.5 (0.0-0.4); HEMOGLOBIN 10.3 g/dL (14.0-18.0); LYMPHOCYTES # (AUTO) 0.6 (1.0-3.2); LYMPHOCYTES % 3.7 % (18.0-39.1); MEAN CORPUSCULAR HEMOGLOBIN 30.6 pg (28-32); MEAN CORPUSCULAR HGB CONC 31.2 g/dL (31-35); MEAN CORPUSCULAR VOLUME 97.9 fL (81-99); MONOCYTES # (AUTO) 1.4 (0.2-0.8); MONOCYTES % 8.4 % (4.4-11.3); NEUTROPHILS # (AUTO) 13.7 (2.1-6.9); NEUTROPHILS % 84.3 % (38.7-80.0); PLATELET COUNT 152 x10e3/uL (140-360); RED BLOOD COUNT 3.37 x10e6/uL (4.3-5.7); RED CELL DISTRIBUTION WIDTH 21.3 % (11.7-14.4)
[2020-08-19 05:55] LABS: ALANINE AMINOTRANSFERASE 434 IU/L (0-55); ALBUMIN 2.9 g/dL (3.5-5.0); ALBUMIN/GLOBULIN RATIO 0.9 (0.8-2.0); ALKALINE PHOSPHATASE 124 IU/L (40-150); ANION GAP 15.5 mmol/L (8-16); BLOOD UREA NITROGEN 36 mg/dL (7-26); BUN/CREATININE RATIO 39 (6-25); CALCIUM 8.1 mg/dL (8.4-10.2); CARBON DIOXIDE 27 mmol/L (22-29); CHLORIDE 101 mmol/L (98-107); CREATININE, SERUM 0.92 mg/dL (0.72-1.25); EST GLOMERULAR FILTRATION RATE > 60 ML/MIN (60-); GLUCOSE 106 mg/dL (74-118); POTASSIUM 3.5 mmol/L (3.5-5.1); SODIUM 140 mmol/L (136-145)
[2020-08-19] MEDS: METOPROLOL TARTRATE 25 MG TAB PO SCH ×2 (09:00→17:22)
[2020-08-19] MEDS: BUSPIRONE HCL 5 MG TAB PO SCH ×2 (10:03→17:21)
[2020-08-19] MEDS: TICAGRELOR 90 MG TABLET PO SCH (10:03)
[2020-08-19] MEDS: LIDOCAINE 4% PATCH TP SCH (10:04)
[2020-08-19] MEDS: NEOMYCIN/POLYMYX/BACITR OINT 0.9 GM PKT TOP SCH (10:04)
[2020-08-19] MEDS: RIVASTIGMINE PATCH 4.6MG/24 HOURS PATCH TD SCH (10:04)
[2020-08-19] MEDS ORDERED: SODIUM CHLORIDE 0.9% 500ML 500 ML ONE (13:19)
[2020-08-19] MEDS: ACETAMINOPHEN 325 MG TAB PO PRN (15:51)
[2020-08-19] MEDS: CEFTRIAXONE SOD 1 GM/NS 50 ML 50 ML IV SCH (17:22)
[2020-08-19] MEDS: ALPRAZOLAM 0.25 MG TAB PO PRN (18:32)
[2020-08-20] VITALS (11 sets, daily range): BP systolic 97–144; BP diastolic 55–92
[2020-08-20] MEDS: ALPRAZOLAM 0.25 MG TAB PO PRN ×3 (01:09→20:49)
[2020-08-20] MEDS: MORPHINE SULFATE INJ 4 MG/ML INJ 1ML IV PRN (03:43)
[2020-08-20] MEDS: LIDOCAINE 4% PATCH TP SCH (08:15)
[2020-08-20] MEDS: BUSPIRONE HCL 5 MG TAB PO SCH ×2 (08:15→17:07)
[2020-08-20] MEDS: METOPROLOL TARTRATE 25 MG TAB PO SCH ×2 (08:15→17:07)
[2020-08-20] MEDS: RIVASTIGMINE PATCH 4.6MG/24 HOURS PATCH TD SCH (08:15)
[2020-08-20] MEDS: TICAGRELOR 90 MG TABLET PO SCH (08:15)
[2020-08-20] MEDS: RISPERIDONE 0.5 MG TAB PO PRN ×3 (08:16→20:49)
[2020-08-20] MEDS: ACETAMINOPHEN 325 MG TAB PO PRN ×2 (08:16→17:08)
[2020-08-20] MEDS: LORAZEPAM INJ 2 MG/ML VIAL IV PRN ×2 (10:49→22:45)
[2020-08-20] MEDS ORDERED: FUROSEMIDE INJ 10 MG/ML 2 ML VIAL IV NR ×2 (11:30→12:15)
[2020-08-20] MEDS: CEFTRIAXONE SOD 1 GM/NS 50 ML 50 ML IV SCH (17:07)
[2020-08-20] MEDS: FUROSEMIDE 20 MG TAB PO SCH (17:07)
[2020-08-21] VITALS (15 sets, daily range): BP systolic 75–129; BP diastolic 58–89
[2020-08-21] MEDS ORDERED: ZIPRASIDONE 20 MG VIAL IM STA (01:01)
[2020-08-21] MEDS: ALPRAZOLAM 0.25 MG TAB PO PRN (03:06)
[2020-08-21] MEDS: ACETAMINOPHEN 325 MG TAB PO PRN (03:06)
[2020-08-21] MEDS: LORAZEPAM INJ 2 MG/ML VIAL IV PRN ×2 (04:55→13:08)
[2020-08-21] MEDS: TICAGRELOR 90 MG TABLET PO SCH (10:23)
[2020-08-21] MEDS: FUROSEMIDE 20 MG TAB PO SCH (10:23)
[2020-08-21] MEDS: BUSPIRONE HCL 5 MG TAB PO SCH ×2 (10:23→16:30)
[2020-08-21] MEDS: METOPROLOL TARTRATE 25 MG TAB PO SCH ×2 (10:24→16:30)
[2020-08-21] MEDS: RIVASTIGMINE PATCH 4.6MG/24 HOURS PATCH TD SCH (10:24)
[2020-08-21] MEDS: LIDOCAINE 4% PATCH TP SCH (10:24)
[2020-08-21] MEDS ORDERED: FUROSEMIDE INJ 10 MG/ML 4 ML VIAL ONE (15:13)
[2020-08-21] MEDS ORDERED: FUROSEMIDE INJ 10 MG/ML 4 ML VIAL IV NR (15:15)
[2020-08-21] MEDS ORDERED: VANCOMYCIN 1GM/NS 250 ML 250 ML IV ONE (15:15)
[2020-08-21 15:46] LABS: BASOPHILS % 0.2 % (0.0-1.0); EOSINOPHILS # (AUTO) 0.1 (0.0-0.4); EOSINOPHILS % 0.7 % (0.0-6.0); HEMATOCRIT 32.6 % (38.2-49.6); HEMOGLOBIN 10.1 g/dL (14.0-18.0); LYMPHOCYTES # (AUTO) 0.4 (1.0-3.2); LYMPHOCYTES % 2.1 % (18.0-39.1); MEAN CORPUSCULAR HEMOGLOBIN 30.5 pg (28-32); MEAN CORPUSCULAR VOLUME 98.5 fL (81-99); MONOCYTES # (AUTO) 1.2 (0.2-0.8); MONOCYTES % 6.8 % (4.4-11.3); NEUTROPHILS # (AUTO) 15.7 (2.1-6.9); NEUTROPHILS % 89.5 % (38.7-80.0); PLATELET COUNT 150 x10e3/uL (140-360); RED BLOOD COUNT 3.31 x10e6/uL (4.3-5.7); RED CELL DISTRIBUTION WIDTH 21.4 % (11.7-14.4)
[2020-08-21 15:59] LABS: INR 1.34; PROTHROMBIN TIME 17.5 seconds (11.9-14.5)
[2020-08-21] MEDS: MIDODRINE 2.5 MG TAB PO SCH (16:00)
[2020-08-21] MEDS ORDERED: SODIUM CHLORIDE 0.9% 1000ML 1,000 ML ONE (16:04)
[2020-08-21 16:06] LABS: ANION GAP 18.2 mmol/L (8-16); BLOOD UREA NITROGEN 23 mg/dL (7-26); BUN/CREATININE RATIO 31 (6-25); CALCIUM 8.6 mg/dL (8.4-10.2); CARBON DIOXIDE 25 mmol/L (22-29); CHLORIDE 98 mmol/L (98-107); CREATININE, SERUM 0.75 mg/dL (0.72-1.25); EST GLOMERULAR FILTRATION RATE > 60 ML/MIN (60-); GLUCOSE 109 mg/dL (74-118); POTASSIUM 3.2 mmol/L (3.5-5.1); SODIUM 138 mmol/L (136-145)
[2020-08-21] MEDS: PIPER-TAZ 3.375 GM 50 ML IV SCH (16:31)
[2020-08-21] MEDS: FENTANYL 2000MCG/NS 250 250 ML IV PRN (16:42)
[2020-08-21 16:53] LABS: ABG HCO3 29 mmol/L (22-26); ABG PCO2 31 mmHg (35-45); ABG PH 7.58 (7.35-7.45); ABG PO2 96 mmHg (80-105); ABG TCO2 30
[2020-08-21] MEDS: MIDAZOLAM HCL 5MG/ML 10ML VIAL 100 ML IV PRN (17:07)
[2020-08-21] MEDS ORDERED: NOREPINEPHRINE 8 MG/D5W 250 ML 250 ML ONE (21:37)
[2020-08-21] MEDS: NOREPINEPHRINE INJ 4MG/4ML 8 MG in DEXTROSE 5% 250ML 250 ML IV PRN (21:47)
[2020-08-22] VITALS (17 sets, daily range): BP systolic 78–126; BP diastolic 55–97
[2020-08-22] MEDS: FENTANYL 2000MCG/NS 250 250 ML IV PRN ×3 (00:30→18:18)
[2020-08-22] MEDS: PIPER-TAZ 3.375 GM 50 ML IV SCH ×4 (00:30→17:20)
[2020-08-22 05:02] LABS: BASOPHILS % 0.2 % (0.0-1.0); EOSINOPHILS # (AUTO) 0.7 (0.0-0.4); EOSINOPHILS % 3.5 % (0.0-6.0); HEMATOCRIT 30.8 % (38.2-49.6); HEMOGLOBIN 9.8 g/dL (14.0-18.0); LYMPHOCYTES # (AUTO) 0.7 (1.0-3.2); LYMPHOCYTES % 3.5 % (18.0-39.1); MEAN CORPUSCULAR HEMOGLOBIN 31.2 pg (28-32); MEAN CORPUSCULAR HGB CONC 31.8 g/dL (31-35); MEAN CORPUSCULAR VOLUME 98.1 fL (81-99); MONOCYTES # (AUTO) 1.3 (0.2-0.8); MONOCYTES % 6.8 % (4.4-11.3); NEUTROPHILS # (AUTO) 15.7 (2.1-6.9); NEUTROPHILS % 85.4 % (38.7-80.0); PLATELET COUNT 180 x10e3/uL (140-360); RED BLOOD COUNT 3.14 x10e6/uL (4.3-5.7); RED CELL DISTRIBUTION WIDTH 20.9 % (11.7-14.4)
[2020-08-22 05:23] LABS: ALANINE AMINOTRANSFERASE 136 IU/L (0-55); ALBUMIN 2.6 g/dL (3.5-5.0); ALBUMIN/GLOBULIN RATIO 0.8 (0.8-2.0); ALKALINE PHOSPHATASE 112 IU/L (40-150); ANION GAP 15.3 mmol/L (8-16); BLOOD UREA NITROGEN 26 mg/dL (7-26); BUN/CREATININE RATIO 26 (6-25); CALCIUM 8.5 mg/dL (8.4-10.2); CARBON DIOXIDE 27 mmol/L (22-29); CHLORIDE 101 mmol/L (98-107); CREATININE, SERUM 1.01 mg/dL (0.72-1.25); EST GLOMERULAR FILTRATION RATE > 60 ML/MIN (60-); GLUCOSE 95 mg/dL (74-118); MAGNESIUM 1.8 MG/DL (1.3-2.1); POTASSIUM 3.3 mmol/L (3.5-5.1); SODIUM 140 mmol/L (136-145)
[2020-08-22] MEDS: MIDAZOLAM HCL 5MG/ML 10ML VIAL 100 ML IV PRN ×3 (05:52→18:49)
[2020-08-22] MEDS: MIDODRINE 2.5 MG TAB PO SCH ×3 (08:03→15:53)
[2020-08-22] MEDS: LIDOCAINE 4% PATCH TP SCH (08:13)
[2020-08-22] MEDS: METOPROLOL TARTRATE 25 MG TAB PO SCH (08:13)
[2020-08-22] MEDS: BUSPIRONE HCL 5 MG TAB PO SCH (08:13)
[2020-08-22] MEDS: RIVASTIGMINE PATCH 4.6MG/24 HOURS PATCH TD SCH (08:13)
[2020-08-22] MEDS: TICAGRELOR 90 MG TABLET PO SCH (08:13)
[2020-08-22] MEDS ORDERED: POTASSIUM CHLORIDE 20 MEQ TAB CR PO PRN (09:00)
[2020-08-22] MEDS: HEPARIN SOD (PORCINE) 5,000 UNIT/ML VIAL SC SCH ×2 (10:30→22:35)
[2020-08-22 12:12] LABS: ABG HCO3 31 mmol/L (22-26); ABG PCO2 50 mmHg (35-45); ABG PO2 165 mmHg (80-105); ABG TCO2 32
[2020-08-22] MEDS ORDERED: POTASSIUM CHLORIDE 20MEQ/100ML 200 ML IV ONE (17:00)
[2020-08-22] MEDS: FUROSEMIDE INJ 10 MG/ML 4 ML VIAL IV SCH (17:05)
[2020-08-22] MEDS: NOREPINEPHRINE INJ 4MG/4ML 8 MG in DEXTROSE 5% 250ML 250 ML IV PRN (18:48)
[2020-08-22] MEDS ORDERED: FUROSEMIDE INJ 10 MG/ML 4 ML VIAL IV SCH (22:00)
[2020-08-23] VITALS (17 sets, daily range): BP systolic 79–110; BP diastolic 55–69
[2020-08-23] MEDS: PIPER-TAZ 3.375 GM 50 ML IV SCH ×3 (00:02→11:23)
[2020-08-23] MEDS: FENTANYL 2000MCG/NS 250 250 ML IV PRN ×4 (00:04→23:39)
[2020-08-23] MEDS: FUROSEMIDE INJ 10 MG/ML 4 ML VIAL IV SCH ×3 (01:35→16:42)
[2020-08-23 06:21] LABS: INR 1.23; PROTHROMBIN TIME 16.3 seconds (11.9-14.5)
[2020-08-23 06:22] LABS: BASOPHILS # (AUTO) 0.1 (0.0-0.1); BASOPHILS % 0.3 % (0.0-1.0); EOSINOPHILS # (AUTO) 0.3 (0.0-0.4); EOSINOPHILS % 1.7 % (0.0-6.0); HEMATOCRIT 31.1 % (38.2-49.6); HEMOGLOBIN 9.3 g/dL (14.0-18.0); LYMPHOCYTES # (AUTO) 0.4 (1.0-3.2); LYMPHOCYTES % 2.2 % (18.0-39.1); MEAN CORPUSCULAR HEMOGLOBIN 30.4 pg (28-32); MEAN CORPUSCULAR HGB CONC 29.9 g/dL (31-35); MEAN CORPUSCULAR VOLUME 101.6 fL (81-99); MONOCYTES # (AUTO) 1.3 (0.2-0.8); MONOCYTES % 6.5 % (4.4-11.3); NEUTROPHILS # (AUTO) 17.3 (2.1-6.9); NEUTROPHILS % 88.6 % (38.7-80.0); PARTIAL THROMBOPLASTIN TIME 44.7 seconds (23.8-35.5); PLATELET COUNT 209 x10e3/uL (140-360); RED BLOOD COUNT 3.06 x10e6/uL (4.3-5.7); RED CELL DISTRIBUTION WIDTH 20.1 % (11.7-14.4)
[2020-08-23 06:38] LABS: ALBUMIN 2.3 g/dL (3.5-5.0); ALBUMIN/GLOBULIN RATIO 0.6 (0.8-2.0); ANION GAP 14.4 mmol/L (8-16); CALCIUM 8.2 mg/dL (8.4-10.2); CREATININE, SERUM 1.38 mg/dL (0.72-1.25); POTASSIUM 4.4 mmol/L (3.5-5.1)
[2020-08-23] MEDS: HEPARIN SOD (PORCINE) 5,000 UNIT/ML VIAL SC SCH ×2 (08:08→21:01)
[2020-08-23] MEDS: TICAGRELOR 90 MG TABLET PO SCH (08:08)
[2020-08-23] MEDS: MIDODRINE 2.5 MG TAB PO SCH ×3 (08:08→16:42)
[2020-08-23] MEDS: MIDAZOLAM HCL 5MG/ML 10ML VIAL 100 ML IV PRN ×2 (08:09→16:42)
[2020-08-23] MEDS: LIDOCAINE 4% PATCH TP SCH (08:09)
[2020-08-23] MEDS: NOREPINEPHRINE INJ 4MG/4ML 8 MG in DEXTROSE 5% 250ML 250 ML IV PRN ×2 (08:10→17:17)
[2020-08-23] MEDS ORDERED: VASOPRESSIN 60 UNIT in DEXTROSE 5% 50ML 57 ML IV PRN (10:45)
[2020-08-23 14:08] LABS: AMYLASE 242 U/L (25-125); LIPASE 254 U/L (8-78)
[2020-08-23] MEDS: FUROSEMIDE INJ 100 MG in SODIUM CHLORIDE 0.9% 100 ML 90 ML IV SCH (17:22)
[2020-08-24] VITALS (24 sets, daily range): BP systolic 80–128; BP diastolic 51–76
[2020-08-24] MEDS: FUROSEMIDE INJ 100 MG in SODIUM CHLORIDE 0.9% 100 ML 90 ML IV SCH ×2 (03:03→14:33)
[2020-08-24] MEDS ORDERED: CEFEPIME 1GM/NS 0.9% 50 ML 50 ML IV SCH (04:45)
[2020-08-24] MEDS: MIDAZOLAM HCL 5MG/ML 10ML VIAL 100 ML IV PRN (05:00)
[2020-08-24] MEDS: FENTANYL 2000MCG/NS 250 250 ML IV PRN ×2 (06:30→20:42)
[2020-08-24] MEDS: MIDODRINE 2.5 MG TAB PO SCH ×3 (08:58→15:53)
[2020-08-24] MEDS: LIDOCAINE 4% PATCH TP SCH (08:58)
[2020-08-24] MEDS: TICAGRELOR 90 MG TABLET PO SCH (08:58)
[2020-08-24] MEDS: HEPARIN SOD (PORCINE) 5,000 UNIT/ML VIAL SC SCH ×2 (08:59→21:00)
[2020-08-24 09:56] LABS: BASOPHILS # (AUTO) 0.1 (0.0-0.1); BASOPHILS % 0.3 % (0.0-1.0); EOSINOPHILS # (AUTO) 0.2 (0.0-0.4); EOSINOPHILS % 0.9 % (0.0-6.0); HEMATOCRIT 31.7 % (38.2-49.6); HEMOGLOBIN 9.7 g/dL (14.0-18.0); LYMPHOCYTES # (AUTO) 0.5 (1.0-3.2); LYMPHOCYTES % 2.5 % (18.0-39.1); MEAN CORPUSCULAR HEMOGLOBIN 30.8 pg (28-32); MEAN CORPUSCULAR HGB CONC 30.6 g/dL (31-35); MEAN CORPUSCULAR VOLUME 100.6 fL (81-99); MONOCYTES # (AUTO) 1.3 (0.2-0.8); MONOCYTES % 6.1 % (4.4-11.3); NEUTROPHILS # (AUTO) 19.1 (2.1-6.9); NEUTROPHILS % 89.4 % (38.7-80.0); PLATELET COUNT 243 x10e3/uL (140-360); RED BLOOD COUNT 3.15 x10e6/uL (4.3-5.7)
[2020-08-24 10:15] LABS: CALCIUM 8.5 mg/dL (8.4-10.2); CREATININE, SERUM 1.2 mg/dL (0.72-1.25)
[2020-08-24] MEDS: VANCOMYCIN 1GM/NS 250 ML 250 ML IV SCH (11:43)
[2020-08-24] MEDS: FLUCONAZOLE 200 MG/100 ML 100 ML IV SCH (14:33)
[2020-08-24] MEDS: MEROPENEM 500MG/ NS 50ML 50 ML IV SCH ×2 (14:33→21:09)
[2020-08-25] VITALS (25 sets, daily range): BP systolic 91–116; BP diastolic 45–67
[2020-08-25] MEDS: FUROSEMIDE INJ 100 MG in SODIUM CHLORIDE 0.9% 100 ML 90 ML IV SCH ×3 (00:25→14:53)
[2020-08-25] MEDS: FENTANYL 2000MCG/NS 250 250 ML IV PRN ×2 (04:12→21:14)
[2020-08-25 04:50] LABS: BASOPHILS # (AUTO) 0.1 (0.0-0.1); BASOPHILS % 0.3 % (0.0-1.0); EOSINOPHILS # (AUTO) 0.2 (0.0-0.4); EOSINOPHILS % 0.8 % (0.0-6.0); HEMATOCRIT 32.4 % (38.2-49.6); HEMOGLOBIN 9.9 g/dL (14.0-18.0); LYMPHOCYTES # (AUTO) 0.5 (1.0-3.2); LYMPHOCYTES % 2.1 % (18.0-39.1); MEAN CORPUSCULAR HEMOGLOBIN 31.2 pg (28-32); MEAN CORPUSCULAR HGB CONC 30.6 g/dL (31-35); MEAN CORPUSCULAR VOLUME 102.2 fL (81-99); MONOCYTES # (AUTO) 1.4 (0.2-0.8); MONOCYTES % 6.6 % (4.4-11.3); NEUTROPHILS # (AUTO) 19.3 (2.1-6.9); NEUTROPHILS % 89.5 % (38.7-80.0); PLATELET COUNT 239 x10e3/uL (140-360); RED BLOOD COUNT 3.17 x10e6/uL (4.3-5.7); RED CELL DISTRIBUTION WIDTH 19.9 % (11.7-14.4)
[2020-08-25 05:12] LABS: ALANINE AMINOTRANSFERASE 57 IU/L (0-55); ALBUMIN 2.3 g/dL (3.5-5.0); ALBUMIN/GLOBULIN RATIO 0.6 (0.8-2.0); ALKALINE PHOSPHATASE 123 IU/L (40-150); ANION GAP 15.6 mmol/L (8-16); BLOOD UREA NITROGEN 48 mg/dL (7-26); BUN/CREATININE RATIO 56 (6-25); CALCIUM 8.5 mg/dL (8.4-10.2); CARBON DIOXIDE 36 mmol/L (22-29); CHLORIDE 97 mmol/L (98-107); CREATININE, SERUM 0.85 mg/dL (0.72-1.25); EST GLOMERULAR FILTRATION RATE > 60 ML/MIN (60-); GLUCOSE 142 mg/dL (74-118); POTASSIUM 3.6 mmol/L (3.5-5.1); SODIUM 145 mmol/L (136-145)
[2020-08-25] MEDS: MEROPENEM 500MG/ NS 50ML 50 ML IV SCH ×3 (06:00→21:12)
[2020-08-25] MEDS: TICAGRELOR 90 MG TABLET PO SCH (08:39)
[2020-08-25] MEDS: LIDOCAINE 4% PATCH TP SCH (08:39)
[2020-08-25] MEDS: MIDODRINE 2.5 MG TAB PO SCH (08:39)
[2020-08-25] MEDS: HEPARIN SOD (PORCINE) 5,000 UNIT/ML VIAL SC SCH ×2 (08:45→20:22)
[2020-08-25] MEDS: VANCOMYCIN 1GM/NS 250 ML 250 ML IV SCH (13:00)
[2020-08-25] MEDS: MIDODRINE HCL 5 MG TABLET PO SCH ×2 (13:00→17:45)
[2020-08-25] MEDS: FLUCONAZOLE 200 MG/100 ML 100 ML IV SCH (14:27)
[2020-08-25] MEDS: MIDAZOLAM HCL 5MG/ML 10ML VIAL 100 ML IV PRN (21:22)
[2020-08-26] VITALS (13 sets, daily range): BP systolic 96–110; BP diastolic 41–72
[2020-08-26] MEDS: MIDAZOLAM HCL 5MG/ML 10ML VIAL 100 ML IV PRN ×2 (04:30→21:01)
[2020-08-26 05:35] LABS: BASOPHILS # (AUTO) 0.1 (0.0-0.1); BASOPHILS % 0.3 % (0.0-1.0); EOSINOPHILS # (AUTO) 0.3 (0.0-0.4); EOSINOPHILS % 1.3 % (0.0-6.0); HEMATOCRIT 31.6 % (38.2-49.6); HEMOGLOBIN 9.6 g/dL (14.0-18.0); LYMPHOCYTES # (AUTO) 0.6 (1.0-3.2); LYMPHOCYTES % 2.8 % (18.0-39.1); MEAN CORPUSCULAR HEMOGLOBIN 31.2 pg (28-32); MEAN CORPUSCULAR HGB CONC 30.4 g/dL (31-35); MEAN CORPUSCULAR VOLUME 102.6 fL (81-99); MONOCYTES # (AUTO) 1.3 (0.2-0.8); MONOCYTES % 6.9 % (4.4-11.3); NEUTROPHILS # (AUTO) 17.2 (2.1-6.9); PLATELET COUNT 236 x10e3/uL (140-360); RED BLOOD COUNT 3.08 x10e6/uL (4.3-5.7); RED CELL DISTRIBUTION WIDTH 20.7 % (11.7-14.4)
[2020-08-26 05:52] LABS: ALANINE AMINOTRANSFERASE 42 IU/L (0-55); ALBUMIN 2.1 g/dL (3.5-5.0); ALBUMIN/GLOBULIN RATIO 0.5 (0.8-2.0); ALKALINE PHOSPHATASE 131 IU/L (40-150); ANION GAP 11.3 mmol/L (8-16); BLOOD UREA NITROGEN 46 mg/dL (7-26); BUN/CREATININE RATIO 58 (6-25); CALCIUM 8.5 mg/dL (8.4-10.2); CHLORIDE 97 mmol/L (98-107); EST GLOMERULAR FILTRATION RATE > 60 ML/MIN (60-); GLUCOSE 142 mg/dL (74-118); POTASSIUM 3.3 mmol/L (3.5-5.1); SODIUM 148 mmol/L (136-145)
[2020-08-26 05:56] LABS: CARBON DIOXIDE 43 mmol/L (22-29)
[2020-08-26] MEDS: MEROPENEM 500MG/ NS 50ML 50 ML IV SCH ×3 (06:00→21:00)
[2020-08-26] MEDS: FENTANYL 2000MCG/NS 250 250 ML IV PRN (06:38)
[2020-08-26] MEDS: TICAGRELOR 90 MG TABLET PO SCH (08:25)
[2020-08-26] MEDS: LIDOCAINE 4% PATCH TP SCH (08:25)
[2020-08-26] MEDS: HEPARIN SOD (PORCINE) 5,000 UNIT/ML VIAL SC SCH ×2 (08:25→21:00)
[2020-08-26] MEDS: MIDODRINE HCL 5 MG TABLET PO SCH ×3 (08:25→16:14)
[2020-08-26] MEDS ORDERED: POTASSIUM CHLORIDE 10MEQ EA PO NR (10:15)
[2020-08-26] MEDS ORDERED: POTASSIUM CHLORIDE 20MEQ/100ML 200 ML IV ONE (10:45)
[2020-08-26] MEDS: FUROSEMIDE INJ 100 MG in SODIUM CHLORIDE 0.9% 100 ML 90 ML IV SCH (11:00)
[2020-08-26] MEDS ORDERED: POTASSIUM CHLORIDE 20MEQ/100ML 200 ML IV SCH (12:00)
[2020-08-26] MEDS ORDERED: MAGNESIUM SULFATE 2GM/50ML 50 ML IV ONE (12:45)
[2020-08-26] MEDS: POTASSIUM CHLORIDE 20MEQ/100ML 100 ML IV SCH ×2 (12:52→15:48)
[2020-08-26] MEDS: ASPIRIN 81 MG CHEW TAB PO SCH (12:52)
[2020-08-26] MEDS: FLUCONAZOLE 200 MG/100 ML 100 ML IV SCH (16:14)
[2020-08-27] VITALS (27 sets, daily range): BP systolic 87–130; BP diastolic 51–86
[2020-08-27 04:36] LABS: BASOPHILS # (AUTO) 0.1 (0.0-0.1); BASOPHILS % 0.4 % (0.0-1.0); HEMATOCRIT 34.8 % (38.2-49.6); HEMOGLOBIN 10.7 g/dL (14.0-18.0); LYMPHOCYTES # (AUTO) 0.4 (1.0-3.2); LYMPHOCYTES % 1.7 % (18.0-39.1); MEAN CORPUSCULAR HEMOGLOBIN 30.4 pg (28-32); MEAN CORPUSCULAR HGB CONC 30.7 g/dL (31-35); MEAN CORPUSCULAR VOLUME 98.9 fL (81-99); MONOCYTES # (AUTO) 1.6 (0.2-0.8); NEUTROPHILS # (AUTO) 20.6 (2.1-6.9); NEUTROPHILS % 90.2 % (38.7-80.0); PLATELET COUNT 299 x10e3/uL (140-360); RED BLOOD COUNT 3.52 x10e6/uL (4.3-5.7); RED CELL DISTRIBUTION WIDTH 21.6 % (11.7-14.4)
[2020-08-27 04:58] LABS: ALANINE AMINOTRANSFERASE 45 IU/L (0-55); ALBUMIN 2.4 g/dL (3.5-5.0); ALBUMIN/GLOBULIN RATIO 0.5 (0.8-2.0); ALKALINE PHOSPHATASE 174 IU/L (40-150); ANION GAP 18.6 mmol/L (8-16); BLOOD UREA NITROGEN 51 mg/dL (7-26); BUN/CREATININE RATIO 48 (6-25); CALCIUM 9.2 mg/dL (8.4-10.2); CARBON DIOXIDE 39 mmol/L (22-29); CHLORIDE 97 mmol/L (98-107); CREATININE, SERUM 1.07 mg/dL (0.72-1.25); EST GLOMERULAR FILTRATION RATE > 60 ML/MIN (60-); GLUCOSE 137 mg/dL (74-118); POTASSIUM 3.6 mmol/L (3.5-5.1); SODIUM 151 mmol/L (136-145)
[2020-08-27] MEDS: MEROPENEM 500MG/ NS 50ML 50 ML IV SCH ×3 (06:04→21:55)
[2020-08-27] MEDS: MIDAZOLAM HCL 5MG/ML 10ML VIAL 100 ML IV PRN ×2 (06:05→21:16)
[2020-08-27] MEDS: ACETAMINOPHEN 325 MG TAB PO PRN ×2 (06:07→12:40)
[2020-08-27] MEDS: ASPIRIN 81 MG CHEW TAB PO SCH (09:05)
[2020-08-27] MEDS: TICAGRELOR 90 MG TABLET PO SCH (09:05)
[2020-08-27] MEDS: LIDOCAINE 4% PATCH TP SCH (09:06)
[2020-08-27] MEDS: MIDODRINE HCL 5 MG TABLET PO SCH ×3 (09:07→16:00)
[2020-08-27] MEDS: HEPARIN SOD (PORCINE) 5,000 UNIT/ML VIAL SC SCH ×2 (09:10→21:22)
[2020-08-27] MEDS: FUROSEMIDE INJ 100 MG in SODIUM CHLORIDE 0.9% 100 ML 90 ML IV SCH (09:10)
[2020-08-27] MEDS ORDERED: FENTANYL CITRATE INJ 2,000 MCG in SODIUM CHLORIDE 0.9% 250ML 210 ML IV SCH (13:30)
[2020-08-27] MEDS ORDERED: FENTANYL 2000MCG/NS 250 250 ML IV SCH (14:30)
[2020-08-27] MEDS: FLUCONAZOLE 200 MG/100 ML 100 ML IV SCH (15:35)
[2020-08-27] MEDS: NOREPINEPHRINE INJ 4MG/4ML 8 MG in DEXTROSE 5% 250ML 250 ML IV PRN (19:56)
[2020-08-28] VITALS (26 sets, daily range): BP systolic 86–120; BP diastolic 62–76
[2020-08-28 05:34] LABS: BASOPHILS # (AUTO) 0.1 (0.0-0.1); BASOPHILS % 0.4 % (0.0-1.0); EOSINOPHILS % 0.2 % (0.0-6.0); HEMATOCRIT 32.2 % (38.2-49.6); HEMOGLOBIN 9.6 g/dL (14.0-18.0); LYMPHOCYTES # (AUTO) 0.7 (1.0-3.2); LYMPHOCYTES % 3.9 % (18.0-39.1); MEAN CORPUSCULAR HEMOGLOBIN 30.5 pg (28-32); MEAN CORPUSCULAR HGB CONC 29.8 g/dL (31-35); MEAN CORPUSCULAR VOLUME 102.2 fL (81-99); MONOCYTES # (AUTO) 1.2 (0.2-0.8); MONOCYTES % 6.7 % (4.4-11.3); NEUTROPHILS # (AUTO) 16.2 (2.1-6.9); PLATELET COUNT 255 x10e3/uL (140-360); RED BLOOD COUNT 3.15 x10e6/uL (4.3-5.7); RED CELL DISTRIBUTION WIDTH 21.1 % (11.7-14.4)
[2020-08-28 06:01] LABS: ALANINE AMINOTRANSFERASE 37 IU/L (0-55); ALBUMIN 2.1 g/dL (3.5-5.0); ALBUMIN/GLOBULIN RATIO 0.5 (0.8-2.0); ALKALINE PHOSPHATASE 128 IU/L (40-150); ANION GAP 16.3 mmol/L (8-16); BLOOD UREA NITROGEN 69 mg/dL (7-26); BUN/CREATININE RATIO 68 (6-25); CALCIUM 8.6 mg/dL (8.4-10.2); CARBON DIOXIDE 39 mmol/L (22-29); CHLORIDE 99 mmol/L (98-107); CREATININE, SERUM 1.01 mg/dL (0.72-1.25); EST GLOMERULAR FILTRATION RATE > 60 ML/MIN (60-); GLUCOSE 145 mg/dL (74-118); POTASSIUM 3.3 mmol/L (3.5-5.1); SODIUM 151 mmol/L (136-145)
[2020-08-28] MEDS: FUROSEMIDE INJ 100 MG in SODIUM CHLORIDE 0.9% 100 ML 90 ML IV SCH (06:45)
[2020-08-28] MEDS: MEROPENEM 500MG/ NS 50ML 50 ML IV SCH ×3 (08:27→21:14)
[2020-08-28] MEDS: ASPIRIN 81 MG CHEW TAB PO SCH (08:27)
[2020-08-28] MEDS: TICAGRELOR 90 MG TABLET PO SCH (08:27)
[2020-08-28] MEDS: MIDODRINE HCL 5 MG TABLET PO SCH ×3 (08:27→16:30)
[2020-08-28] MEDS: HEPARIN SOD (PORCINE) 5,000 UNIT/ML VIAL SC SCH ×2 (08:27→20:27)
[2020-08-28] MEDS: LIDOCAINE 4% PATCH TP SCH (08:29)
[2020-08-28] MEDS ORDERED: MIDAZOLAM HCL 2 MG/2 ML VIAL IV PRN (10:15)
[2020-08-28] MEDS: FLUCONAZOLE 200 MG/100 ML 100 ML IV SCH (16:30)
[2020-08-28] MEDS: ACETAMINOPHEN 325 MG TAB PO PRN (20:28)
[2020-08-29] VITALS (15 sets, daily range): BP systolic 108–121; BP diastolic 71–89
[2020-08-29] MEDS: FUROSEMIDE INJ 100 MG in SODIUM CHLORIDE 0.9% 100 ML 90 ML IV SCH ×2 (00:09→19:00)
[2020-08-29 05:39] LABS: BASOPHILS # (AUTO) 0.1 (0.0-0.1); BASOPHILS % 0.3 % (0.0-1.0); EOSINOPHILS # (AUTO) 0.1 (0.0-0.4); EOSINOPHILS % 0.4 % (0.0-6.0); HEMOGLOBIN 10.1 g/dL (14.0-18.0); LYMPHOCYTES # (AUTO) 0.7 (1.0-3.2); LYMPHOCYTES % 3.6 % (18.0-39.1); MEAN CORPUSCULAR HEMOGLOBIN 30.3 pg (28-32); MEAN CORPUSCULAR HGB CONC 30.6 g/dL (31-35); MEAN CORPUSCULAR VOLUME 99.1 fL (81-99); MONOCYTES # (AUTO) 1.2 (0.2-0.8); MONOCYTES % 5.6 % (4.4-11.3); NEUTROPHILS # (AUTO) 18.1 (2.1-6.9); NEUTROPHILS % 89.2 % (38.7-80.0); PLATELET COUNT 289 x10e3/uL (140-360); RED BLOOD COUNT 3.33 x10e6/uL (4.3-5.7); RED CELL DISTRIBUTION WIDTH 21.6 % (11.7-14.4)
[2020-08-29] MEDS: MEROPENEM 500MG/ NS 50ML 50 ML IV SCH ×3 (05:45→22:00)
[2020-08-29 06:17] LABS: ALANINE AMINOTRANSFERASE 40 IU/L (0-55); ALBUMIN 2.2 g/dL (3.5-5.0); ALBUMIN/GLOBULIN RATIO 0.5 (0.8-2.0); ALKALINE PHOSPHATASE 131 IU/L (40-150); ANION GAP 16.2 mmol/L (8-16); BLOOD UREA NITROGEN 72 mg/dL (7-26); BUN/CREATININE RATIO 74 (6-25); CALCIUM 8.9 mg/dL (8.4-10.2); CARBON DIOXIDE 37 mmol/L (22-29); CHLORIDE 99 mmol/L (98-107); CREATININE, SERUM 0.97 mg/dL (0.72-1.25); EST GLOMERULAR FILTRATION RATE > 60 ML/MIN (60-); GLUCOSE 134 mg/dL (74-118); POTASSIUM 3.2 mmol/L (3.5-5.1); SODIUM 149 mmol/L (136-145)
[2020-08-29] MEDS: MIDODRINE HCL 5 MG TABLET PO SCH ×3 (07:35→18:25)
[2020-08-29] MEDS: LIDOCAINE 4% PATCH TP SCH (07:35)
[2020-08-29] MEDS: ASPIRIN 81 MG CHEW TAB PO SCH (07:35)
[2020-08-29] MEDS: TICAGRELOR 90 MG TABLET PO SCH (07:35)
[2020-08-29 11:28] LABS: ABG HCO3 44 mmol/L (22-26); ABG PCO2 42 mmHg (35-45); ABG PH 7.63 (7.35-7.45); ABG PO2 92 mmHg (80-105); ABG TCO2 45
[2020-08-29] MEDS: CHLORTHALIDONE 25 MG TAB PO SCH (11:59)
[2020-08-29] MEDS: FLUCONAZOLE 200 MG/100 ML 100 ML IV SCH (18:25)
[2020-08-30] VITALS (25 sets, daily range): BP systolic 93–118; BP diastolic 56–78
[2020-08-30 05:29] LABS: BLOOD UREA NITROGEN 72 mg/dL (7-26); BUN/CREATININE RATIO 75 (6-25); CARBON DIOXIDE 37 mmol/L (22-29); CHLORIDE 96 mmol/L (98-107); CREATININE, SERUM 0.96 mg/dL (0.72-1.25); EST GLOMERULAR FILTRATION RATE > 60 ML/MIN (60-); GLUCOSE 152 mg/dL (74-118); MAGNESIUM 2.2 MG/DL (1.3-2.1); PHOSPHORUS 2.8 MG/DL (2.3-4.7); SODIUM 147 mmol/L (136-145)
[2020-08-30] MEDS ORDERED: POTASSIUM CHLORIDE 20MEQ/100ML 200 ML IV ONE (07:45)
[2020-08-30] MEDS: MIDODRINE HCL 5 MG TABLET PO SCH ×3 (08:00→16:06)
[2020-08-30] MEDS ORDERED: ACETAZOLAMIDE SODIUM 500 MG/VIAL IV SCH (09:00)
[2020-08-30] MEDS: LIDOCAINE 4% PATCH TP SCH (09:29)
[2020-08-30] MEDS: TICAGRELOR 90 MG TABLET PO SCH (09:29)
[2020-08-30] MEDS: CHLORTHALIDONE 25 MG TAB PO SCH (09:29)
[2020-08-30] MEDS: ACETAZOLAMIDE 250 MG TAB PO SCH ×2 (09:29→17:34)
[2020-08-30] MEDS: ASPIRIN 81 MG CHEW TAB PO SCH (09:29)
[2020-08-30] MEDS: ACETAMINOPHEN 325 MG TAB PO PRN (09:30)
[2020-08-30] MEDS: SPIRONOLACTONE 25 MG TAB PO SCH (10:26)
[2020-08-30] MEDS: MEROPENEM 500MG/ NS 50ML 50 ML IV SCH (14:08)
[2020-08-30] MEDS: FUROSEMIDE INJ 100 MG in SODIUM CHLORIDE 0.9% 100 ML 90 ML IV SCH (15:28)
[2020-08-30] MEDS: FLUCONAZOLE 200 MG/100 ML 100 ML IV SCH (15:28)
[2020-08-31] VITALS (24 sets, daily range): BP systolic 94–151; BP diastolic 62–98
[2020-08-31 04:41] LABS: BASOPHILS # (AUTO) 0.1 (0.0-0.1); BASOPHILS % 0.2 % (0.0-1.0); EOSINOPHILS # (AUTO) 0.2 (0.0-0.4); EOSINOPHILS % 0.7 % (0.0-6.0); HEMATOCRIT 32.6 % (38.2-49.6); HEMOGLOBIN 10.1 g/dL (14.0-18.0); LYMPHOCYTES # (AUTO) 0.9 (1.0-3.2); MEAN CORPUSCULAR HEMOGLOBIN 31.1 pg (28-32); MEAN CORPUSCULAR VOLUME 100.3 fL (81-99); MONOCYTES # (AUTO) 1.1 (0.2-0.8); NEUTROPHILS # (AUTO) 20.5 (2.1-6.9); NEUTROPHILS % 89.3 % (38.7-80.0); PLATELET COUNT 311 x10e3/uL (140-360); RED BLOOD COUNT 3.25 x10e6/uL (4.3-5.7); RED CELL DISTRIBUTION WIDTH 21.4 % (11.7-14.4)
[2020-08-31 05:03] LABS: ALANINE AMINOTRANSFERASE 38 IU/L (0-55); ALBUMIN 2.2 g/dL (3.5-5.0); ALBUMIN/GLOBULIN RATIO 0.5 (0.8-2.0); ALKALINE PHOSPHATASE 124 IU/L (40-150); ANION GAP 13.8 mmol/L (8-16); BLOOD UREA NITROGEN 67 mg/dL (7-26); BUN/CREATININE RATIO 72 (6-25); CALCIUM 8.8 mg/dL (8.4-10.2); CARBON DIOXIDE 35 mmol/L (22-29); CHLORIDE 95 mmol/L (98-107); CREATININE, SERUM 0.93 mg/dL (0.72-1.25); EST GLOMERULAR FILTRATION RATE > 60 ML/MIN (60-); GLUCOSE 139 mg/dL (74-118); MAGNESIUM 2.2 MG/DL (1.3-2.1); PHOSPHORUS 3.2 MG/DL (2.3-4.7); SODIUM 141 mmol/L (136-145)
[2020-08-31 05:07] LABS: POTASSIUM 2.8 mmol/L (3.5-5.1)
[2020-08-31] MEDS ORDERED: POTASSIUM CHLORIDE 20MEQ/100ML 300 ML IV ONE (07:00)
[2020-08-31] MEDS ORDERED: POTASSIUM CHLORIDE 20MEQ/100ML 200 ML IV ONE (07:30)
[2020-08-31] MEDS: MIDODRINE HCL 5 MG TABLET PO SCH ×3 (08:50→16:08)
[2020-08-31] MEDS: SPIRONOLACTONE 25 MG TAB PO SCH (09:21)
[2020-08-31] MEDS: TICAGRELOR 90 MG TABLET PO SCH (09:21)
[2020-08-31] MEDS: CHLORTHALIDONE 25 MG TAB PO SCH (09:21)
[2020-08-31] MEDS: ACETAZOLAMIDE 250 MG TAB PO SCH ×2 (09:21→17:16)
[2020-08-31] MEDS: ASPIRIN 81 MG CHEW TAB PO SCH (09:21)
[2020-08-31] MEDS: LIDOCAINE 4% PATCH TP SCH (09:21)
[2020-08-31] MEDS: FUROSEMIDE INJ 100 MG in SODIUM CHLORIDE 0.9% 100 ML 90 ML IV SCH ×2 (11:10→12:21)
[2020-08-31] MEDS ORDERED: DEXMEDETOMIDINE 200MCG/NS 50ML 50 ML IV ONE (22:12)
[2020-08-31] MEDS: DEXMEDETOMIDINE HCL 200 MCG in SODIUM CHLORIDE 0.9% 50ML 48 ML IV SCH (23:00)
[2020-09-01] VITALS (26 sets, daily range): BP systolic 80–108; BP diastolic 51–73
[2020-09-01] MEDS: DEXMEDETOMIDINE HCL 200 MCG in SODIUM CHLORIDE 0.9% 50ML 48 ML IV SCH (04:09)
[2020-09-01] MEDS ORDERED: DEXMEDETOMIDINE 200MCG/NS 50ML 50 ML IV ONE (04:11)
[2020-09-01 06:33] LABS: ANION GAP 16.1 mmol/L (8-16); BLOOD UREA NITROGEN 83 mg/dL (7-26); BUN/CREATININE RATIO 72 (6-25); CALCIUM 8.5 mg/dL (8.4-10.2); CARBON DIOXIDE 31 mmol/L (22-29); CHLORIDE 95 mmol/L (98-107); CREATININE, SERUM 1.16 mg/dL (0.72-1.25); EST GLOMERULAR FILTRATION RATE > 60 ML/MIN (60-); GLUCOSE 146 mg/dL (74-118); POTASSIUM 3.1 mmol/L (3.5-5.1); SODIUM 139 mmol/L (136-145)
[2020-09-01 08:02] LABS: BASOPHILS # (AUTO) 0.1 (0.0-0.1); BASOPHILS % 0.2 % (0.0-1.0); EOSINOPHILS # (AUTO) 0.1 (0.0-0.4); EOSINOPHILS % 0.3 % (0.0-6.0); HEMATOCRIT 33.8 % (38.2-49.6); HEMOGLOBIN 10.6 g/dL (14.0-18.0); LYMPHOCYTES # (AUTO) 0.9 (1.0-3.2); LYMPHOCYTES % 3.5 % (18.0-39.1); MEAN CORPUSCULAR HEMOGLOBIN 30.8 pg (28-32); MEAN CORPUSCULAR HGB CONC 31.4 g/dL (31-35); MEAN CORPUSCULAR VOLUME 98.3 fL (81-99); MONOCYTES # (AUTO) 1.3 (0.2-0.8); MONOCYTES % 4.8 % (4.4-11.3); NEUTROPHILS # (AUTO) 24.2 (2.1-6.9); NEUTROPHILS % 90.4 % (38.7-80.0); PLATELET COUNT 369 x10e3/uL (140-360); RED BLOOD COUNT 3.44 x10e6/uL (4.3-5.7); RED CELL DISTRIBUTION WIDTH 22.5 % (11.7-14.4)
[2020-09-01] MEDS: FUROSEMIDE INJ 100 MG in SODIUM CHLORIDE 0.9% 100 ML 90 ML IV SCH (08:43)
[2020-09-01] MEDS: MIDODRINE HCL 5 MG TABLET PO SCH ×3 (08:47→16:54)
[2020-09-01] MEDS: ASPIRIN 81 MG CHEW TAB PO SCH (08:47)
[2020-09-01] MEDS: LIDOCAINE 4% PATCH TP SCH (08:48)
[2020-09-01] MEDS: CHLORTHALIDONE 25 MG TAB PO SCH (08:48)
[2020-09-01] MEDS: SPIRONOLACTONE 25 MG TAB PO SCH (08:48)
[2020-09-01] MEDS: TICAGRELOR 90 MG TABLET PO SCH (08:48)
[2020-09-01] MEDS: KCL 20 MEQ PACKET/ ORAL SOLN NG PRN (08:49)
[2020-09-01 10:01] LABS: EOSINOPHILS % (MANUAL) 1 % (0-7); LYMPHOCYTES % (MANUAL) 2 % (19-48); MONOCYTES % (MANUAL) 4 % (3.4-9.0); NEUTROPHILS % (MANUAL) 93 % (40-74)
[2020-09-01 10:03] LABS: ANISOCYTOSIS MARKED; POLYCHROMASIA FEW
[2020-09-01 10:04] LABS: PLATELET ESTIMATE ADEQUATE; PLATELET MORPHOLOGY COMMENT NORMAL; RBC MORPHOLOGY COMMENT ABNORMAL
[2020-09-01 10:05] LABS: POIKILOCYTOSIS SLIGHT
[2020-09-01] MEDS ORDERED: MIDAZOLAM HCL 5MG/ML 10ML VIAL 100 ML IV SCH (11:15)
[2020-09-01] MEDS: FENTANYL 2000MCG/NS 250 250 ML IV SCH (12:15)
[2020-09-01] MEDS: ACETAMINOPHEN 325 MG TAB PO PRN (16:54)
[2020-09-01] MEDS: CEFEPIME 2 GM/NS 0.9% 100 ML 100 ML IV SCH (17:40)
[2020-09-01] MEDS: VANCOMYCIN 1GM/NS 250 ML 250 ML IV SCH (18:09)
[2020-09-02] VITALS (24 sets, daily range): BP systolic 85–109; BP diastolic 60–78
[2020-09-02] MEDS: FUROSEMIDE INJ 100 MG in SODIUM CHLORIDE 0.9% 100 ML 90 ML IV SCH (05:11)
[2020-09-02] MEDS: FENTANYL 2000MCG/NS 250 250 ML IV SCH (05:16)
[2020-09-02] MEDS: CEFEPIME 2 GM/NS 0.9% 100 ML 100 ML IV SCH ×2 (05:19→17:06)
[2020-09-02] MEDS: VANCOMYCIN 1GM/NS 250 ML 250 ML IV SCH ×2 (06:31→17:07)
[2020-09-02 07:18] LABS: BASOPHILS # (AUTO) 0.1 (0.0-0.1); BASOPHILS % 0.4 % (0.0-1.0); EOSINOPHILS % 0.1 % (0.0-6.0); HEMATOCRIT 33.5 % (38.2-49.6); HEMOGLOBIN 10.6 g/dL (14.0-18.0); LYMPHOCYTES # (AUTO) 0.6 (1.0-3.2); LYMPHOCYTES % 2.4 % (18.0-39.1); MEAN CORPUSCULAR HEMOGLOBIN 31.1 pg (28-32); MEAN CORPUSCULAR HGB CONC 31.6 g/dL (31-35); MEAN CORPUSCULAR VOLUME 98.2 fL (81-99); MONOCYTES # (AUTO) 1.4 (0.2-0.8); MONOCYTES % 5.1 % (4.4-11.3); NEUTROPHILS # (AUTO) 24.8 (2.1-6.9); PLATELET COUNT 370 x10e3/uL (140-360); RED BLOOD COUNT 3.41 x10e6/uL (4.3-5.7); RED CELL DISTRIBUTION WIDTH 22.4 % (11.7-14.4)
[2020-09-02 07:38] LABS: ANION GAP 18.9 mmol/L (8-16); CALCIUM 8.6 mg/dL (8.4-10.2); CREATININE, SERUM 1.19 mg/dL (0.72-1.25)
[2020-09-02 07:50] LABS: POTASSIUM 2.9 mmol/L (3.5-5.1)
[2020-09-02] MEDS ORDERED: POTASSIUM CHLORIDE 20MEQ/100ML 300 ML IV ONE (09:15)
[2020-09-02] MEDS: CHLORTHALIDONE 25 MG TAB PO SCH (09:21)
[2020-09-02] MEDS: ASPIRIN 81 MG CHEW TAB PO SCH (09:21)
[2020-09-02] MEDS: TICAGRELOR 90 MG TABLET PO SCH (09:21)
[2020-09-02] MEDS: LIDOCAINE 4% PATCH TP SCH (09:21)
[2020-09-02] MEDS: MIDODRINE HCL 5 MG TABLET PO SCH ×3 (09:21→17:06)
[2020-09-02] MEDS: SPIRONOLACTONE 25 MG TAB PO SCH (09:21)
[2020-09-02] MEDS: ACETAMINOPHEN 325 MG TAB PO PRN ×2 (13:35→21:45)
[2020-09-02] MEDS: BALSAM PERU/CASTOR OIL 60 GM OINT...G. TP SCH (17:06)
[2020-09-02] MEDS: DEXMEDETOMIDINE HCL 200 MCG in SODIUM CHLORIDE 0.9% 50ML 48 ML IV SCH (21:48)
[2020-09-02] MEDS ORDERED: SODIUM CHLORIDE 0.9% 50ML 0 ML ONE (21:49)
[2020-09-03] VITALS (27 sets, daily range): BP systolic 82–152; BP diastolic 56–99
[2020-09-03] MEDS: FUROSEMIDE INJ 100 MG in SODIUM CHLORIDE 0.9% 100 ML 90 ML IV SCH ×2 (03:00→20:15)
[2020-09-03] MEDS: ACETAMINOPHEN 1000 MG/100 ML IV PRN ×2 (05:30→20:27)
[2020-09-03] MEDS ORDERED: ACETAMINOPHEN 1000 MG/100 ML 100 ML IV ONE (05:30)
[2020-09-03] MEDS: CEFEPIME 2 GM/NS 0.9% 100 ML 100 ML IV SCH (05:56)
[2020-09-03] MEDS: VANCOMYCIN 1GM/NS 250 ML 250 ML IV SCH (06:00)
[2020-09-03 07:55] LABS: BLOOD UREA NITROGEN 78 mg/dL (7-26); BUN/CREATININE RATIO 83 (6-25); CALCIUM 8.4 mg/dL (8.4-10.2); CARBON DIOXIDE 31 mmol/L (22-29); CHLORIDE 100 mmol/L (98-107); CREATININE, SERUM 0.94 mg/dL (0.72-1.25); EST GLOMERULAR FILTRATION RATE > 60 ML/MIN (60-); GLUCOSE 171 mg/dL (74-118); SODIUM 143 mmol/L (136-145)
[2020-09-03] MEDS: LIDOCAINE 4% PATCH TP SCH (08:40)
[2020-09-03] MEDS: CHLORTHALIDONE 25 MG TAB PO SCH (08:40)
[2020-09-03] MEDS: BALSAM PERU/CASTOR OIL 60 GM OINT...G. TP SCH (08:40)
[2020-09-03] MEDS: KCL 20 MEQ PACKET/ ORAL SOLN NG PRN (08:40)
[2020-09-03] MEDS: ASPIRIN 81 MG CHEW TAB PO SCH (08:40)
[2020-09-03] MEDS: MIDODRINE HCL 5 MG TABLET PO SCH ×3 (08:40→17:06)
[2020-09-03] MEDS: SPIRONOLACTONE 25 MG TAB PO SCH (08:40)
[2020-09-03] MEDS: TICAGRELOR 90 MG TABLET PO SCH (08:40)
[2020-09-03] MEDS ORDERED: KCL 20 MEQ PACKET/ ORAL SOLN NG NR (09:30)
[2020-09-03] MEDS ORDERED: DIATRIZOATE MEGL/DIATRIZOA SOD 30 ML BTL PO ONE (09:50)
[2020-09-03 09:56] LABS: ABG HCO3 33 mmol/L (22-26); ABG PCO2 42 mmHg (35-45); ABG PO2 124 mmHg (80-105)
[2020-09-03 09:57] LABS: ABG TCO2 34
[2020-09-03] MEDS: DEXMEDETOMIDINE 200MCG/NS 50ML 50 ML IV SCH ×2 (10:13→20:30)
[2020-09-03] MEDS: ACETAMINOPHEN 325 MG TAB PO PRN (14:09)
[2020-09-03] MEDS: VANCOMYCIN 250MG/5ML ORAL SOLN PO SCH ×2 (14:59→17:06)
[2020-09-03] MEDS: METRONIDAZOLE 500MG/NS 100ML 100 ML IV SCH (22:07)
[2020-09-04] VITALS (25 sets, daily range): BP systolic 80–121; BP diastolic 56–85
[2020-09-04] MEDS: VANCOMYCIN 250MG/5ML ORAL SOLN PO SCH ×4 (00:01→17:12)
[2020-09-04] MEDS: DEXMEDETOMIDINE 200MCG/NS 50ML 50 ML IV SCH ×2 (01:00→04:53)
[2020-09-04] MEDS: METRONIDAZOLE 500MG/NS 100ML 100 ML IV SCH ×3 (05:39→22:00)
[2020-09-04 06:31] LABS: BASOPHILS % 0.1 % (0.0-1.0); EOSINOPHILS # (AUTO) 0.1 (0.0-0.4); EOSINOPHILS % 0.2 % (0.0-6.0); LYMPHOCYTES # (AUTO) 0.5 (1.0-3.2); LYMPHOCYTES % 2.2 % (18.0-39.1); MEAN CORPUSCULAR HEMOGLOBIN 31.6 pg (28-32); MEAN CORPUSCULAR HGB CONC 30.3 g/dL (31-35); MEAN CORPUSCULAR VOLUME 104.4 fL (81-99); MONOCYTES # (AUTO) 1.2 (0.2-0.8); MONOCYTES % 5.3 % (4.4-11.3); NEUTROPHILS # (AUTO) 20.1 (2.1-6.9); NEUTROPHILS % 91.6 % (38.7-80.0); PLATELET COUNT 318 x10e3/uL (140-360); RED BLOOD COUNT 3.16 x10e6/uL (4.3-5.7); RED CELL DISTRIBUTION WIDTH 23.2 % (11.7-14.4)
[2020-09-04 06:59] LABS: ALANINE AMINOTRANSFERASE 38 IU/L (0-55); ALBUMIN 2.3 g/dL (3.5-5.0); ALBUMIN/GLOBULIN RATIO 0.6 (0.8-2.0); ALKALINE PHOSPHATASE 101 IU/L (40-150); ANION GAP 15.2 mmol/L (8-16); BLOOD UREA NITROGEN 79 mg/dL (7-26); BUN/CREATININE RATIO 77 (6-25); CALCIUM 8.6 mg/dL (8.4-10.2); CARBON DIOXIDE 31 mmol/L (22-29); CHLORIDE 104 mmol/L (98-107); CREATININE, SERUM 1.03 mg/dL (0.72-1.25); EST GLOMERULAR FILTRATION RATE > 60 ML/MIN (60-); GLUCOSE 127 mg/dL (74-118); POTASSIUM 3.2 mmol/L (3.5-5.1); SODIUM 147 mmol/L (136-145)
[2020-09-04] MEDS: ASPIRIN 81 MG CHEW TAB PO SCH (08:21)
[2020-09-04] MEDS: SPIRONOLACTONE 25 MG TAB PO SCH (08:21)
[2020-09-04] MEDS: MIDODRINE HCL 5 MG TABLET PO SCH ×3 (08:21→17:12)
[2020-09-04] MEDS: BALSAM PERU/CASTOR OIL 60 GM OINT...G. TP SCH (08:21)
[2020-09-04] MEDS: TICAGRELOR 90 MG TABLET PO SCH (08:21)
[2020-09-04] MEDS: LIDOCAINE 4% PATCH TP SCH (08:21)
[2020-09-04] MEDS: CHLORTHALIDONE 25 MG TAB PO SCH (08:21)
[2020-09-04] MEDS: KCL 20 MEQ PACKET/ ORAL SOLN NG PRN (08:22)
[2020-09-04] MEDS ORDERED: CALCIUM CHLORIDE 10% 1.36 MEQ/ML 10ML SYR IV ONE (13:19)
[2020-09-04] MEDS ORDERED: SODIUM CHLORIDE FLUSH 10 ML SYR ONE (13:19)
[2020-09-04] MEDS ORDERED: SODIUM BICARBONATE 8.4% INJ 50 ML SYR ONE (13:19)
[2020-09-04] MEDS ORDERED: EPINEPHRINE HCL SYRINGE ONE (13:19)
[2020-09-04] MEDS ORDERED: MAGNESIUM SULF 1GRAM/DEXTROSE PREMIX BAG 100ML IV ONE (13:19)
[2020-09-05] VITALS (9 sets, daily range): BP systolic 80–135; BP diastolic 49–90
[2020-09-05] MEDS: VANCOMYCIN 250MG/5ML ORAL SOLN PO SCH ×2 (00:06→06:00)
[2020-09-05] MEDS ORDERED: MIDAZOLAM HCL 2 MG/2 ML VIAL IV PRN (05:45)
[2020-09-05] MEDS ORDERED: FENTANYL CITRATE INJ 2,000 MCG in SODIUM CHLORIDE 0.9% 250ML 210 ML IV SCH (05:45)
[2020-09-05] MEDS: METRONIDAZOLE 500MG/NS 100ML 100 ML IV SCH (06:00)
[2020-09-05] MEDS ORDERED: FENTANYL 2000MCG/NS 250 250 ML ONE (06:17)
[2020-09-05 07:06] LABS: BASOPHILS # (AUTO) 0.1 (0.0-0.1); BASOPHILS % 0.3 % (0.0-1.0); EOSINOPHILS % 0.1 % (0.0-6.0); HEMATOCRIT 39.9 % (38.2-49.6); HEMOGLOBIN 11.7 g/dL (14.0-18.0); LYMPHOCYTES # (AUTO) 0.9 (1.0-3.2); LYMPHOCYTES % 3.3 % (18.0-39.1); MEAN CORPUSCULAR HEMOGLOBIN 31.3 pg (28-32); MEAN CORPUSCULAR HGB CONC 29.3 g/dL (31-35); MEAN CORPUSCULAR VOLUME 106.7 fL (81-99); MONOCYTES # (AUTO) 1.8 (0.2-0.8); MONOCYTES % 6.8 % (4.4-11.3); NEUTROPHILS # (AUTO) 23.4 (2.1-6.9); NEUTROPHILS % 88.1 % (38.7-80.0); PLATELET COUNT 486 x10e3/uL (140-360); RED BLOOD COUNT 3.74 x10e6/uL (4.3-5.7); RED CELL DISTRIBUTION WIDTH 22.6 % (11.7-14.4)
[2020-09-05 07:26] LABS: ALBUMIN 2.6 g/dL (3.5-5.0); ALBUMIN/GLOBULIN RATIO 0.6 (0.8-2.0); ANION GAP 28.1 mmol/L (8-16); CALCIUM 9.1 mg/dL (8.4-10.2); CREATININE, SERUM 2.03 mg/dL (0.72-1.25)
[2020-09-05] MEDS ORDERED: NOREPINEPHRINE 8 MG/D5W 250 ML 250 ML ONE (07:28)
[2020-09-05] MEDS ORDERED: NOREPINEPHRINE 8 MG/D5W 250 ML 250 ML IV PRN (07:30)
[2020-09-05 07:35] LABS: POTASSIUM 5.1 mmol/L (3.5-5.1)
[2020-09-05 07:49] LABS: CREATINE KINASE MB 6.7 ng/mL (0-5.0)
[2020-09-05] MEDS: DEXMEDETOMIDINE 200MCG/NS 50ML 50 ML IV SCH (08:03)
[2020-09-05] MEDS: MIDODRINE HCL 5 MG TABLET PO SCH (08:33)
[2020-09-05] MEDS ORDERED: AMIODARONE HCL 100 ML IV ONE (09:21)
[2020-09-05] MEDS ORDERED: AMIODARONE 900MG 500 ML IV ONE (09:24)
[2020-09-05] MEDS ORDERED: AMIODARONE HCL 150 MG/100 ML BAG IV ONE (09:30)
[2020-09-05] MEDS ORDERED: AMIODARONE HCL 900 MG in DEXTROSE 5% 500ML 500 ML IV SCH (09:30)
[2020-09-05] MEDS ORDERED: AMIODARONE HCL 150 MG in DEXTROSE 5% 100ML 100 ML IV SCH (10:20)
[2020-09-05] MEDS ORDERED: AMIODARONE HCL 900 MG in DEXTROSE 5 % 500ML BOTTLE 500 ML IV SCH (10:30)
[2020-09-05] MEDS ORDERED: MEROPENEM 500MG 500 MG in SODIUM CHLORIDE 0.9% 50ML 50 ML IV ONE (11:00)
[2020-09-05] MEDS ORDERED: MEROPENEM 500 MG VIAL ONE (11:08)
[2020-09-05] MEDS ORDERED: MEROPENEM 500 MG VIAL IV SCH (11:30)
[2020-09-05] MEDS ORDERED: SODIUM CHLORIDE 0.9% 50ML 50 ML IV ONE (11:30)
== END 2020-09-05 12:40 | disposition expired | DRG 870 ==
LOC: ER 22:06 → ERHOLD 08-12 02:31 → MED/SURG2 08-12 02:51 → OBSVTOIN 08-13 08:50 → MED/SURG2 08-13 10:40 → ICU 08-21 15:33
PROVIDERS: ADMIT Internal Medicine; ATTEND Internal Medicine
PROC: 5A1955Z Respiratory Ventilation, Greater than 96 Consecutive Hours (ICD-10-PCS; principal; 2020-08-21)
PROC: 0BH18EZ Insertion of Endotracheal Airway into Trachea, Via Natural or Artificial Opening Endoscopic (ICD-10-PCS; 2020-08-21)
PROC: 02HV33Z Insertion of Infusion Device into Superior Vena Cava, Percutaneous Approach (ICD-10-PCS; 2020-08-21)
PROC: 02HV33Z Insertion of Infusion Device into Superior Vena Cava, Percutaneous Approach (ICD-10-PCS; 2020-09-03)
DX: A41.9 Sepsis, unspecified organism (principal); G93.41 Metabolic encephalopathy; J69.0 Pneumonitis due to inhalation of food and vomit; K85.90 Acute pancreatitis without necrosis or infection, unspecified; I50.23 Acute on chronic systolic (congestive) heart failure; J96.01 Acute respiratory failure with hypoxia; S22.42XA Multiple fractures of ribs, left side, initial encounter for closed fracture; E87.1 Hypo-osmolality and hyponatremia; F03.91 Unspecified dementia, unspecified severity, with behavioral disturbance; F05 Delirium due to known physiological condition; G81.90 Hemiplegia, unspecified affecting unspecified side; I13.0 Hypertensive heart and chronic kidney disease with heart failure and stage 1 through stage 4 chronic kidney disease, or unspecified chronic kidney disease; A09 Infectious gastroenteritis and colitis, unspecified; E87.0 Hyperosmolality and hypernatremia; I46.2 Cardiac arrest due to underlying cardiac condition; I27.20 Pulmonary hypertension, unspecified; I25.10 Atherosclerotic heart disease of native coronary artery without angina pectoris; Z95.1 Presence of aortocoronary bypass graft; I25.5 Ischemic cardiomyopathy; D46.9 Myelodysplastic syndrome, unspecified; Z95.810 Presence of automatic (implantable) cardiac defibrillator; E11.22 Type 2 diabetes mellitus with diabetic chronic kidney disease; N18.30 Chronic kidney disease, stage 3 unspecified; Z20.822 Contact with and (suspected) exposure to COVID-19; W19.XXXA Unspecified fall, initial encounter; I95.89 Other hypotension; G25.81 Restless legs syndrome; I35.0 Nonrheumatic aortic (valve) stenosis; Z79.01 Long term (current) use of anticoagulants; Z95.2 Presence of prosthetic heart valve; E87.6 Hypokalemia; F41.9 Anxiety disorder, unspecified
CPT/HCPCS: 36415; 36569; 36600; 70450; 71045; 71250; 74018; 74176; 76700; 76705; 80048; 80053; 80202; 81001; 82140; 82150; 82550; 82553; 82805; 82948; 83690; 83735; 83880; 84100; 84132; 84425; 84443; 84484; 84550; 85025; 85610; 85730; 87040; 87070; 87086; 87205; 92950; 93005; 93306; 94002; 94003; 94660; 96361; 97139; 99251; 99284; G0378; J0171; J0330; J0456; J0692; J0696; J1170; J1450; J1644; J1885; J1940; J2060; J2185; J2250; J2270; J2405; J2543; J3370; J3475; J3480; J3486; J7030; J7040; J7050; J7070; U0002